=== PATIENT | female | born 1960 | race Caucasian/White ===

== ENCOUNTER 2017-03-05 08:08 | Emergency (ER) | payer OTHER ==
[~2017-03-05] VITALS: Ht 91.4 cm; Wt 50.8 kg
[~2017-03-05 08:08] MED LIST: BCP; CYCL10TA9 PO; HYDR-3720 PO; HYDR-707 PO; HYDR1TAB PO; LEVO1TAB50 PO; LEVO500T69 PO; METH4TAB PO; NAPR-243 PO; PRD20T PO; PROM25SU10 RC; SULF-222 PO; SULF1TAB7 PO
[2017-03-05] MEDS ORDERED: NS IV 1000 ML 1,000 ML IV ONE ×2 (08:28→09:34)
[2017-03-05] MEDS ORDERED: ACETAMINOPHEN 500 MG TAB (TYLENOL) PO STA (08:28)
--- NOTE | 2017-03-05 08:30 | ED General ---
General Chief Complaint: Fever-Adult/Adol Stated Complaint: FLU SYMPTOMS/FEVER Nursing Triage Note: PT CO OF FEVER AND DIARRHEA SINCE FRIDAY Nursing Sepsis Screen: Possible Sepsis Risk Source of Information: Patient Exam Limitations: No Limitations History of Present Illness Time Seen by Provider: 08:20 Initial Comments Here with complaint of fever and diarrhea for the last 2 days. Not better with [id number] treatment. Has had multiple episodes of diarrhea daily. She is taking culturell probiotics and ibuprofen and that is not really helping. Is able to drink fluids. Complains of allover body aches. Timing/Duration: 2-3 Days Severity: Moderate Associated Systoms: No Cough, Fever/Chills, No Headaches, No Shortness of Air, Weakness Allergies and Home Medications Allergies Coded Allergies: No Known Drug Allergies (Unverified , 05/28/12) Home Medications Levonorgestrel-Eth Estradiol 1 Each Tablet, 1 EACH PO, (Reported) Constitutional: see HPI, chills, fever, weakness EENTM: no symptoms reported Respiratory: no symptoms reported, No cough, No short of breath Cardiovascular: no symptoms reported Gastrointestinal: abdominal pain, diarrhea, nausea, No vomiting Genitourinary: no symptoms reported Musculoskeletal: muscle pain (body aches), No neck pain Skin: no symptoms reported Psychiatric/Neurological: No Symptoms Reported All Other Systems Reviewed Negative Unless Noted: Yes Past Xljhidq-Ogbufw-Fumsrz Hx Patient Social History Alcohol Use: Denies Use Recreational Drug Use: No Smoking Status: Never a Smoker Recent Foreign Travel: No Contact w/Someone Who Travel: No Recent Infectious Disease Expo: No Surgeries HX Surgeries: Yes (C5-C6 FUSION) Surgeries: Orthopedic Respiratory Hx Respiratory Disorders: No Cardiovascular Hx Cardiac Disorders: No Neurological Hx Neurological Disorders: Yes (MYELITIS) Reproductive System Hx Reproductive Disorders: No Genitourinary Hx Genitourinary Disorders: No Gastrointestinal Hx Gastrointestinal Disorders: No Musculoskeletal Hx Musculoskeletal Disorders: No Endocrine Hx Endocrine Disorders: No HEENT HX ENT Disorders: No Cancer Hx Cancer: No Psychosocial Hx Psychiatric Problems: No Integumentary HX Skin/Integumentary Disorder: No Blood Transfusions Hx Blood Disorders: No Reviewed Nursing Assessment Reviewed/Agree w Nursing PMH: Yes Family Medical History Significant Family History: No Pertinent Family Hx Physical Exam Vital Signs Vital Sign - Last 12Hours 03/05/17 03/05/17 08:15 09:34 Temp 101.4 Pulse 119 Resp 18 B/P (MAP) 121/85 Pulse Ox 96 O2 Delivery Room Air Capillary Refill : Less Than 3 Seconds General Appearance: WD/WN, Mild Distress (achy) HEENT: PERRL/EOMI, Pharynx Normal Neck: Full Range of Motion, Non Tender, Supple Respiratory: Lungs Clear, Normal Breath Sounds Cardiovascular: No Murmur, Tachycardia Gastrointestinal: Non Tender, Soft Back: Normal Inspection, No CVA Tenderness, No Vertebral Tenderness Extremity: Normal Range of Motion, Non Tender Neurologic/Psychiatric: Alert, Oriented x3 Skin: Normal Color, Warm/Dry Progress/Results/Core Measures Results/Orders Lab Results Laboratory Tests Test 03/05/17 08:20 03/05/17 11:00 Range/Units White Blood Count 11.6 H 4.3-11.0 10^3/uL Red Blood Count 4.75 4.35-5.85 10^6/uL Hemoglobin 14.3 11.5-16.0 G/DL Hematocrit 42 35-52 % Mean Corpuscular Volume 89 80-99 FL Mean Corpuscular Hemoglobin 30 25-34 PG Mean Corpuscular Hemoglobin Concent 34 32-36 G/DL Red Cell Distribution Width 12.6 10.0-14.5 % Platelet Count 195 130-400 10^3/uL Mean Platelet Volume 9.3 7.4-10.4 FL Neutrophils (%) (Auto) 90 H 42-75 % Lymphocytes (%) (Auto) 5 L 12-44 % Monocytes (%) (Auto) 5 0-12 % Eosinophils (%) (Auto) 0 0-10 % Basophils (%) (Auto) 0 0-10 % Neutrophils # (Auto) 10.4 H 1.8-7.8 X 10^3 Lymphocytes # (Auto) 0.6 L 1.0-4.0 X 10^3 Monocytes # (Auto) 0.6 0.0-1.0 X 10^3 Eosinophils # (Auto) 0.0 0.0-0.3 10^3/uL Basophils # (Auto) 0.0 0.0-0.1 10^3/uL Neutrophils % (Manual) 83 % Lymphocytes % (Manual) 2 % Monocytes % (Manual) 5 % Eosinophils % (Manual) 0 % Basophils % (Manual) 0 % Band Neutrophils 10 % Toxic Granulation 1+ Sodium Level 136 135-145 MMOL/L Potassium Level 3.8 3.6-5.0 MMOL/L Chloride Level 104 98-107 MMOL/L Carbon Dioxide Level 21 21-32 MMOL/L Anion Gap 11 5-14 MMOL/L Blood Urea Nitrogen 10 7-18 MG/DL Creatinine 0.89 0.60-1.30 MG/DL Estimat Glomerular Filtration Rate > 60 BUN/Creatinine Ratio 11 Glucose Level 125 H 70-105 MG/DL Calcium Level 9.1 8.5-10.1 MG/DL Total Bilirubin 0.6 0.1-1.0 MG/DL Aspartate Amino Transf (AST/SGOT) 18 5-34 U/L Alanine Aminotransferase (ALT/SGPT) 11 0-55 U/L Alkaline Phosphatase 59 40-136 U/L Total Protein 6.8 6.4-8.2 GM/DL Albumin 4.2 3.2-4.5 GM/DL Urine Color YELLOW Urine Clarity CLEAR Urine pH 5 5-9 Urine Specific [place] 1.010 L 1.016-1.022 Urine Protein NEGATIVE NEGATIVE Urine Glucose (UA) NEGATIVE NEGATIVE Urine Ketones 2+ H NEGATIVE Urine Nitrite NEGATIVE NEGATIVE Urine Bilirubin NEGATIVE NEGATIVE Urine Urobilinogen NORMAL NORMAL MG/DL Urine Leukocyte Esterase NEGATIVE NEGATIVE Urine RBC (Auto) 3+ H NEGATIVE Urine RBC 0-2 /HPF Urine WBC NONE /HPF Urine Squamous Epithelial Cells 2-5 /HPF Urine Crystals NONE /LPF Urine Bacteria TRACE /HPF Urine Casts NONE /LPF Urine Mucus NEGATIVE /LPF Urine Culture Indicated NO My Orders Orders - FOSTER QUINN MD Cbc With Automated Diff (03/05/17 08:28) Comprehensive Metabolic Panel (03/05/17 08:28) Ua Culture If Indicated (03/05/17 08:28) Saline Lock/Iv-Start (03/05/17 08:28) Ns Iv 1000 Ml (Sodium Chloride 0.9%) (03/05/17 08:28) Acetaminophen Tablet (Tylenol Tablet) (03/05/17 08:28) Manual Differential (03/05/17 08:20) Saline Lock/Iv-Start (03/05/17 09:34) Ns Iv 1000 Ml (Sodium Chloride 0.9%) (03/05/17 09:34) Ketorolac Injection (Toradol Injection) (03/05/17 09:34) Rx-Nitroglycerin Sl Tabs (Rx-Nitrostat S (03/05/17 10:00) Medications Given in ED Current Medications Medications Dose Ordered Sig/Deepak Route Start Time Stop Time Status Last Admin Dose Admin Sodium Chloride 1,000 ml @ 0 mls/hr Q0M ONCE IV 03/05/17 08:28 03/05/17 08:31 DC 03/05/17 08:54 1,000 MLS/HR Sodium Chloride 1,000 ml @ 0 mls/hr Q0M ONCE IV 03/05/17 09:34 03/05/17 09:35 DC 03/05/17 09:57 1,000 MLS/HR Vital Signs/I&O Vital Sign - Last 12Hours 03/05/17 03/05/17 08:15 09:34 Temp 101.4 Pulse 119 122 Resp 18 28 B/P (MAP) 121/85 Pulse Ox 96 O2 Delivery Room Air Blood Pressure Mean: 97 Progress Note : Progress Note Seen and evaluated. IV, labs, UA, normal saline 1 L bolus ordered. Tylenol 1 g by mouth ordered. Monitor patient. Not significantly improved after and has not had to urinate yet. Normal saline 1 L bolus repeated. Toradol 30 mg IV ordered. Monitor patient. 1135: Overall better with some residual. Discharged home with return precautions. Patient and family verbalize understanding instructions and agreement with plan. Departure Impression Impression: Primary Impression: Diarrhea Qualified Codes: R19.7 - Diarrhea, unspecified Additional Impression: Viral syndrome Disposition: 01 HOME, SELF-CARE Condition: Stable Departure-Patient Inst. Referrals: JOSELITO TERESA MD (PCP/Family) Primary Care Physician Patient Instructions: Dehydration, Adult (DC), Diarrhea and Traveler's Diarrhea , Adult (DC), Fever, Adult (DC) Add. Discharge Instructions: All discharge instructions reviewed with patient and/or family. Voiced understanding. Clear liquid diet for 24 hours and then advance as tolerated. Follow-up with your Dr. in a few days for recheck. Continue probiotics. Drink plenty of fluids. Return for worse pain, fever, vomiting, weakness, breathing problems or other concerns as needed. You may take ibuprofen 800 mg every 8 hours as needed for pain. You may take Tylenol 1000 mg every 8 hours as needed for pain. FOSTER QUINN MD Mar 05, 2017 08:30
[2017-03-05 08:40] LABS: BASOPHILS % (AUTO) 0 % (0-10); EOSINOPHILS % (AUTO) 0 % (0-10); LYMPHOCYTES # (AUTO) 0.6 X 10^3 (1.0-4.0); LYMPHOCYTES % (AUTO) 5 % (12-44); MEAN CORPUSCULAR HEMOGLOBIN 30 PG (25-34); MEAN CORPUSCULAR HGB CONC 34 G/DL (32-36); MEAN CORPUSCULAR VOLUME 89 FL (80-99); MEAN PLATELET VOLUME 9.3 FL (7.4-10.4); MONOCYTES # (AUTO) 0.6 X 10^3 (0.0-1.0); MONOCYTES % (AUTO) 5 % (0-12); NEUTROPHILS # (AUTO) 10.4 X 10^3 (1.8-7.8); NEUTROPHILS % (AUTO) 90 % (42-75); PLATELET COUNT 195 10^3/uL (130-400); RED BLOOD COUNT 4.75 10^6/uL (4.35-5.85); RED CELL DISTRIBUTION WIDTH 12.6 % (10.0-14.5); WHITE BLOOD COUNT 11.6 10^3/uL (4.3-11.0)
[2017-03-05 09:01] LABS: ALANINE AMINOTRANSFERASE 11 U/L (0-55); ALBUMIN 4.2 GM/DL (3.2-4.5); ANION GAP 11 MMOL/L (5-14); ASPARTATE AMINO TRANSFERASE 18 U/L (5-34); BILIRUBIN,TOTAL 0.6 MG/DL (0.1-1.0); BLOOD UREA NITROGEN 10 MG/DL (7-18); BUN/CREATININE RATIO 11; CALCIUM 9.1 MG/DL (8.5-10.1); CARBON DIOXIDE 21 MMOL/L (21-32); CHLORIDE 104 MMOL/L (98-107); CREATININE SERUM 0.89 MG/DL (0.60-1.30); GFR ESTIMATED > 60; GLUCOSE 125 MG/DL (70-105); POTASSIUM 3.8 MMOL/L (3.6-5.0); SODIUM 136 MMOL/L (135-145); TOTAL PROTEIN 6.8 GM/DL (6.4-8.2)
[2017-03-05 09:15] LABS: BAND NEUTROPHILS 10 %; BASOPHILS % (MANUAL) 0 %; EOSINOPHILS % (MANUAL) 0 %; LYMPHOCYTES % (MANUAL) 2 %; NEUTROPHILS % (MANUAL) 83 %
[2017-03-05] MEDS ORDERED: KETOROLAC 30 MG/ML VIAL IVP STA (09:34)
[2017-03-05] MEDS ORDERED: RX-NITROGLYCERIN 0.4 MG TAB BTL 25'S SL PRN (10:00)
[2017-03-05 11:16] LABS: BILIRUBIN,URINE NEGATIVE (NEGATIVE); KETONES,URINE 2+ (NEGATIVE); LEUKOCYTE ESTERASE ,URINE NEGATIVE (NEGATIVE); NITRITE,URINE NEGATIVE (NEGATIVE); PH,URINE 5 (5-9); PROTEIN,URINE NEGATIVE (NEGATIVE); UROBILINOGEN,URINE NORMAL (NORMAL)
[2017-03-05 11:45] VITALS: BP 121/85
[2017-03-06] MEDS ORDERED: ESTR0.5T PO (08:38)
[2017-03-06] MEDS ORDERED: NF-NORETH5 PO (08:38)
[2017-03-06] MEDS ORDERED: METO-272 PO (08:38)
[2017-03-06] MEDS ORDERED: CALC1TAB PO (10:50)
[2017-03-06] MEDS ORDERED: CYAN10007 PO (10:50)
[2017-03-06] MEDS ORDERED: L. R1CAP3 PO (10:50)
[2017-03-06] MEDS ORDERED: ASCO60LO PO (10:50)
[2017-03-06] MEDS ORDERED: PED18TAB2 PO (10:50)
== END 2017-03-05 11:45 | disposition home or self-care (01) ==
LOC: EDUNIT# 08:08 → ER 08:10
DX: R19.7 Diarrhea, unspecified (principal); B34.9 Viral infection, unspecified; Z98.1 Arthrodesis status
CPT/HCPCS: 36415; 80053; 81000; 85007; 85027; 96361; 96374

== ENCOUNTER 2017-03-06 07:54 | Observation (INO) | payer OTHER ==
[~2017-03-06] VITALS: Ht 170.2 cm; Wt 75.3 kg
[2017-03-06 08:15] LABS: KETONES,URINE 4+ (NEGATIVE); LEUKOCYTE ESTERASE ,URINE 1+ (NEGATIVE); NITRITE,URINE NEGATIVE (NEGATIVE); PH,URINE 5 (5-9); PROTEIN,URINE 3+ (NEGATIVE); UROBILINOGEN,URINE 1 MG/DL (NORMAL)
[2017-03-06] MEDS ORDERED: NS IV 1000 ML 1,000 ML IV SCH (08:15)
[2017-03-06] MEDS ORDERED: KETOROLAC 30 MG/ML VIAL IVP ONE (08:15)
[2017-03-06 08:19] LABS: BILIRUBIN,URINE 1+ (NEGATIVE)
[2017-03-06 08:21] LABS: SQUAMOUS EPITHELIAL CELL,UR >50 /HPF; WBC,URINE RARE /HPF
[2017-03-06 08:26] LABS: BASOPHILS % (AUTO) 0 % (0-10); EOSINOPHILS % (AUTO) 0 % (0-10); LYMPHOCYTES # (AUTO) 0.9 X 10^3 (1.0-4.0); LYMPHOCYTES % (AUTO) 12 % (12-44); MEAN CORPUSCULAR HEMOGLOBIN 30 PG (25-34); MEAN CORPUSCULAR HGB CONC 34 G/DL (32-36); MEAN CORPUSCULAR VOLUME 88 FL (80-99); MEAN PLATELET VOLUME 9.1 FL (7.4-10.4); MONOCYTES # (AUTO) 0.6 X 10^3 (0.0-1.0); MONOCYTES % (AUTO) 7 % (0-12); NEUTROPHILS # (AUTO) 6.2 X 10^3 (1.8-7.8); NEUTROPHILS % (AUTO) 81 % (42-75); PLATELET COUNT 190 10^3/uL (130-400); RED BLOOD COUNT 4.68 10^6/uL (4.35-5.85); RED CELL DISTRIBUTION WIDTH 12.7 % (10.0-14.5); WHITE BLOOD COUNT 7.7 10^3/uL (4.3-11.0)
[2017-03-06] MEDS ORDERED: NF-NORETH5 PO (08:38)
[2017-03-06] MEDS ORDERED: ESTR0.5T PO (08:38)
[2017-03-06] MEDS ORDERED: METO-370 PO (08:38)
[2017-03-06 08:46] LABS: ALANINE AMINOTRANSFERASE 10 U/L (0-55); ANION GAP 13 MMOL/L (5-14); ASPARTATE AMINO TRANSFERASE 20 U/L (5-34); BILIRUBIN,TOTAL 0.6 MG/DL (0.1-1.0); BLOOD UREA NITROGEN 8 MG/DL (7-18); BUN/CREATININE RATIO 9; CALCIUM 8.3 MG/DL (8.5-10.1); CARBON DIOXIDE 20 MMOL/L (21-32); CHLORIDE 105 MMOL/L (98-107); CREATININE SERUM 0.91 MG/DL (0.60-1.30); GFR ESTIMATED > 60; GLUCOSE 98 MG/DL (70-105); POTASSIUM 3.2 MMOL/L (3.6-5.0); SODIUM 138 MMOL/L (135-145); TOTAL PROTEIN 6.9 GM/DL (6.4-8.2)
[2017-03-06 08:49] LABS: BAND NEUTROPHILS 23 %; BASOPHILS % (MANUAL) 0 %; EOSINOPHILS % (MANUAL) 0 %; LYMPHOCYTES % (MANUAL) 16 %; NEUTROPHILS % (MANUAL) 58 %
--- NOTE | 2017-03-06 09:31 | ED General ---
General Chief Complaint: General Problems/Pain Stated Complaint: FLU SYMPTOMS Nursing Triage Note: ADMIT TO ED WAS SEEN IN ED YESTERDAY FOR SAMETHING CON'T TO HAVE BODAY ACHES WITH PAIN MORE IN R LOWER AND DIARRHEA. Nursing Sepsis Screen: No Definite Risk Source of Information: Patient Exam Limitations: No Limitations History of Present Illness Time Seen by Provider: 09:05 Initial Comments The patient is a 56-year-old white female known to me. She was here yesterday with fever, myalgia, diarrhea and dehydration. She states that she did a strictly clear liquid diet for continued to have copious numbers of stools and returns today with generalized malaise and aching. She has not taken any antibiotics recently and has not to her knowledge been exposed to others with a diarrheal illness. Timing/Duration: 3-4 Days Associated Systoms: Fever/Chills, Loss of Appetite, Malaise Allergies and Home Medications Allergies Coded Allergies: No Known Drug Allergies (Unverified , 05/28/12) Home Medications Estradiol 0.5 Mg Tablet, (Reported) Levonorgestrel-Eth Estradiol 1 Each Tablet, 1 EACH PO, (Reported) Metoprolol Succinate 50 Mg Tab.er.24h, (Reported) Norethindrone 5 Mg Tab, (Reported) Constitutional: see HPI EENTM: no symptoms reported Respiratory: no symptoms reported Cardiovascular: no symptoms reported Gastrointestinal: see HPI Genitourinary: other (decrease frequency) Musculoskeletal: muscle pain Skin: no symptoms reported Psychiatric/Neurological: No Symptoms Reported Hematologic/Lymphatic: No Symptoms Reported Immunological/Allergic: no symptoms reported Past Etivrxw-Oygkel-Xzpgfs Hx Patient Social History Alcohol Use: Denies Use Recreational Drug Use: No Smoking Status: Never a Smoker Recent Foreign Travel: No Contact w/Someone Who Travel: No Recent Infectious Disease Expo: No Recent Hopitalizations: Yes Surgeries HX Surgeries: Yes (C5-C6 FUSION) Surgeries: Orthopedic Respiratory Hx Respiratory Disorders: No Cardiovascular Hx Cardiac Disorders: No Neurological Hx Neurological Disorders: Yes (MYELITIS) Reproductive System Hx Reproductive Disorders: No Genitourinary Hx Genitourinary Disorders: No Gastrointestinal Hx Gastrointestinal Disorders: No Musculoskeletal Hx Musculoskeletal Disorders: No Endocrine Hx Endocrine Disorders: No HEENT HX ENT Disorders: No Cancer Hx Cancer: No Psychosocial Hx Psychiatric Problems: No Integumentary HX Skin/Integumentary Disorder: No Blood Transfusions Hx Blood Disorders: No Family Medical History Significant Family History: No Pertinent Family Hx Physical Exam Vital Signs Vital Sign - Last 12Hours 03/06/17 07:57 Temp 100.6 Pulse 100 Resp 18 Pulse Ox 98 O2 Delivery Room Air Capillary Refill : Less Than 3 Seconds General Appearance: Mild Distress, Moderate Distress Eyes: Bilateral Eye Normal Inspection HEENT: Normal ENT Inspection Neck: Normal Inspection Respiratory: Chest Non Tender, Lungs Clear, Normal Breath Sounds, No Accessory Muscle Use, No Respiratory Distress Cardiovascular: Regular Rate, Rhythm, No Edema, No Gallop, No JVD, No Murmur, Normal Peripheral Pulses Gastrointestinal: Abnormal Bowel Sounds (decreased), Tenderness (generalized) Extremity: Normal Capillary Refill Skin: Normal Color, Warm/Dry Lymphatic: No Adenopathy Progress/Results/Core Measures Results/Orders Lab Results Laboratory Tests Test 03/06/17 07:57 03/06/17 08:18 Range/Units Urine Color YELLOW Urine Clarity SLIGHTLY CLOUDY Urine pH 5 5-9 Urine Specific [place] 1.025 H 1.016-1.022 Urine Protein 3+ H NEGATIVE Urine Glucose (UA) NEGATIVE NEGATIVE Urine Ketones 4+ H NEGATIVE Urine Nitrite NEGATIVE NEGATIVE Urine Bilirubin 1+ H NEGATIVE Urine Urobilinogen 1 NORMAL MG/DL Urine Leukocyte Esterase 1+ H NEGATIVE Urine RBC (Auto) 5+ H NEGATIVE Urine RBC 5-10 H /HPF Urine WBC RARE /HPF Urine Squamous Epithelial Cells >50 H /HPF Urine Crystals NONE /LPF Urine Bacteria FEW H /HPF Urine Casts NONE /LPF Urine Mucus SMALL H /LPF Urine Culture Indicated NO White Blood Count 7.7 4.3-11.0 10^3/uL Red Blood Count 4.68 4.35-5.85 10^6/uL Hemoglobin 14.1 11.5-16.0 G/DL Hematocrit 41 35-52 % Mean Corpuscular Volume 88 80-99 FL Mean Corpuscular Hemoglobin 30 25-34 PG Mean Corpuscular Hemoglobin Concent 34 32-36 G/DL Red Cell Distribution Width 12.7 10.0-14.5 % Platelet Count 190 130-400 10^3/uL Mean Platelet Volume 9.1 7.4-10.4 FL Neutrophils (%) (Auto) 81 H 42-75 % Lymphocytes (%) (Auto) 12 12-44 % Monocytes (%) (Auto) 7 0-12 % Eosinophils (%) (Auto) 0 0-10 % Basophils (%) (Auto) 0 0-10 % Neutrophils # (Auto) 6.2 1.8-7.8 X 10^3 Lymphocytes # (Auto) 0.9 L 1.0-4.0 X 10^3 Monocytes # (Auto) 0.6 0.0-1.0 X 10^3 Eosinophils # (Auto) 0.0 0.0-0.3 10^3/uL Basophils # (Auto) 0.0 0.0-0.1 10^3/uL Neutrophils % (Manual) 58 % Lymphocytes % (Manual) 16 % Monocytes % (Manual) 3 % Eosinophils % (Manual) 0 % Basophils % (Manual) 0 % Band Neutrophils 23 % Blood Morphology Comment NORMAL Sodium Level 138 135-145 MMOL/L Potassium Level 3.2 L 3.6-5.0 MMOL/L Chloride Level 105 98-107 MMOL/L Carbon Dioxide Level 20 L 21-32 MMOL/L Anion Gap 13 5-14 MMOL/L Blood Urea Nitrogen 8 7-18 MG/DL Creatinine 0.91 0.60-1.30 MG/DL Estimat Glomerular Filtration Rate > 60 BUN/Creatinine Ratio 9 Glucose Level 98 70-105 MG/DL Calcium Level 8.3 L 8.5-10.1 MG/DL Total Bilirubin 0.6 0.1-1.0 MG/DL Aspartate Amino Transf (AST/SGOT) 20 5-34 U/L Alanine Aminotransferase (ALT/SGPT) 10 0-55 U/L Alkaline Phosphatase 55 40-136 U/L Total Protein 6.9 6.4-8.2 GM/DL Albumin 4.0 3.2-4.5 GM/DL My Orders Orders - COLLEEN GEURRERO MD Cbc With Automated Diff (03/06/17 08:03) Comprehensive Metabolic Panel (03/06/17 08:03) Ua Culture If Indicated (03/06/17 08:03) Ns Iv 1000 Ml (Sodium Chloride 0.9%) (03/06/17 08:15) Ketorolac Injection (Toradol Injection) (03/06/17 08:15) Saline Lock/Iv-Start (03/06/17 08:38) Manual Differential (03/06/17 08:18) Medications Given in ED Current Medications Medications Dose Ordered Sig/Deepak Route Start Time Stop Time Status Last Admin Dose Admin Ketorolac Tromethamine 30 mg ONCE ONCE IVP 03/06/17 08:15 03/06/17 08:16 DC 03/06/17 08:27 30 MG Vital Signs/I&O Vital Sign - Last 12Hours 03/06/17 07:57 Temp 100.6 Pulse 100 Resp 18 B/P (MAP) Pulse Ox 98 O2 Delivery Room Air Departure Communication Progress Notes Discussed with Dr. Lewis who is covering for Dr. Ramirez. Patient will be admitted to observation for IV therapy 30 Impression Impression: Primary Impression: diarrhea/dehydration Disposition: ADMITTED INPATIENT Condition: Stable/Unchanged Admissions Decision to Admit Reason: Admit from ER (General) Decision to Admit/Date: Mar 06, 2017 Time/Decision to Admit Time: 09:37 Departure-Patient Inst. Referrals: JOSELITO RAMIREZ MD (PCP/Family) Primary Care Physician COLLEEN GUERRERO MD Mar 06, 2017 09:31
[2017-03-06] MEDS ORDERED: CATHETER FLUSH 10 ML SYR IV PRN (10:45)
[2017-03-06] MEDS ORDERED: PED18TAB2 PO (10:50)
[2017-03-06] MEDS ORDERED: L. R1CAP3 PO (10:50)
[2017-03-06] MEDS ORDERED: CALC1TAB PO (10:50)
[2017-03-06] MEDS ORDERED: CYAN10007 PO (10:50)
[2017-03-06] MEDS ORDERED: ASCO60LO PO (10:50)
[2017-03-06] MEDS: LACTATED RINGERS 1,000 ML IV SCH ×3 (11:17→21:30)
[2017-03-06 16:00] VITALS: BP 116/71
[2017-03-06] MEDS: ACETAMINOPHEN 500 MG TAB (TYLENOL) PO PRN (16:38)
[2017-03-06 19:32] LABS: ANION GAP 9 MMOL/L (5-14); BLOOD UREA NITROGEN 7 MG/DL (7-18); BUN/CREATININE RATIO 10; CALCIUM 8.6 MG/DL (8.5-10.1); CARBON DIOXIDE 22 MMOL/L (21-32); CHLORIDE 108 MMOL/L (98-107); CREATININE SERUM 0.71 MG/DL (0.60-1.30); GFR ESTIMATED > 60; GLUCOSE 77 MG/DL (70-105); POTASSIUM 3.3 MMOL/L (3.6-5.0); SODIUM 139 MMOL/L (135-145)
--- NOTE | 2017-03-06 19:43 | History & Physical ---
History of Present Illness History of Present Illness Reason for visit/HPI 56 yo F admitted for observation for continued diarrhea of 4 days duration- she was seen yesterday in the emergency department- received 2 bags of IVF and went home- she kept a clear diet and continued with diarrhea- multiple every hour- she feels dehydrated. Denies any vomiting- does have some nausea. No one else in the family has diarrhea but [facility] ER has seen a lot recently as well as hospital employees note a 2-3 day bout of diarrhea. Suspect the diarrhea is viral in nature. She also has noted a fever as did the ER on admission- Pt is admitted as outpatient therapy did not prevail even with IVF hydration- Will admit her as observation for rehydration and further evaluation into etiology. Pt is otherwise healthy 56 yo female with a little hypertension well controlled on blood pressure medication. Date of Admission Mar 06, 2017 at 09:38 Date Seen by Provider: Mar 06, 2017 Time Seen by Provider: 18:05 I consulted on this patient on 03/06/17 19:36 Attending Physician Chanda Ramirez MD Admitting Physician Elkin Lewis MD Consult Allergies and Home Medications Allergies Coded Allergies: Penicillins (Verified Allergy, Intermediate, RASH, 03/06/17) sulfamethoxazole (Verified Adverse Reaction, Severe, NAUSEA, 03/06/17) SEVERE NAUSEA AND BODY ACHES trimethoprim (Verified Adverse Reaction, Severe, NAUSEA, 03/06/17) SEVERE NAUSEA AND BODY ACHES Uncoded Allergies: TAPE (Adverse Reaction, Mild, RASH, 03/06/17) CAUSES SKIN TO BECOME RED AND IRRITATED Home Medications Ascorbic Acid 60 Mg Lozenge, 240 MG PO DAILY, (Reported) TAKES 4 (60 MG) TABLETS Calcium Carbonate/Vitamin D3 1 Each Tablet, 1 TAB PO DAILY, (Reported) Cholestyramine/Aspartame 4 Gm Powd.pack, 4 GM PO DAILY@1000 PRN for DIARRHEA, # 10 Prescribed by: ELKIN LEWIS on 03/08/17 0937 Cyanocobalamin (Vitamin B-12) 1,000 Mcg Tablet.er, 1,000 MCG PO DAILY, (Reported ) Estradiol 0.5 Mg Tablet, 0.5 MG PO DAILY, (Reported) L. Rhamnosus/C/Zinc Cit/Yeast 1 Each Capsule, 1 CAP PO DAILY, (Reported) Metoprolol Succinate 50 Mg Tab.er.24h, 50 MG PO DAILY, (Reported) Norethindrone 5 Mg Tab, 2.5 MG PO DAILY, (Reported) TAKES 1/2 OF A (5 MG) TABLET Ped Multivit #43/Iron Fumarate 18 Mg Tab.chew, 36 MG PO DAILY, (Reported) Past Qwpmkpy-Zpzrbs-Fffcgg Hx Patient Social History Alcohol Use: Denies Use Recreational Drug Use: No Smoking Status: Never a Smoker Physical Abuse Screen: No Sexual Abuse: No Recent Foreign Travel: No Contact w/other who traveled: No Recent Hopitalizations: Yes Recent Infectious Disease Expo: No Surgeries HX Surgeries: Yes (C5-C6 FUSION) Surgeries: Orthopedic Respiratory Hx Respiratory Disorders: No Cardiovascular Hx Cardiovascular Disorders: No Neurological Hx Neurological Disorders: Yes (MYELITIS) Reproductive System Hx Reproductive Disorders: No Genitourinary Hx Genitourinary Disorders: No Gastrointestinal Hx Gastrointestinal Disorders: No Musculoskeletal Hx Musculoskeletal Disorders: No Endocrine Hx Endocrine Disorders: No HEENT HX ENT Disorders: No Cancer Hx Cancer: No Psychosocial Hx Psychiatric Problems: No Integumentary HX Skin/Integumentary Disorder: No Blood Transfusions Hx Blood Disorders: No Family Medical History Significant Family History: No Pertinent Family Hx Review of Systems Review of Systems General: Chills, No Night Sweats HEENT: No Head Aches, No Visual Changes Pulmonary: No Dyspnea, No Cough Cardiovascular: No: Chest Pain, Palpitations, Orthopnea Gastrointestinal: Nausea, Abdominal Pain, Diarrhea, No: Vomiting Genitourinary: No Dysuria, No Frequency Musculoskeletal: No: neck pain, shoulder pain Neurological: Weakness, No: Numbness, Change in speech, Confusion Physical Exam Vital Signs Vital Sign - Last 12Hours 03/06/17 03/06/17 07:57 16:00 Temp 100.6 Pulse 100 Resp 18 B/P (MAP) 116/71 Pulse Ox 98 O2 Delivery Room Air Capillary Refill : Less Than 3 Seconds General Appearance: Mild Distress HEENT: PERRL/EOMI Neck: Full Range of Motion, Non Tender, Supple Respiratory: Chest Non Tender, Lungs Clear, Normal Breath Sounds Cardiovascular: Regular Rate, Rhythm, No Edema Gastrointestinal: Soft, Tenderness (minimal), Other (hyperactive bowel sounds) Rectal: Deferred Back: Normal Inspection, No CVA Tenderness, No Vertebral Tenderness Extremity: Non Tender Neurologic/Psychiatric: Alert, Oriented x3, No Motor/Sensory Deficits, Normal Mood/Affect, field services director II-XII Norm as Tested Skin: Warm/Dry Lymphatic: No Adenopathy Assessment/Plan Assessment/Plan Assessment/Plan 56 yo F *enteritis- suspect viral- IVF, will try loperamide- may also add questran- if bowel movements have not slowed down by tomorrow. *hypokalemia due to GI losses *weight loss- attributed to stress. *hypertension- normtensive- monitor Dispo: plan to monitor overnight- if diarrhea has improved possible d/c to home in AM. Problems: Clinical Quality Measures DVT/VTE Risk/Contraindication: Risk Factor Score Per Nursin RFS Level Per Nursing on Admit: 2=Moderate ELKIN LEWIS MD Mar 06, 2017 19:43
[2017-03-06 20:00] VITALS: BP 106/76
[2017-03-06] MEDS ORDERED: LOPERAMIDE 2 MG (IMODIUM) CAP PO NR (20:04)
[2017-03-07] VITALS: BP_SYST 129; BP_SYST 29; BP_DIAS 67
[2017-03-07] MEDS: LOPERAMIDE 2 MG (IMODIUM) CAP PO PRN ×3 (02:09→17:35)
[2017-03-07] MEDS: LACTATED RINGERS 1,000 ML IV SCH ×5 (02:43→22:34)
[2017-03-07 04:00] VITALS: BP 110/66
[2017-03-07 06:10] LABS: BASOPHILS % (AUTO) 0 % (0-10); EOSINOPHILS % (AUTO) 1 % (0-10); LYMPHOCYTES # (AUTO) 1.1 X 10^3 (1.0-4.0); LYMPHOCYTES % (AUTO) 18 % (12-44); MEAN CORPUSCULAR HEMOGLOBIN 30 PG (25-34); MEAN CORPUSCULAR HGB CONC 34 G/DL (32-36); MEAN CORPUSCULAR VOLUME 88 FL (80-99); MEAN PLATELET VOLUME 9.8 FL (7.4-10.4); MONOCYTES # (AUTO) 0.7 X 10^3 (0.0-1.0); MONOCYTES % (AUTO) 12 % (0-12); NEUTROPHILS # (AUTO) 4.1 X 10^3 (1.8-7.8); NEUTROPHILS % (AUTO) 69 % (42-75); PLATELET COUNT 186 10^3/uL (130-400); RED BLOOD COUNT 4.12 10^6/uL (4.35-5.85); RED CELL DISTRIBUTION WIDTH 12.5 % (10.0-14.5)
[2017-03-07 06:38] LABS: ALANINE AMINOTRANSFERASE 11 U/L (0-55); ALBUMIN 3.5 GM/DL (3.2-4.5); ANION GAP 12 MMOL/L (5-14); ASPARTATE AMINO TRANSFERASE 17 U/L (5-34); BILIRUBIN,TOTAL 0.4 MG/DL (0.1-1.0); BLOOD UREA NITROGEN 5 MG/DL (7-18); BUN/CREATININE RATIO 7; CALCIUM 8.7 MG/DL (8.5-10.1); CARBON DIOXIDE 20 MMOL/L (21-32); CHLORIDE 108 MMOL/L (98-107); GFR ESTIMATED > 60; GLUCOSE 75 MG/DL (70-105); POTASSIUM 3.1 MMOL/L (3.6-5.0); SODIUM 140 MMOL/L (135-145); TOTAL PROTEIN 6.1 GM/DL (6.4-8.2)
[2017-03-07 08:00] VITALS: BP 127/72
[2017-03-07] MEDS: ACETAMINOPHEN 500 MG TAB (TYLENOL) PO PRN (08:06)
[2017-03-07] MEDS ORDERED: YEAST PO SCH (09:00)
[2017-03-07] MEDS ORDERED: [UNRECOGNIZED DRUG - OTHER] PO SCH (09:00)
[2017-03-07] MEDS ORDERED: MAGNESIUM 1 GM/100 ML IVPB 100 ML IV NR (09:04)
[2017-03-07] MEDS ORDERED: KCL 20 MEQ TAB (K-DUR) PO NR (10:00)
[2017-03-07] MEDS: meTOproloL SUCCINATE 50 MG (TOPROL XL) TAB PO SCH (10:11)
--- NOTE | 2017-03-07 10:12 | Progress Note (SOAP) ---
Subjective Subjective Date Seen by Provider: Mar 07, 2017 Time Seen by Provider: 09:00 56 yo F continued diarrhea- Pt did not sleep much overnight due to diarrhea- CLD went right through her- would like to eat some food- crackers sound great. Loperamide not much help. Review of Systems General: No Chills, No Night Sweats HEENT: No Head Aches Pulmonary: No Dyspnea, No Cough Cardiovascular: No: Chest Pain Gastrointestinal: Diarrhea, No: Nausea, Vomiting Genitourinary: No Dysuria, No Frequency Neurological: No: Weakness, Change in speech Objective Exam Vital Signs Vital Signs Date Time Temp Pulse Resp B/P (MAP) Pulse Ox O2 Delivery O2 Flow Rate FiO2 03/08/17 07:52 98.2 69 18 138/63 97 Room Air 03/08/17 04:17 99.7 76 18 96/55 97 Room Air 03/08/17 00:00 97.7 84 20 100/59 97 Room Air 03/07/17 21:00 Room Air 03/07/17 20:00 99.6 76 21 112/72 98 Room Air 03/07/17 16:00 99.2 78 22 101/65 99 Room Air 03/07/17 12:00 97.0 84 18 124/80 99 Room Air I & O 03/09/17 07:00 Intake Total 1000 ml Balance 1000 ml General Appearance: Mild Distress Eyes: Bilateral Eye Normal Inspection HEENT: Normal ENT Inspection Neck: Normal Inspection Respiratory: Chest Non Tender, Lungs Clear, Normal Breath Sounds, No Accessory Muscle Use, No Respiratory Distress Cardiovascular: Regular Rate, Rhythm, No Edema, No Gallop, No JVD, No Murmur, Normal Peripheral Pulses Gastrointestinal: Abnormal Bowel Sounds (decreased), Tenderness (generalized) Extremity: Normal Capillary Refill Skin: Normal Color, Warm/Dry Lymphatic: No Adenopathy Results Lab Laboratory Tests 03/06/17 18:39: Sodium Level 139, Potassium Level 3.3L, Chloride Level 108H, Carbon Dioxide Level 22, Anion Gap 9, Blood Urea Nitrogen 7, Creatinine 0.71, Estimat Glomerular Filtration Rate > 60, BUN/Creatinine Ratio 10, Glucose Level 77, Calcium Level 8.6, Magnesium Level 1.6L 03/07/17 05:14: Sodium Level 140, Potassium Level 3.1L, Chloride Level 108H, Carbon Dioxide Level 20L, Anion Gap 12, Blood Urea Nitrogen 5L, Creatinine 0.70, Estimat Glomerular Filtration Rate > 60, BUN/Creatinine Ratio 7, Glucose Level 75, Calcium Level 8.7, White Blood Count 6.0, Red Blood Count 4.12L, Hemoglobin 12.4 , Hematocrit 36, Mean Corpuscular Volume 88, Mean Corpuscular Hemoglobin 30, Mean Corpuscular Hemoglobin Concent 34, Red Cell Distribution Width 12.5, Platelet Count 186, Mean Platelet Volume 9.8, Neutrophils (%) (Auto) 69, Lymphocytes (%) (Auto) 18, Monocytes (%) (Auto) 12, Eosinophils (%) (Auto) 1, Basophils (%) (Auto) 0, Neutrophils # (Auto) 4.1, Lymphocytes # (Auto) 1.1, Monocytes # (Auto) 0.7, Eosinophils # (Auto) 0.0, Basophils # (Auto) 0.0, Total Bilirubin 0.4, Aspartate Amino Transf (AST/SGOT) 17, Alanine Aminotransferase ( ALT/SGPT) 11, Alkaline Phosphatase 50, Total Protein 6.1L, Albumin 3.5 Assessment/Plan Assessment/Plan Assessment/Plan 56 yo F *enteritis-suspect viral ; IVF, loperamide- add questran- *hypokalemia due to GI losses - replacing *hypomagnesemia- replacing *weight loss- attributed to stress. *hypertension- controlled. Dispo: starting questran to see if it will slow her bowel movements down- pt remains afebrile, WBC normal- just appears to be a serious case of viral diarrhea -it has been going around the hospital lately which usually resolved in 2-3days. Problems: Clinical Quality Measures DVT/VTE Risk/Contraindication: Risk Factor Score Per Nursin RFS Level Per Nursing on Admit: 2=Moderate MORENO CRUZ MD Mar 07, 2017 10:12
[2017-03-07] MEDS ORDERED: CHOLESTYRAMINE 4 GM (QUESTRAN LITE, PREVALITE) PKT PO NR (10:38)
[2017-03-07 12:00] VITALS: BP 124/80
[2017-03-07 16:00] VITALS: BP 101/65
[2017-03-07 20:00] VITALS: BP 112/72
[2017-03-07] MEDS ORDERED: CHOLESTYRAMINE 4 GM (QUESTRAN LITE, PREVALITE) PKT PO ONE (21:15)
[2017-03-08] VITALS: BP 100/59
[2017-03-08] MEDS: LACTATED RINGERS 1,000 ML IV SCH ×2 (02:14→07:47)
[2017-03-08 04:17] VITALS: BP 96/55
[2017-03-08] MEDS: ACETAMINOPHEN 500 MG TAB (TYLENOL) PO PRN (06:13)
[2017-03-08] MEDS: meTOproloL SUCCINATE 50 MG (TOPROL XL) TAB PO SCH (07:47)
[2017-03-08 07:52] VITALS: BP 138/63
[2017-03-08 07:55] LABS: BASOPHILS % (AUTO) 1 % (0-10); EOSINOPHILS # (AUTO) 0.1 10^3/uL (0.0-0.3); EOSINOPHILS % (AUTO) 2 % (0-10); LYMPHOCYTES # (AUTO) 1.4 X 10^3 (1.0-4.0); LYMPHOCYTES % (AUTO) 29 % (12-44); MEAN CORPUSCULAR HEMOGLOBIN 30 PG (25-34); MEAN CORPUSCULAR HGB CONC 34 G/DL (32-36); MEAN CORPUSCULAR VOLUME 88 FL (80-99); MEAN PLATELET VOLUME 9.1 FL (7.4-10.4); MONOCYTES # (AUTO) 0.7 X 10^3 (0.0-1.0); MONOCYTES % (AUTO) 14 % (0-12); NEUTROPHILS # (AUTO) 2.5 X 10^3 (1.8-7.8); NEUTROPHILS % (AUTO) 54 % (42-75); PLATELET COUNT 193 10^3/uL (130-400); RED BLOOD COUNT 3.75 10^6/uL (4.35-5.85); RED CELL DISTRIBUTION WIDTH 12.6 % (10.0-14.5); WHITE BLOOD COUNT 4.7 10^3/uL (4.3-11.0)
[2017-03-08 08:15] LABS: ALANINE AMINOTRANSFERASE 8 U/L (0-55); ALBUMIN 3.1 GM/DL (3.2-4.5); ANION GAP 8 MMOL/L (5-14); ASPARTATE AMINO TRANSFERASE 15 U/L (5-34); BILIRUBIN,TOTAL 0.4 MG/DL (0.1-1.0); BLOOD UREA NITROGEN 2 MG/DL (7-18); BUN/CREATININE RATIO 3; CALCIUM 8.2 MG/DL (8.5-10.1); CARBON DIOXIDE 26 MMOL/L (21-32); CHLORIDE 107 MMOL/L (98-107); CREATININE SERUM 0.64 MG/DL (0.60-1.30); GFR ESTIMATED > 60; GLUCOSE 94 MG/DL (70-105); MAGNESIUM 1.5 MG/DL (1.8-2.4); POTASSIUM 3.3 MMOL/L (3.6-5.0); SODIUM 141 MMOL/L (135-145); TOTAL PROTEIN 5.1 GM/DL (6.4-8.2)
[2017-03-08] MEDS ORDERED: KCL 20 MEQ TAB (K-DUR) PO SCH (09:15)
[2017-03-08] MEDS ORDERED: CHOL4PAC3 PO (09:37)
[2017-03-08] MEDS: MAGNESIUM 1 GM/100 ML IVPB 100 ML IV SCH ×2 (09:43→10:45)
--- NOTE | 2017-03-08 09:44 | Discharge Inst-Simple/Standard ---
Discharge Inst-Standard Discharge Medications New, Converted or Re-Newed RX: Transmitted to Pharmacy Patient Instructions/Follow Up Plan of Care/Instructions/FU: Advance diet as tolerated- starting with saltine crackers- we discussed BRATS diet. may use questran (cholestyramine) as needed for diarrhea- prescription send to [facility]. -Follow up with Dr. Ramirez's office as needed- if diarrhea completely resolves follow up visit is not required. - In interval if questions arise may contact Elkin Lewis MD throught the hospital electron beam operator. Activity as Tolerated: Yes Discharge Diet: Regular Diet (advance as tolerated) Return to The Hospital For: worsening abdominal pain or diarrhea fever Planned Outpatient Orders/Ref. Pneu Vac Indicated: Yes ELKIN LEWIS MD Mar 08, 2017 09:44
--- NOTE | 2017-03-08 09:55 | Discharge Summary ---
Diagnosis/Chief Complaint Date of Admission Mar 06, 2017 at 09:38 Date of Discharge March 08, 2017 Admission Diagnosis Admission Diagnosis *enteritis- suspect viral- *hypokalemia due to GI losses *weight loss- *hypertension- Discharge Diagnosis *enteritis- suspect viral- *hypokalemia due to GI losses *weight loss- *hypertension- *hypomagnesemia Reason Hospital Visit 56 yo F admitted for observation for continued diarrhea of 4 days duration- she was seen yesterday in the emergency department- received 2 bags of IVF and went home- she kept a clear diet and continued with diarrhea- multiple every hour- she feels dehydrated. Denies any vomiting- does have some nausea. No one else in the family has diarrhea but [facility] has seen a lot recently as well as hospital employees note a 2-3 day bout of diarrhea. Suspect the diarrhea is viral in nature. She also has noted a fever as did the ER on admission- Pt is admitted as outpatient therapy did not prevail even with IVF hydration- Will admit her as observation for rehydration and further evaluation into etiology. Pt is otherwise healthy 56 yo female with a little hypertension well controlled on blood pressure medication. No recent antibiotics. Discharge Summary Hospital Course Hospital Course 56 yo female admitted under observation for intractable diarrhea even with iv hydration the day prior to admission. During this hospitalization patient's diarrhea was profuse. Patient was given loperamide without any assistance. She was placed on clear liquid diet initially and all attempts went right through her. She was given a regular diet as she was hungry and had not eaten in 4 days. This too worsened her diarrhea. She was then reduced to saltine crackers and water which seemed to help. With the excessive diarrhea patient developed hypokalemia and hypomagnesemia which were replaced. Pt continued to have diarrhea with minimal sleep the first night. A trial of cholestyramine was given and it helped with giving some bulk to her stools. The night prior to discharge pt did not have any diarrhea. On 03/08/17 patient was stable for discharge with significant improvement- she will continue questran if diarrhea starts to reoccur- she is to slowly advance her diet. Labs Laboratory Tests 03/06/17 07:57: Urine Specific Butler 1.025H, Urine Protein 3+H, Urine Ketones 4+H, Urine Bilirubin 1+H, Urine Leukocyte Esterase 1+H, Urine RBC (Auto) 5+H, Urine RBC 5- 10H, Urine Squamous Epithelial Cells >50H, Urine Bacteria FEWH, Urine Mucus SMALLH 03/06/17 08:18: Neutrophils (%) (Auto) 81H, Lymphocytes # (Auto) 0.9L, Potassium Level 3.2L, Carbon Dioxide Level 20L, Calcium Level 8.3L 03/06/17 18:39: Potassium Level 3.3L, Chloride Level 108H, Magnesium Level 1.6L 03/07/17 05:14: Potassium Level 3.1L, Carbon Dioxide Level 20L, Chloride Level 108H, Red Blood Count 4.12L, Blood Urea Nitrogen 5L, Total Protein 6.1L 03/08/17 07:35: Red Blood Count 3.75L, Hemoglobin 11.2L, Hematocrit 33L, Monocytes (%) (Auto) 14H, Potassium Level 3.3L, Blood Urea Nitrogen 2L, Calcium Level 8.2L, Magnesium Level 1.5L, Alkaline Phosphatase 37L, Total Protein 5.1L, Albumin 3.1L Procedures None. Discharge Physical Examination Allergies: Coded Allergies: Penicillins (Verified Allergy, Intermediate, RASH, 03/06/17) sulfamethoxazole (Verified Adverse Reaction, Severe, NAUSEA, 03/06/17) SEVERE NAUSEA AND BODY ACHES trimethoprim (Verified Adverse Reaction, Severe, NAUSEA, 03/06/17) SEVERE NAUSEA AND BODY ACHES Uncoded Allergies: TAPE (Adverse Reaction, Mild, RASH, 03/06/17) CAUSES SKIN TO BECOME RED AND IRRITATED Vitals & I&Os Vital Signs Date Time Temp Pulse Resp B/P (MAP) Pulse Ox O2 Delivery O2 Flow Rate FiO2 03/08/17 09:00 Room Air 03/08/17 07:52 98.2 69 18 138/63 97 General Appearance: Alert, Oriented X3, Cooperative HEENT: Atraumatic Respiratory: Clear to Auscultation, Normal Air Movement Cardiovascular: Regular Rate Abdominal: Normal Bowel Sounds, Soft Extremities: No Clubbing Skin: No Rashes, No Breakdown Neuro: Normal Gait, Normal Speech, Strength at 5/5 X4 Ext Psych/Mental Status: Mental Status NL, Mood NL Discharge Home Medications Reviewed and agree with Discharge Medication list on patient's Discharge Instruction sheet Condition at Discharge improved Instructions to Patient/Family Please see electronic discharge instructions given to patient. Clinical Quality Measures DVT/VTE Risk/Contraindication: Risk Factor Score Per Nursin RFS Level Per Nursing on Admit: 2=Moderate MORENO CRUZ MD Mar 08, 2017 09:55
[2017-03-08] MEDS ORDERED: CHOLESTYRAMINE 4 GM (QUESTRAN LITE, PREVALITE) PKT PO SCH (10:00)
== END 2017-03-08 09:35 | disposition home or self-care (01) ==
LOC: EDUNIT# 07:54 → ER 07:56 → UNDOADMOB 09:38 → 4TH 09:38 → UNDODISOB 03-08 12:00
PROVIDERS: ADMIT Family Medicine; ATTEND Family Medicine
DX: K52.9 Noninfective gastroenteritis and colitis, unspecified (principal); E87.6 Hypokalemia; R63.4 Abnormal weight loss; I10 Essential (primary) hypertension; E83.42 Hypomagnesemia; Z79.899 Other long term (current) drug therapy
CPT/HCPCS: 36415; 80048; 80053; 81000; 83735; 85007; 85025; 85027; 96361; 96374; G0378

== ENCOUNTER 2018-10-22 09:23 | Inpatient (IN) | payer BC, OTHER ==
[~2018-10-22] VITALS: Ht 170.2 cm; Wt 77.1 kg
[~2018-10-22 09:23] MED LIST changes: +ASCO60LO PO; +CALC1TAB PO; +CHOL4PAC3 PO; +CYAN10007 PO; +ESTR0.5T PO; +L. R1CAP3 PO; +METO-370 PO; +NF-NORETH5 PO; +PED18TAB2 PO
--- OUTSIDE RECORDS SUMMARY | 2018-10-22 09:35 | XMS REPORT | CCD ---
Author Author [facility] Organization [facility] Address [address] [place] [address] Phone Care Team Providers Care Teacher Resource Name Role Phone PP Unavailable CCM Unavailable Summary Purpose Interface Exchange Insurance Providers Payer name Policy type / Coverage type Covered green party ID Effective Begin Date Effective End Date Blue Cross Blue [facility] Blue Cross/Blue Shield [id number] Unknown Family history Father Diagnosis Age At Onset Hypertension Unknown Heart Attack Unknown Social History Social History Element Codes Description Effective Dates Marital status Unknown [place] 07/28/2018 Employment Unknown Currently employed 12/14/[address]: 104643331 Never smoker 12/14/2014 Alcohol history Unknown occasionally drinks alcohol 12/14/2014 Allergies, Adverse Reactions, Alerts Substance Reaction Codes Entered Date Inactivated Date Status * NO KNOWN FOOD ALLERGIES Unknown 12/14/2014 No Inactive Date Active AUGMENTIN RxNorm: 102104 12/14/2014 No Inactive Date Active SULFA(SULFONAMIDE ANTIBIOTICS) Unknown 12/14/2014 No Inactive Date Active Past Medical History Illness Codes Condition Status Onset Date Resolved Date Otalgia, left ear ICD- 9: 388.70 ICD-10: H92.02 Active 07/20/2018 Unknown Other allergic rhinitis ICD-9: 477.8 ICD-10: J30.89 Active 06/11/2017 Unknown Other specified disorders of Eustachian tube, left ear ICD-9: 381.81 ICD-10: H69.82 Active 07/28/2018 Unknown Acute upper respiratory infection, unspecified ICD-9: 465.9 ICD-10: J06.9 Active 07/17/2018 Unknown Acute laryngopharyngitis ICD-9: 465.0 ICD-10: J06.0 Active 06/11/2017 Unknown Other acute sinusitis ICD-9: 461.8 ICD-10: J01.80 Active 06/11/2017 Unknown Hypertension Unknown Active 03/13/2017 Unknown Encounter for follow-up examination after completed treatment for conditions other than malignant neoplasm ICD-9: V67.59 ICD-10: Z09 Active 03/13/2017 Unknown Essential (primary) hypertension ICD-9: 401.9 ICD-10: I10 Active 03/13/2017 Unknown Viral intestinal infection, unspecified ICD-9: 008.8 ICD-10: A08.4 Active 03/13/2017 Unknown Encounter for general adult medical examination without abnormal findings ICD-9: V70.0 ICD-10: Z00.00 Active 10/16/2015 Unknown Acute recurrent maxillary sinusitis ICD-9: 461.0 ICD-10: J01.01 Active 03/07/2016 Unknown Cough ICD-9: 786.2 ICD-10: R05 Active 03/07/2016 Unknown Dizziness and giddiness ICD-9: 780.4 ICD-10: R42 Active 03/04/2016 Unknown Elevated blood-pressure reading, without diagnosis of hypertension ICD-9: 796.2 ICD-10: R03.0 Active 03/04/2016 Unknown Tachycardia, unspecified ICD-9: 785.0 ICD-10: R00.0 Active 03/04/2016 Unknown Overweight ICD-9: 278.02 ICD-10: E66.3 Active 01/25/2016 Unknown Body mass index (BMI) 28.0-28.9, adult ICD-9: V85.24 ICD-10: Z68.28 Active 10/16/2015 Unknown Acute bronchitis, unspecified ICD-9: 466.0 ICD-10: J20.9 Active 10/04/2015 Unknown PREVENTIVE PHYSICAL EXAM ICD-9: V70.0 Active 12/13/2014 Unknown Problems Condition Codes Effective Dates Condition Status Otalgia, left ear ICD- 9: 388.70 ICD-10: H92.02 07/20/2018 Active Other allergic rhinitis ICD-9: 477.8 ICD-10: J30.89 06/11/2017 Active Other specified disorders of Eustachian tube, left ear ICD-9: 381.81 ICD-10: H69.82 07/28/2018 Active Acute upper respiratory infection, unspecified ICD-9: 465.9 ICD-10: J06.9 07/17/2018 Active Acute laryngopharyngitis ICD-9: 465.0 ICD-10: J06.0 06/11/2017 Active Other acute sinusitis ICD-9: 461.8 ICD-10: J01.80 06/11/2017 Active Hypertension Unknown 03/13/2017 Active Encounter for follow-up examination after completed treatment for conditions other than malignant neoplasm ICD-9: V67.59 ICD-10: Z09 03/13/2017 Active Essential (primary) hypertension ICD-9: 401.9 ICD-10: I10 03/13/2017 Active Viral intestinal infection, unspecified ICD-9: 008.8 ICD-10: A08.4 03/13/2017 Active Encounter for general adult medical examination without abnormal findings ICD-9: V70.0 ICD-10: Z00.00 10/16/2015 Active Acute recurrent maxillary sinusitis ICD-9: 461.0 ICD-10: J01.01 03/07/2016 Active Cough ICD-9: 786.2 ICD-10: R05 03/07/2016 Active Dizziness and giddiness ICD-9: 780.4 ICD-10: R42 03/04/2016 Active Elevated blood-pressure reading, without diagnosis of hypertension ICD-9: 796.2 ICD-10: R03.0 03/04/2016 Active Tachycardia, unspecified ICD-9: 785.0 ICD-10: R00.0 03/04/2016 Active Overweight ICD-9: 278.02 ICD-10: E66.3 01/25/2016 Active Body mass index (BMI) 28.0-28.9, adult ICD-9: V85.24 ICD-10: Z68.28 10/16/2015 Active Acute bronchitis, unspecified ICD-9: 466.0 ICD-10: J20.9 10/04/2015 Active PREVENTIVE PHYSICAL EXAM ICD-9: V70.0 12/13/2014 Active Medications Medication Codes Instructions Start Date Stop Date Status Fill Instructions Flonase Allergy Relief 50 mcg/actuation nasal spray, suspension RxNorm: 0352594 USE 1 SPRAY(S) IN EACH NOSTRIL TWICE DAILY 09/08/2018 No Stop Date Active Vilma Allergy 180 mg tablet RxNorm: 302395 1 Tablet(s) PO daily 07/28/2018 08/26/2018 Inactive Kenalog 40 mg/mL suspension for injection RxNorm: 1093814 1.5 Milliliter(s) Inj 07/20/2018 07/20/2018 Inactive prednisone 20 mg tablet RxNorm: 804416 1 Tablet(s) PO BID 07/2007/24/2018 Inactive morning and noon cefdinir 300 mg capsule RxNorm: 894816 1 Capsule(s) PO BID 07/26/2018 Inactive Zithromax Z-Davis 250 mg tablet RxNorm: 637194 1 Tablet(s) PO UD 07/17/2018 07/21/2018 Inactive Kenalog 40 mg/mL suspension for injection RxNorm: 5052587 Milliliter(s) Inj 07/17/2018 07/17/2018 Inactive Flonase Allergy Relief 50 mcg/actuation nasal spray, suspension RxNorm: 6500473 USE 1 SPRAY(S) IN EACH NOSTRIL TWICE DAILY 04/29/2018 09/07/2018 Inactive Flonase Allergy Relief 50 mcg/actuation nasal spray, suspension RxNorm: 3295334 USE ONE SPRAY(S) IN EACH NOSTRIL TWICE DAILY 11/19/2017 04/28/2018 Inactive Zithromax Z-Davis 250 mg tablet RxNorm: 420884 1 Tablet(s) PO UD 09/15/2017 09/19/2017 Inactive Flonase Allergy Relief 50 mcg/actuation nasal spray, suspension RxNorm: 4540828 1 Marathon NASAL BID 06/11/20172016 Inactive Zithromax Z-Davis 250 mg tablet RxNorm: 760475 1 Tablet(s) PO UD 06/11/2017 06/15/2017 Inactive Zithromax Z-Davis 250 mg tablet RxNorm: 571810 1 Tablet(s) PO UD 03/08/2016 03/12/2016 Inactive Cardizem CD 120 mg capsule,extended release RxNorm: 983129 1 Capsule(s) PO daily 03/05/2016 03/07/2016 Inactive phentermine 37.5 mg capsule RxNorm: 104825 1 Capsule(s) PO daily 12/22/2015 01/20/2016 Inactive norethindrone acetate 5 mg tablet RxNorm: 1337556 1/2 Tablet(s) PO daily 11/14/2015 12/13/2015 Inactive phentermine 37.5 mg capsule RxNorm: 558173 1 Capsule(s) PO daily 11/14/2015 12/13/2015 Inactive phentermine 37.5 mg capsule RxNorm: 221134 Capsule(s) PO 201511/13/2015 Inactive cefdinir 300 mg capsule RxNorm: 784677 1 Capsule(s) PO BID 10/11/2015 Inactive Zithromax Z-Davis 250 mg tablet RxNorm: 735816 1 Tablet(s) PO UD 09/05/2015 03/04/2016 Inactive 1 zpack estradiol 0.5 mg tablet RxNorm: 962924 1 Tablet(s) PO daily No Start Date Active metoprolol succinate ER 50 mg tablet,extended release 24 hr RxNorm: 036998 1 Tablet(s) PO daily Dr Milly lombardi No Start Date Active Mobic 15 mg tablet RxNorm: 191218 1 Tablet(s) PO daily No Start Date Active Zithromax Z-Davis 250 mg tablet RxNorm: 377273 1 Tablet(s) PO UD No Start Date 09/04/2015 Inactive 1 zpack Medication Administered Medication Codes Instructions Start Date Status Kenalog 40 mg/mL suspension for injection RxNorm: 6974416 1.5Milliliter 07/20/2018 No longer Active Kenalog 40 mg/mL suspension for injection RxNorm: 2117366 Milliliter 07/17/2018 No longer Active Immunizations Vaccine Codes Date Status PPD Unknown 11/14/2015 completed Assessments Condition Codes Effective Dates Other specified disorders of Eustachian tube, left ear ICD- 10: H69.82 ICD-9: 381.81 07/28/2018 Other allergic rhinitis ICD-10: J30.89 ICD-9: 477.8 07/28/2018 Otalgia, left ear ICD-10: H92.02 ICD-9: 388.70 07/28/2018 Acute upper respiratory infection, unspecified ICD-10: J06.9 ICD-9: 465.9 07/20/2018 Other acute sinusitis ICD-10: J01.80 ICD-9: 461.8 06/11/2017 Acute laryngopharyngitis ICD-10: J06.0 ICD-9: 465.0 06/11/2017 Viral intestinal infection, unspecified ICD-10: A08.4 ICD-9: 008.8 03/13/2017 Encounter for follow-up examination after completed treatment for conditions other than malignant neoplasm ICD-10: Z09 ICD-9: V67.59 03/13/2017 Essential (primary) hypertension ICD-10: I10 ICD-9: 401.9 03/13/2017 Encounter for general adult medical examination without abnormal findings ICD-10: Z00.00 ICD-9: V70.0 01/30/2017 Acute recurrent maxillary sinusitis ICD-10: J01.01 ICD-9: 461.0 03/08/2016 Cough ICD-10: R05 ICD-9: 786.2 03/08/2016 Tachycardia, unspecified ICD-10: R00.0 ICD-9: 785.0 03/05/2016 Dizziness and giddiness ICD-10: R42 ICD-9: 780.4 03/05/2016 Elevated blood-pressure reading, without diagnosis of hypertension ICD-10: R03.0 ICD-9: 796.2 03/05/2016 Overweight ICD-10: E66.3 ICD-9: 278.02 01/26/2016 Body mass index (BMI) 28.0-28.9, adult ICD-10: Z68.28 ICD-9: V85.24 10/17/2015 Acute bronchitis, unspecified ICD-10: J20.9 ICD-9: 466.0 10/05/2015 PREVENTIVE PHYSICAL EXAM ICD-9: V70.0 Reason For Visit Reason For Visit Effective Dates Notes earache 07/28/2018 earache 07/20/2018 cough 07/17/2018 sinus congestion 06/11/2017 Hospital Follow Up 03/13/2017 hypertension 01/30/2017 cough 03/08/2016 palpitations 03/05/2016 Weight follow up 01/26/2016 Weight follow up 12/22/2015 Weight follow up 11/14/2015 Hospital Follow Up 10/17/2015 Hospital Follow Up 10/05/2015 ~generic 12/14/2014 Results Observation Observation Code Item Item Code Result Date Tsh Ord6 hTSH II 1.25 uIU/mL 01/27/2017 Cbc With Differential Ord2 WBC 4.45 K/ul 01/27/2017 Cbc With Differential Ord2 RBC 4.67 M/ul 01/27/2017 Cbc With Differential Ord2 HGB 14.3 g/dl 01/27/2017 Cbc With Differential Ord2 HCT 42.5 % 01/27/2017 Cbc With Differential Ord2 Neut% 53.3 % 01/27/2017 Cbc With Differential Ord2 MCV 91.0 fl 01/27/2017 Cbc With Differential Ord2 Lymph% 37.5 % 01/27/2017 Cbc With Differential Ord2 MCH 30.6 pg 01/27/2017 Cbc With Differential Ord2 [place]% 7.0 % 01/27/2017 Cbc With Differential Ord2 MCHC 33.6 pg 01/27/2017 Cbc With Differential Ord2 Eos% 1.8 % 01/27/2017 Cbc With Differential Ord2 PLT 229 K/ul 01/27/2017 Cbc With Differential Ord2 Baso% 0.4 % 01/27/2017 Cbc With Differential Ord2 RDW 12.9 % 01/27/2017 Cbc With Differential Ord2 Neut ABS# 2.37 K/ul 01/27/2017 Cbc With Differential Ord2 Lymph ABS# 1.67 K/ul 01/27/2017 Cbc With Differential Ord2 [place] ABS# 0.3 K/ul 01/27/2017 Cbc With Differential Ord2 Eos ABS# 0.1 K/ul 01/27/2017 Cbc With Differential Ord2 Baso ABS# 0.0 K/ul 01/27/2017 Lipid Ord30 CHOL 168 mg/dL 01/27/2017 Lipid Ord30 HDL 50.0 mg/dl 01/27/2017 Lipid Ord30 TRIG 69 mg/dL 01/27/2017 Lipid Ord30 LDL 104 mg/dL 01/27/2017 Lipid Ord30 C/HDL 3.4 Ratio 01/27/2017 Comp Metabolic Aix050 NA 141 mEq/L 01/27/2017 Comp Metabolic Hvy734 K 3.9 mEq/L 01/27/2017 Comp Metabolic Qjm254 CL 105 mEq/L 01/27/2017 Comp Metabolic Tcc941 CO2 26.0 mEq/L 01/27/2017 Comp Metabolic Qrf621 ANION GAP 14 01/27/2017 Comp Metabolic Jfp385 GLUCOSE 83 mg/dL 01/27/2017 Comp Metabolic Enk147 Creat 1.0 mg/dL 01/27/2017 Comp Metabolic Zmy376 eGFR 65 ml/min/1.73m2 01/27/2017 Comp Metabolic Rqx969 BUN 21 mg/dL 01/27/2017 Comp Metabolic Zsi601 B/C Ratio 22.1 Ratio 01/27/2017 Comp Metabolic Nfm706 CALCIUM 9.4 mg/dL 01/27/2017 Comp Metabolic Vso587 ALK PHOS 47 U/L 01/27/2017 Comp Metabolic Uyq155 AST(SGOT) 15 U/L 01/27/2017 Comp Metabolic Elh399 ALT(SGPT) 10 U/L 01/27/2017 Comp Metabolic Llp433 BILI T 0.8 mg/dL 01/27/2017 Comp Metabolic Dku125 ALBUMIN 4.5 g/dL 01/27/2017 Comp Metabolic Wjf594 TPRO 6.7 g/dL 01/27/2017 Comp Metabolic Ujo633 GLOB 2.2 g/dL 01/27/2017 Comp Metabolic Qsb190 A/G Ratio 2.0 Ratio 01/27/2017 Comp Metabolic Cln313 Osmo 283 mOsmo 01/27/2017 Review of Systems System Result Effective Dates Constitutional recent illness 07/28/2018 Constitutional No anorexia 07/28/2018 Constitutional No night sweats 2018 Constitutional No chills 07/28/2018 Constitutional No diaphoresis 07/28/2018 Constitutional fatigue 07/28/2018 Constitutional No fever 07/28/2018 Constitutional No insomnia 07/28/2018 Constitutional No malaise 07/28/2018 Constitutional No weight loss 07/28/2018 Constitutional No weight gain 07/28/2018 Eyes No eye discharge 07/28/2018 Eyes No eye erythema 07/28/2018 Ears/Nose/Throat/Neck No dizziness 2018 Ears/Nose/Throat/Neck nasal allergies 02/2019 Ears/Nose/Throat/Neck No nasal discharge 07/28/2018 Ears/Nose/Throat/Neck No sinus congestion 07/28/2018 Ears/Nose/Throat/Neck sore throat 2018 Cardiovascular No chest pain/pressure 02/2019 Cardiovascular No dyspnea 07/28/2018 Cardiovascular No edema 07/28/2018 Respiratory No cough 07/28/2018 Gastrointestinal No abdominal pain 2018 Gastrointestinal No constipation 2018 Gastrointestinal No diarrhea 07/28/2018 Genitourinary/Nephrology No dysuria 07/28 Musculoskeletal No joint complaint 2018 Dermatologic No rash 07/28/2018 Neurologic No alteration of consciousness 07/28/2018 Ears/Nose/Throat/Neck otalgia 07/28/2018 Constitutional recent illness 07/17/2018 Constitutional No anorexia 07/17/2018 Constitutional No night sweats 2017 Constitutional No chills 07/17/2018 Constitutional No diaphoresis 07/17/2018 Constitutional No fatigue 07/17/2018 Constitutional No fever 07/17/2018 Constitutional No insomnia 07/17/2018 Constitutional No malaise 07/17/2018 Constitutional No weight loss 07/17/2018 Constitutional No weight gain 07/17/2018 Eyes No eye discharge 07/17/2018 Eyes No eye erythema 07/17/2018 Ears/Nose/Throat/Neck No dizziness 2017 Ears/Nose/Throat/Neck nasal discharge Ears/Nose/Throat/Neck nasal allergies Ears/Nose/Throat/Neck otalgia 07/17/2018 Ears/Nose/Throat/Neck sinus congestion Ears/Nose/Throat/Neck sore throat 2017 Cardiovascular No chest pain/pressure Cardiovascular No dyspnea 07/17/2018 Cardiovascular No edema 07/17/2018 Respiratory cough 07/17/2018 Gastrointestinal No abdominal pain 2017 Gastrointestinal No constipation 2017 Gastrointestinal No diarrhea 07/17/2018 Genitourinary/Nephrology No dysuria 07/17 Musculoskeletal No joint complaint 2017 Dermatologic No rash 07/17/2018 Neurologic No alteration of consciousness 07/17/2018 Constitutional recent illness 06/11/2017 Constitutional No chills 06/11/2017 Constitutional No diaphoresis 06/11/2017 Constitutional No fever 06/11/2017 Eyes No eye erythema 06/11/2017 Ears/Nose/Throat/Neck nasal allergies Ears/Nose/Throat/Neck nasal discharge Ears/Nose/Throat/Neck postnasal drip Ears/Nose/Throat/Neck sinus congestion Ears/Nose/Throat/Neck sore throat 2016 Cardiovascular No chest pain/pressure Cardiovascular No dyspnea 06/11/2017 Respiratory No chest congestion 2016 Respiratory cough 06/11/2017 Respiratory No dyspnea 06/11/2017 Gastrointestinal No constipation 2016 Gastrointestinal No diarrhea 06/11/2017 Gastrointestinal No nausea 06/11/2017 Gastrointestinal No vomiting 06/11/2017 Dermatologic No rash 06/11/2017 Neurologic No alteration of consciousness 06/11/2017 Neurologic No mental status change 2016 Ears/Nose/Throat/Neck otalgia 06/11/2017 Constitutional recent illness 03/13/2017 Constitutional No anorexia 03/13/2017 Constitutional No night sweats 2016 Constitutional No chills 03/13/2017 Constitutional No diaphoresis 03/13/2017 Constitutional No fatigue 03/13/2017 Constitutional No fever 03/13/2017 Constitutional No insomnia 03/13/2017 Constitutional No malaise 03/13/2017 Constitutional weight loss 03/13/2017 Constitutional No weight gain 03/13/2017 Eyes No eye discharge 03/13/2017 Eyes No eye erythema 03/13/2017 Ears/Nose/Throat/Neck No dizziness 2016 Ears/Nose/Throat/Neck No headache 2016 Cardiovascular No chest pain/pressure Cardiovascular No dyspnea 03/13/2017 Respiratory No cough 03/13/2017 Gastrointestinal No abdominal pain 2016 Gastrointestinal No constipation 2016 Gastrointestinal No diarrhea 03/13/2017 Genitourinary/Nephrology No dysuria 03/13 Musculoskeletal No joint complaint 2016 Dermatologic No rash 03/13/2017 Neurologic No alteration of consciousness 03/13/2017 Psychiatric No depression 03/13/2017 Endocrine No dry or coarse skin 2016 Hematologic/Lymphatic No abnormal ecchymoses 03/13/2017 Constitutional No recent illness 2016 Constitutional No anorexia 01/30/2017 Constitutional No night sweats 2016 Constitutional No chills 01/30/2017 Constitutional No diaphoresis 01/30/2017 Constitutional No fatigue 01/30/2017 Constitutional No fever 01/30/2017 Constitutional No insomnia 01/30/2017 Constitutional No malaise 01/30/2017 Constitutional No weight loss 01/30/2017 Constitutional No weight gain 01/30/2017 Eyes No eye discharge 01/30/2017 Eyes No eye erythema 01/30/2017 Ears/Nose/Throat/Neck No dizziness 2016 Ears/Nose/Throat/Neck No headache 2016 Cardiovascular No chest pain/pressure Cardiovascular No dyspnea 01/30/2017 Cardiovascular No edema 01/30/2017 Respiratory No cough 01/30/2017 Gastrointestinal No abdominal pain 2016 Gastrointestinal No constipation 2016 Gastrointestinal No diarrhea 01/30/2017 Genitourinary/Nephrology No dysuria 01/30 Musculoskeletal No joint complaint 2016 Dermatologic No rash 01/30/2017 Neurologic No alteration of consciousness 01/30/2017 Psychiatric No anxiety 01/30/2017 Endocrine No dry or coarse skin 2016 Hematologic/Lymphatic No abnormal bleeding and bruising 01/30/2017 Constitutional recent illness 03/08/2016 Constitutional No anorexia 03/08/2016 Constitutional No night sweats 2015 Constitutional No chills 03/08/2016 Constitutional No diaphoresis 03/08/2016 Constitutional No fatigue 03/08/2016 Constitutional No fever 03/08/2016 Constitutional No insomnia 03/08/2016 Constitutional No malaise 03/08/2016 Constitutional No weight loss 03/08/2016 Constitutional No weight gain 03/08/2016 Eyes No eye discharge 03/08/2016 Eyes No eye erythema 03/08/2016 Ears/Nose/Throat/Neck No dizziness 2015 Ears/Nose/Throat/Neck No headache 2015 Ears/Nose/Throat/Neck nasal allergies Ears/Nose/Throat/Neck nasal discharge Ears/Nose/Throat/Neck sinus congestion Ears/Nose/Throat/Neck No sore throat Ears/Nose/Throat/Neck otalgia 03/08/2016 Cardiovascular No chest pain/pressure Cardiovascular No dyspnea 03/08/2016 Respiratory productive sputum 03/08/2016 Respiratory cough 03/08/2016 Gastrointestinal No abdominal pain 2015 Dermatologic No rash 03/08/2016 Neurologic No alteration of consciousness 03/08/2016 Musculoskeletal No stiffness 03/08/2016 Constitutional recent illness 03/05/2016 Ears/Nose/Throat/Neck dizziness 2015 Ears/Nose/Throat/Neck No headache 2015 Eyes No eye discharge 03/05/2016 Eyes No eye erythema 03/05/2016 Cardiovascular dyspnea 03/05/2016 Cardiovascular near-syncope/dizziness Cardiovascular palpitations 03/05/2016 Respiratory No productive sputum 2015 Respiratory No cough 03/05/2016 Gastrointestinal No abdominal pain 2015 Gastrointestinal nausea 03/05/2016 Genitourinary/Nephrology No dysuria 03/05 Musculoskeletal No joint complaint 2015 Dermatologic No rash 03/05/2016 Neurologic No alteration of consciousness 03/05/2016 Psychiatric anxiety 03/05/2016 Ears/Nose/Throat/Neck nasal discharge Constitutional No recent illness 2015 Constitutional No night sweats 2015 Constitutional No anorexia 01/26/2016 Constitutional No chills 01/26/2016 Constitutional No diaphoresis 01/26/2016 Constitutional No fatigue 01/26/2016 Constitutional No fever 01/26/2016 Constitutional No insomnia 01/26/2016 Constitutional No malaise 01/26/2016 Constitutional No weight loss 01/26/2016 Constitutional No weight gain 01/26/2016 Constitutional No recent illness 2015 Constitutional No anorexia 12/22/2015 Constitutional No night sweats 2015 Constitutional No chills 12/22/2015 Constitutional No diaphoresis 12/22/2015 Constitutional No fatigue 12/22/2015 Constitutional No fever 12/22/2015 Constitutional No insomnia 12/22/2015 Constitutional No malaise 12/22/2015 Constitutional weight loss 12/22/2015 Constitutional No weight gain 12/22/2015 Constitutional No recent illness 2015 Constitutional No anorexia 11/14/2015 Constitutional No night sweats 2015 Constitutional No chills 11/14/2015 Constitutional No diaphoresis 11/14/2015 Constitutional No fatigue 11/14/2015 Constitutional No fever 11/14/2015 Constitutional No insomnia 11/14/2015 Constitutional No malaise 11/14/2015 Constitutional weight loss 11/14/2015 Constitutional No weight gain 11/14/2015 Constitutional No recent illness 2015 Constitutional No anorexia 10/17/2015 Constitutional No night sweats 2015 Constitutional No chills 10/17/2015 Constitutional No diaphoresis 10/17/2015 Constitutional No fatigue 10/17/2015 Constitutional No fever 10/17/2015 Constitutional No malaise 10/17/2015 Constitutional No weight loss 10/17/2015 Constitutional No weight gain 10/17/2015 Constitutional No insomnia 10/17/2015 Eyes No eye discharge 10/17/2015 Eyes No eye erythema 10/17/2015 Ears/Nose/Throat/Neck No dizziness 2015 Ears/Nose/Throat/Neck No headache 2015 Cardiovascular No chest pain/pressure Cardiovascular No dyspnea 10/17/2015 Cardiovascular No edema 10/17/2015 Respiratory No cough 10/17/2015 Gastrointestinal No abdominal pain 2015 Gastrointestinal No constipation 2015 Gastrointestinal No diarrhea 10/17/2015 Genitourinary/Nephrology No dysuria 10/16 Musculoskeletal No joint complaint 2015 Dermatologic No rash 10/17/2015 Neurologic No alteration of consciousness 10/17/2015 Psychiatric No anxiety 10/17/2015 Endocrine No dry or coarse skin 2015 Hematologic/Lymphatic No abnormal bleeding and bruising 10/17/2015 Constitutional recent illness 10/05/2015 Constitutional No anorexia 10/05/2015 Constitutional No night sweats 2015 Constitutional chills 10/05/2015 Constitutional No diaphoresis 10/05/2015 Constitutional No fatigue 10/05/2015 Constitutional No fever 10/05/2015 Constitutional No insomnia 10/05/2015 Constitutional No malaise 10/05/2015 Constitutional No weight loss 10/05/2015 Constitutional No weight gain 10/05/2015 Eyes No eye discharge 10/05/2015 Eyes No eye erythema 10/05/2015 Ears/Nose/Throat/Neck No dizziness 2015 Ears/Nose/Throat/Neck nasal allergies Cardiovascular No chest pain/pressure Respiratory productive sputum 10/05/2015 Respiratory chest congestion 10/05/2015 Respiratory cough 10/05/2015 Gastrointestinal No abdominal pain 2015 Gastrointestinal No constipation 2015 Gastrointestinal No diarrhea 10/05/2015 Genitourinary/Nephrology No dysuria 10/04 Musculoskeletal No joint complaint 2015 Dermatologic No rash 10/05/2015 Constitutional No fatigue 12/14/2014 Constitutional No fever 12/14/2014 Constitutional No insomnia 12/14/2014 Eyes No eye discharge 12/14/2014 Eyes No eye erythema 12/14/2014 Ears/Nose/Throat/Neck No headache 2014 Cardiovascular No chest pain/pressure Cardiovascular No edema 12/14/2014 Cardiovascular No near-syncope/dizziness 12/14/2014 Cardiovascular No syncope 12/14/2014 Respiratory No productive sputum 2014 Respiratory No chest congestion 2014 Respiratory No chest tightness 2014 Respiratory No cough 12/14/2014 Respiratory No dyspnea 12/14/2014 Gastrointestinal No abdominal pain 2014 Gastrointestinal No constipation 2014 Gastrointestinal No diarrhea 12/14/2014 Genitourinary/Nephrology No breast complaint 12/14/2014 Genitourinary/Nephrology No dysuria 12/14 Genitourinary/Nephrology No hematuria Genitourinary/Nephrology No urinary urgency 12/14/2014 Genitourinary/Nephrology No vaginal discharge 12/14/2014 Musculoskeletal No joint complaint 2014 Neurologic No alteration of consciousness 12/14/2014 Psychiatric No anxiety 12/14/2014 Psychiatric No depression 12/14/2014 Dermatologic No rash 12/14/2014 Dermatologic No scar 12/14/2014 Physical Exam Exam Name System Name Item Name Status Result Effective Dates Notes Full Exam - Cardiology Integument inspection/palpation Overall: no rash, lesions 07/28/2018 None Full Exam - Cardiology Psychiatric orientation/consciousness Overall: oriented to person, place and time 07/28/2018 None Full Exam - ENT Constitutional general appearance Overall: well nourished 07/28/2018 None Full Exam - ENT Constitutional general appearance Overall: well developed 07/28/2018 None Full Exam - ENT Constitutional general appearance Overall: in no acute distress 07/28/2018 None Full Exam - ENT Ears/Nose/Throat otoscopic exam Overall: external auditory canals normal 07/28/2018 None Full Exam - ENT Ears/Nose/Throat otoscopic exam Overall: tympanic membranes normal 07/28/2018 None Full Exam - ENT Ears/Nose/Throat oropharynx Overall: oral mucosa clear 07/28/2018 None Full Exam - ENT Face and Head palpation Left maxillary sinus: tender 07/28/2018 None Full Exam - ENT Face and Head palpation Right maxillary sinus: nontender 07/28/2018 None Full Exam - ENT Respiratory inspection Overall: no retractions 07/28/2018 None Full Exam - ENT Respiratory inspection Overall: normal rate 02/2019 None Full Exam - ENT Respiratory auscultation Overall: breath sounds clear bilaterally 07/28/2018 None Full Exam - ENT Cardiovascular auscultation of heart Overall: regular rate 07/28/2018 None Full Exam - ENT Cardiovascular auscultation of heart Overall: normal heart sounds 07/28/2018 None Full Exam - ENT Lymphatic palpation of lymph nodes Overall: anterior cervical chain benign 07/28/2018 None Full Exam - ENT Lymphatic palpation of lymph nodes Overall: posterior cervical chain benign 07/28/2018 None Full Exam - ENT Neurologic orientation Overall: oriented to person, place and time 07/28/2018 None Full Exam - ENT Constitutional general appearance Overall: well nourished 07/17/2018 None Full Exam - ENT Constitutional general appearance Overall: well developed 07/17/2018 None Full Exam - ENT Constitutional general appearance Overall: in no acute distress 07/17/2018 None Full Exam - ENT Ears/Nose/Throat otoscopic exam Overall: external auditory canals normal 07/17/2018 None Full Exam - ENT Ears/Nose/Throat otoscopic exam Overall: tympanic membranes normal 07/17/2018 None Full Exam - ENT Ears/Nose/Throat oropharynx Overall: oral mucosa clear 07/17/2018 None Full Exam - ENT Face and Head palpation Left maxillary sinus: tender 07/17/2018 None Full Exam - ENT Face and Head palpation Right maxillary sinus: tender 07/17/2018 None Full Exam - ENT Respiratory inspection Overall: no retractions 07/17/2018 None Full Exam - ENT Respiratory inspection Overall: normal rate None Full Exam - ENT Respiratory auscultation Overall: breath sounds clear bilaterally 07/17/2018 None Full Exam - ENT Cardiovascular auscultation of heart Overall: regular rate 07/17/2018 None Full Exam - ENT Cardiovascular auscultation of heart Overall: normal heart sounds 07/17/2018 None Full Exam - ENT Lymphatic palpation of lymph nodes Overall: anterior cervical chain benign 07/17/2018 None Full Exam - ENT Lymphatic palpation of lymph nodes Overall: posterior cervical chain benign 07/17/2018 None Full Exam - ENT Neurologic orientation Overall: oriented to person, place and time 07/17/2018 None Full Exam - Cardiology Psychiatric orientation/consciousness Overall: oriented to person, place and time 07/17/2018 None Full Exam - Cardiology Integument inspection/palpation Overall: no rash, lesions 07/17/2018 None Full Exam - ENT Constitutional general appearance Overall: well nourished 06/11/2017 None Full Exam - ENT Constitutional general appearance Overall: well developed 06/11/2017 None Full Exam - ENT Constitutional general appearance Overall: in no acute distress 06/11/2017 None Full Exam - ENT Ears/Nose/Throat otoscopic exam Overall: external auditory canals normal 06/11/2017 None Full Exam - ENT Ears/Nose/Throat otoscopic exam Left tympanic membrane: air -fluid level 06/11/2017 None Full Exam - ENT Ears/Nose/Throat otoscopic exam Right tympanic membrane: air-fluid level 06/11/2017 None Full Exam - ENT Ears/Nose/Throat lips/ teeth/gingiva Overall: benign lips 06/11/2017 None Full Exam - ENT Ears/Nose/Throat oropharynx Overall: oral mucosa clear 06/11/2017 None Full Exam - ENT Ears/Nose/Throat oropharynx Posterior Pharynx: clear post nasal drainage 06/11/2017 None Full Exam - ENT Ears/Nose/Throat oropharynx Posterior Pharynx: erythema 06/11/2017 None Full Exam - ENT Respiratory inspection Overall: no retractions 06/11/2017 None Full Exam - ENT Respiratory inspection Overall: normal rate None Full Exam - ENT Respiratory auscultation Overall: breath sounds clear bilaterally 06/11/2017 None Full Exam - ENT Cardiovascular auscultation of heart Rate: normal rate 06/11/2017 None Full Exam - ENT Cardiovascular auscultation of heart Rhythm: regular rhythm 06/11/2017 None Full Exam - ENT Lymphatic palpation of lymph nodes Overall: anterior cervical chain benign 06/11/2017 None Full Exam - ENT Lymphatic palpation of lymph nodes Overall: posterior cervical chain benign 06/11/2017 None Full Exam - ENT Neurologic mood and affect Overall: normal mood 06/11/2017 None Full Exam - ENT Neurologic mood and affect Overall: normal affect 06/11/2017 None Full Exam - ENT Neurologic orientation Overall: oriented to person, place and time 06/11/2017 None Full Exam - General 1994 Constitutional general appearance Overall: well developed 03/13/2017 None Full Exam - General 1994 Constitutional general appearance Overall: in no acute distress 03/13/2017 None Full Exam - General 1994 Constitutional general appearance Overall: well nourished 03/13/2017 None Full Exam - General 1994 Eyes conjunctiva /eyelids Overall: conjunctiva clear 03/13/2017 None Full Exam - General 1994 Respiratory auscultation Overall: breath sounds clear bilaterally 03/13/2017 None Full Exam - General 1994 Respiratory respiratory effort/rhythm Overall: no retractions 03/13/2017 None Full Exam - General 1994 Respiratory respiratory effort/rhythm Overall: normal rate 03/13/2017 None Full Exam - General 1994 Cardiovascular auscultation of heart Overall: regular rate 03/13/2017 None Full Exam - General 1994 Cardiovascular auscultation of heart Overall: normal heart sounds 03/13/2017 None Full Exam - General 1994 Cardiovascular auscultation of heart Overall: no murmurs 03/13/2017 None Full Exam - General 1994 Psychiatric orientation/consciousness Overall: oriented to person, place and time 03/13/2017 None Full Exam - General 1994 Ears/Nose/Throat otoscopic exam Overall: tympanic membranes clear 03/13/2017 None Full Exam - General 1994 Ears/Nose/Throat otoscopic exam Overall: external auditory canals clear 03/13/2017 None Full Exam - General 1994 Ears/Nose/Throat oral cavity/pharynx/larynx Overall: oral mucosa clear 03/13/2017 None Full Exam - General 1994 Abdomen abdominal exam Overall: normal bowel sounds 03/13/2017 None Full Exam - General 1994 Abdomen abdominal exam Overall: no tenderness 03/13/2017 None Full Exam - General 1994 Integument inspection of skin Overall: few scattered moles, no gross abnormalities 03/13/2017 None Full Exam - General 1994 Musculoskeletal gait and station Overall: normal gait 03/13/2017 None Full Exam - General 1994 Musculoskeletal gait and station Overall: normal station 03/13/2017 None Full Exam - General 1994 Lymphatic neck nodes Overall: anterior cervical chain benign 03/13/2017 None Full Exam - General 1994 Lymphatic neck nodes Overall: posterior cervical chain benign 03/13/2017 None Full Exam - Genitourinary/Female Constitutional general appearance Overall: well nourished 01/30/2017 None Full Exam - Genitourinary/Female Constitutional general appearance Overall: well developed 01/30/2017 None Full Exam - Genitourinary/Female Constitutional general appearance Overall: in no acute distress 01/30/2017 None Full Exam - Genitourinary/Female Eyes conjunctiva/eyelids Overall: conjunctiva clear 01/30/2017 None Full Exam - Genitourinary/Female Eyes pupils and irises Overall: pupils equal, round, reactive to light and accomodation 01/30/2017 None Full Exam - Genitourinary/Female Ears/Nose/Throat otoscopic exam Overall: external auditory canals clear 01/30/2017 None Full Exam - Genitourinary/Female Ears/Nose/Throat otoscopic exam Overall: tympanic membranes clear 01/30/2017 None Full Exam - Genitourinary/Female Ears/Nose/Throat oral cavity/pharynx/larynx Overall: oral mucosa clear 01/30/2017 None Full Exam - Genitourinary/Female Respiratory auscultation Overall: breath sounds clear bilaterally 01/30/2017 None Full Exam - Genitourinary/Female Respiratory respiratory effort/rhythm Overall: no retractions 01/30/2017 None Full Exam - Genitourinary/Female Respiratory respiratory effort/rhythm Overall: normal rate 01/30/2017 None Full Exam - Genitourinary/Female Cardiovascular auscultation of heart Overall: regular rate 01/30/2017 None Full Exam - Genitourinary/Female Cardiovascular auscultation of heart Overall: normal heart sounds 01/30/2017 None Full Exam - Genitourinary/Female Cardiovascular examination of vasculature Overall: no clubbing, cyanosis, edema 01/30/2017 None Full Exam - Genitourinary/Female Abdomen abdominal exam Overall: non tender, non distended 01/30/2017 None Full Exam - Genitourinary/Female Abdomen abdominal exam Overall: normal bowel sounds 01/30/2017 None Full Exam - Genitourinary/Female Abdomen abdominal exam Overall: no mass lesions 01/30/2017 None Full Exam - Genitourinary/Female Lymphatic inspection and palpation of nodes Overall: anterior cervical chain benign 01/30/2017 None Full Exam - Genitourinary/Female Lymphatic inspection and palpation of nodes Overall: posterior cervical chain benign 01/30/2017 None Full Exam - Genitourinary/Female Musculoskeletal head and neck Overall: head atraumatic 01/30/2017 None Full Exam - Genitourinary/Female Musculoskeletal gait and station Overall: normal gait 01/30/2017 None Full Exam - Genitourinary/Female Musculoskeletal gait and station Overall: normal station 01/30/2017 None Full Exam - Genitourinary/Female Integument inspection and palpation of skin Overall: no rash, lesions 01/30/2017 None Full Exam - Genitourinary/Female Neurologic mood and affect Overall: normal mood 01/30/2017 None Full Exam - Genitourinary/Female Neurologic mood and affect Overall: normal affect 01/30/2017 None Full Exam - Genitourinary/Female Psychiatric orientation/consciousness Overall: oriented to person, place and time 01/30/2017 None Full Exam - ENT Constitutional general appearance Overall: well nourished 03/08/2016 None Full Exam - ENT Constitutional general appearance Overall: well developed 03/08/2016 None Full Exam - ENT Constitutional general appearance Overall: in no acute distress 03/08/2016 None Full Exam - ENT Neurologic orientation Overall: oriented to person, place and time 03/08/2016 None Full Exam - ENT Lymphatic palpation of lymph nodes Overall: anterior cervical chain benign 03/08/2016 None Full Exam - ENT Lymphatic palpation of lymph nodes Overall: posterior cervical chain benign 03/08/2016 None Full Exam - ENT Cardiovascular auscultation of heart Overall: regular rate 03/08/2016 None Full Exam - ENT Cardiovascular auscultation of heart Overall: normal heart sounds 03/08/2016 None Full Exam - ENT Respiratory auscultation Overall: breath sounds clear bilaterally 03/08/2016 None Full Exam - ENT Respiratory inspection Overall: normal rate None Full Exam - ENT Respiratory inspection Overall: no retractions 03/08/2016 None Full Exam - ENT Face and Head palpation Left maxillary sinus: tender 03/08/2016 None Full Exam - ENT Face and Head palpation Right maxillary sinus: tender 03/08/2016 None Full Exam - ENT Ears/Nose/Throat otoscopic exam Overall: external auditory canals normal 03/08/2016 None Full Exam - ENT Ears/Nose/Throat otoscopic exam Overall: tympanic membranes normal 03/08/2016 None Full Exam - ENT Ears/Nose/Throat oropharynx Overall: oral mucosa clear 03/08/2016 None Full Exam - Genitourinary/Female Constitutional general appearance Overall: well nourished 03/05/2016 None Full Exam - Genitourinary/Female Constitutional general appearance Overall: well developed 03/05/2016 None Full Exam - Genitourinary/Female Constitutional general appearance Overall: in no acute distress 03/05/2016 None Full Exam - Genitourinary/Female Eyes conjunctiva/eyelids Overall: conjunctiva clear 03/05/2016 None Full Exam - Genitourinary/Female Eyes pupils and irises Overall: pupils equal, round, reactive to light and accomodation 03/05/2016 None Full Exam - Genitourinary/Female Ears/Nose/Throat otoscopic exam Overall: external auditory canals clear 03/05/2016 None Full Exam - Genitourinary/Female Ears/Nose/Throat otoscopic exam Overall: tympanic membranes clear 03/05/2016 None Full Exam - Genitourinary/Female Ears/Nose/Throat oral cavity/pharynx/larynx Overall: oral mucosa clear 03/05/2016 None Full Exam - Genitourinary/Female Respiratory auscultation Overall: breath sounds clear bilaterally 03/05/2016 None Full Exam - Genitourinary/Female Respiratory respiratory effort/rhythm Overall: no retractions 03/05/2016 None Full Exam - Genitourinary/Female Respiratory respiratory effort/rhythm Overall: normal rate 03/05/2016 None Full Exam - Genitourinary/Female Cardiovascular auscultation of heart Overall: normal heart sounds 03/05/2016 None Full Exam - Genitourinary/Female Cardiovascular examination of vasculature Overall: no clubbing, cyanosis, edema 03/05/2016 None Full Exam - Genitourinary/Female Abdomen abdominal exam Overall: non tender, non distended 03/05/2016 None Full Exam - Genitourinary/Female Abdomen abdominal exam Overall: normal bowel sounds 03/05/2016 None Full Exam - Genitourinary/Female Abdomen abdominal exam Overall: no mass lesions 03/05/2016 None Full Exam - Genitourinary/Female Lymphatic inspection and palpation of nodes Overall: anterior cervical chain benign 03/05/2016 None Full Exam - Genitourinary/Female Lymphatic inspection and palpation of nodes Overall: posterior cervical chain benign 03/05/2016 None Full Exam - Genitourinary/Female Musculoskeletal head and neck Overall: head atraumatic 03/05/2016 None Full Exam - Genitourinary/Female Musculoskeletal gait and station Overall: normal gait 03/05/2016 None Full Exam - Genitourinary/Female Musculoskeletal gait and station Overall: normal station 03/05/2016 None Full Exam - Genitourinary/Female Integument inspection and palpation of skin Overall: no rash, lesions 03/05/2016 None Full Exam - Genitourinary/Female Neurologic mood and affect Overall: normal mood 03/05/2016 None Full Exam - Genitourinary/Female Neurologic mood and affect Overall: normal affect 03/05/2016 None Full Exam - Genitourinary/Female Psychiatric orientation/consciousness Overall: oriented to person, place and time 03/05/2016 None Full Exam - Genitourinary/Female Cardiovascular auscultation of heart Rate: tachycardia 03/05/2016 None Full Exam - General 1994 Constitutional general appearance Overall: well developed 01/26/2016 None Full Exam - General 1994 Constitutional general appearance Overall: in no acute distress 01/26/2016 None Full Exam - General 1994 Constitutional general appearance Overall: well nourished 01/26/2016 None Full Exam - General 1994 Psychiatric orientation/consciousness Overall: oriented to person, place and time 01/26/2016 None Full Exam - General 1994 Respiratory auscultation Overall: breath sounds clear bilaterally 01/26/2016 None Full Exam - General 1994 Respiratory respiratory effort/rhythm Overall: normal rate 01/26/2016 None Full Exam - General 1994 Respiratory respiratory effort/rhythm Overall: no retractions 01/26/2016 None Full Exam - General 1994 Cardiovascular auscultation of heart Overall: regular rate 01/26/2016 None Full Exam - General 1994 Cardiovascular auscultation of heart Overall: normal heart sounds 01/26/2016 None Full Exam - General 1994 Cardiovascular auscultation of heart Overall: no murmurs 01/26/2016 None Full Exam - General 1994 Constitutional general appearance Overall: well developed 12/22/2015 None Full Exam - General 1994 Constitutional general appearance Overall: in no acute distress 12/22/2015 None Full Exam - General 1994 Constitutional general appearance Overall: well nourished 12/22/2015 None Full Exam - General 1994 Eyes conjunctiva /eyelids Overall: conjunctiva clear 12/22/2015 None Full Exam - General 1994 Respiratory auscultation Overall: breath sounds clear bilaterally 12/22/2015 None Full Exam - General 1994 Respiratory respiratory effort/rhythm Overall: no retractions 12/22/2015 None Full Exam - General 1994 Respiratory respiratory effort/rhythm Overall: normal rate 12/22/2015 None Full Exam - General 1994 Cardiovascular auscultation of heart Overall: regular rate 12/22/2015 None Full Exam - General 1994 Cardiovascular auscultation of heart Overall: normal heart sounds 12/22/2015 None Full Exam - General 1994 Cardiovascular auscultation of heart Overall: no murmurs 12/22/2015 None Full Exam - General 1994 Psychiatric orientation/consciousness Overall: oriented to person, place and time 12/22/2015 None Full Exam - General 1994 Constitutional general appearance Overall: well developed 11/14/2015 None Full Exam - General 1994 Constitutional general appearance Overall: in no acute distress 11/14/2015 None Full Exam - General 1994 Constitutional general appearance Overall: well nourished 11/14/2015 None Full Exam - General 1994 Psychiatric orientation/consciousness Overall: oriented to person, place and time 11/14/2015 None Full Exam - General 1994 Respiratory auscultation Overall: breath sounds clear bilaterally 11/14/2015 None Full Exam - General 1994 Respiratory respiratory effort/rhythm Overall: no retractions 11/14/2015 None Full Exam - General 1994 Respiratory respiratory effort/rhythm Overall: normal rate 11/14/2015 None Full Exam - General 1994 Cardiovascular auscultation of heart Overall: regular rate 11/14/2015 None Full Exam - General 1994 Cardiovascular auscultation of heart Overall: normal heart sounds 11/14/2015 None Full Exam - General 1994 Cardiovascular auscultation of heart Overall: no murmurs 11/14/2015 None Full Exam - General 1994 Eyes conjunctiva /eyelids Overall: conjunctiva clear 11/14/2015 None Full Exam - Genitourinary/Female Constitutional general appearance Overall: well nourished 10/17/2015 None Full Exam - Genitourinary/Female Constitutional general appearance Overall: well developed 10/17/2015 None Full Exam - Genitourinary/Female Constitutional general appearance Overall: in no acute distress 10/17/2015 None Full Exam - Genitourinary/Female Eyes conjunctiva/eyelids Overall: conjunctiva clear 10/17/2015 None Full Exam - Genitourinary/Female Eyes pupils and irises Overall: pupils equal, round, reactive to light and accomodation 10/17/2015 None Full Exam - Genitourinary/Female Ears/Nose/Throat otoscopic exam Overall: external auditory canals clear 10/17/2015 None Full Exam - Genitourinary/Female Ears/Nose/Throat otoscopic exam Overall: tympanic membranes clear 10/17/2015 None Full Exam - Genitourinary/Female Ears/Nose/Throat oral cavity/pharynx/larynx Overall: oral mucosa clear 10/17/2015 None Full Exam - Genitourinary/Female Respiratory auscultation Overall: breath sounds clear bilaterally 10/17/2015 None Full Exam - Genitourinary/Female Respiratory respiratory effort/rhythm Overall: no retractions 10/17/2015 None Full Exam - Genitourinary/Female Respiratory respiratory effort/rhythm Overall: normal rate 10/17/2015 None Full Exam - Genitourinary/Female Cardiovascular auscultation of heart Overall: regular rate 10/17/2015 None Full Exam - Genitourinary/Female Cardiovascular auscultation of heart Overall: normal heart sounds 10/17/2015 None Full Exam - Genitourinary/Female Cardiovascular examination of vasculature Overall: no clubbing, cyanosis, edema 10/17/2015 None Full Exam - Genitourinary/Female Abdomen abdominal exam Overall: non tender, non distended 10/17/2015 None Full Exam - Genitourinary/Female Abdomen abdominal exam Overall: normal bowel sounds 10/17/2015 None Full Exam - Genitourinary/Female Abdomen abdominal exam Overall: no mass lesions 10/17/2015 None Full Exam - Genitourinary/Female Lymphatic inspection and palpation of nodes Overall: anterior cervical chain benign 10/17/2015 None Full Exam - Genitourinary/Female Lymphatic inspection and palpation of nodes Overall: posterior cervical chain benign 10/17/2015 None Full Exam - Genitourinary/Female Musculoskeletal head and neck Overall: head atraumatic 10/17/2015 None Full Exam - Genitourinary/Female Musculoskeletal gait and station Overall: normal gait 10/17/2015 None Full Exam - Genitourinary/Female Musculoskeletal gait and station Overall: normal station 10/17/2015 None Full Exam - Genitourinary/Female Integument inspection and palpation of skin Overall: no rash, lesions 10/17/2015 None Full Exam - Genitourinary/Female Neurologic mood and affect Overall: normal mood 10/17/2015 None Full Exam - Genitourinary/Female Neurologic mood and affect Overall: normal affect 10/17/2015 None Full Exam - Genitourinary/Female Psychiatric orientation/consciousness Overall: oriented to person, place and time 10/17/2015 None Full Exam - ENT Constitutional general appearance Overall: well nourished 10/05/2015 None Full Exam - ENT Constitutional general appearance Overall: well developed 10/05/2015 None Full Exam - ENT Constitutional general appearance Overall: in no acute distress 10/05/2015 None Full Exam - ENT Neurologic orientation Overall: oriented to person, place and time 10/05/2015 None Full Exam - ENT Lymphatic palpation of lymph nodes Overall: anterior cervical chain benign 10/05/2015 None Full Exam - ENT Lymphatic palpation of lymph nodes Overall: posterior cervical chain benign 10/05/2015 None Full Exam - ENT Ears/Nose/Throat otoscopic exam Overall: external auditory canals normal 10/05/2015 None Full Exam - ENT Ears/Nose/Throat otoscopic exam Overall: tympanic membranes normal 10/05/2015 None Full Exam - ENT Ears/Nose/Throat oropharynx Overall: oral mucosa clear 10/05/2015 None Full Exam - ENT Cardiovascular auscultation of heart Overall: regular rate 10/05/2015 None Full Exam - ENT Cardiovascular auscultation of heart Overall: normal heart sounds 10/05/2015 None Full Exam - ENT Cardiovascular auscultation of heart Overall: no murmurs 10/05/2015 None Full Exam - ENT Respiratory auscultation Diffuse: expiratory wheezes 10/05/2015 None Full Exam - ENT Respiratory auscultation Diffuse: rhonchi 10/04 None Full Exam - Genitourinary/Female Constitutional general appearance Overall: well nourished 12/14/2014 None Full Exam - Genitourinary/Female Constitutional general appearance Overall: well developed 12/14/2014 None Full Exam - Genitourinary/Female Constitutional general appearance Overall: in no acute distress 12/14/2014 None Full Exam - Genitourinary/Female Eyes conjunctiva/eyelids Overall: conjunctiva clear 12/14/2014 None Full Exam - Genitourinary/Female Eyes pupils and irises Overall: pupils equal, round, reactive to light and accomodation 12/14/2014 None Full Exam - Genitourinary/Female Ears/Nose/Throat otoscopic exam Overall: external auditory canals clear 12/14/2014 None Full Exam - Genitourinary/Female Ears/Nose/Throat otoscopic exam Overall: tympanic membranes clear 12/14/2014 None Full Exam - Genitourinary/Female Ears/Nose/Throat oral cavity/pharynx/larynx Overall: oral mucosa clear 12/14/2014 None Full Exam - Genitourinary/Female Respiratory auscultation Overall: breath sounds clear bilaterally 12/14/2014 None Full Exam - Genitourinary/Female Respiratory respiratory effort/rhythm Overall: no retractions 12/14/2014 None Full Exam - Genitourinary/Female Respiratory respiratory effort/rhythm Overall: normal rate 12/14/2014 None Full Exam - Genitourinary/Female Cardiovascular auscultation of heart Overall: regular rate 12/14/2014 None Full Exam - Genitourinary/Female Cardiovascular auscultation of heart Overall: normal heart sounds 12/14/2014 None Full Exam - Genitourinary/Female Cardiovascular examination of vasculature Overall: no clubbing, cyanosis, edema 12/14/2014 None Full Exam - Genitourinary/Female Abdomen abdominal exam Overall: non tender, non distended 12/14/2014 None Full Exam - Genitourinary/Female Abdomen abdominal exam Overall: normal bowel sounds 12/14/2014 None Full Exam - Genitourinary/Female Abdomen abdominal exam Overall: no mass lesions 12/14/2014 None Full Exam - Genitourinary/Female Lymphatic inspection and palpation of nodes Overall: anterior cervical chain benign 12/14/2014 None Full Exam - Genitourinary/Female Lymphatic inspection and palpation of nodes Overall: posterior cervical chain benign 12/14/2014 None Full Exam - Genitourinary/Female Musculoskeletal head and neck Overall: head atraumatic 12/14/2014 None Full Exam - Genitourinary/Female Musculoskeletal gait and station Overall: normal gait 12/14/2014 None Full Exam - Genitourinary/Female Musculoskeletal gait and station Overall: normal station 12/14/2014 None Full Exam - Genitourinary/Female Integument inspection and palpation of skin Overall: no rash, lesions 12/14/2014 None Full Exam - Genitourinary/Female Neurologic mood and affect Overall: normal mood 12/14/2014 None Full Exam - Genitourinary/Female Neurologic mood and affect Overall: normal affect 12/14/2014 None Full Exam - Genitourinary/Female Psychiatric orientation/consciousness Overall: oriented to person, place and time 12/14/2014 None Procedures Procedure Codes Date TRIAMCINOLONE ACET INJ NOS CPT-4: J3301 07/20/2018 THER/PROPH/DIAG INJ SC/IM CPT-4: 36721 07/20/2018 TRIAMCINOLONE ACET INJ NOS CPT-4: J3301 07/17/2018 Vital Signs Date Vital 07/28/2018 Blood Pressure 1: 120/80 Code : 8480-6 BMI: 27.7 Code : 33410-9 Heart Rate 1 : 73 bpm Height: 5'7" SpO2: 99% Weight: 177 lbs 07/20/2018 Blood Pressure 1: 120/84 Code : 8480-6 Heart Rate 1: 91 bpm Height: 5'7" SpO2: 98% Temperature: 36.7 (C) / 98.1 (F) Weight: 07/17/2018 Blood Pressure 1: 112/78 Code : 8480-6 BMI: 27.9 Code : 82486-8 Heart Rate 1 : 60 bpm Height: 5'7" SpO2: 97% Temperature: 36.1 (C) / 97.0 (F) Weight: 178 lbs 06/11/2017 Blood Pressure 1: 126/74 Code : 8480-6 BMI: 27.1 Code : 44750-2 Heart Rate 1 : 77 bpm Height: 5'7" SpO2: 96% Weight: 173 lbs 03/13/2017 Blood Pressure 1: 118/64 Code : 8480-6 BMI: 24.4 Code : 50628-8 Heart Rate 1 : 88 bpm Height: 5'7" SpO2: 97% Weight: 156 lbs 01/30/2017 Blood Pressure 1: 112/72 Code : 8480-6 BMI: 25.5 Code : 88904-0 Heart Rate 1 : 71 bpm Height: 5'7" SpO2: 98% Weight: 163 lbs 03/08/2016 Blood Pressure 1: 104/62 Code : 8480-6 BMI: 25.8 Code : 22013-3 Heart Rate 1 : 95 bpm Height: 5'7" SpO2: 98% Weight: 165 lbs 03/05/2016 Blood Pressure 1: 144/98 Code : 8480-6 Heart Rate 1: 111 bpm Height: SpO2: 99% Temperature: 36.6 (C) / 97.8 (F) Weight: 01/26/2016 Blood Pressure 1: 128/82 Code : 8480-6 BMI: 26.5 Code : 11041-8 Heart Rate 1 : 89 bpm Height: 5'7" SpO2: 99% Weight: 169 lbs 12/22/2015 Blood Pressure 1: 118/78 Code : 8480-6 BMI: 26.5 Code : 26591-8 Heart Rate 1 : 87 bpm Height: 5'7" SpO2: 97% Weight: 169 lbs 11/14/2015 Blood Pressure 1: 112/70 Code : 8480-6 BMI: 26.9 Code : 18852-9 Heart Rate 1 : 91 bpm Height: 5'7" SpO2: 98% Weight: 172 lbs 10/17/2015 Blood Pressure 1: 110/70 Code : 8480-6 BMI: 28.2 Code : 11910-1 Heart Rate 1 : 77 bpm Height: 5'7" SpO2: 97% Weight: 180 lbs 10/05/2015 Blood Pressure 1: 128/80 Code : 8480-6 BMI: 28.0 Code : 65747-0 Heart Rate 1 : 88 bpm Height: 5'7" SpO2: 94% Weight: 179 lbs 12/14/2014 Blood Pressure 1: 130/92 Code : 8480-6 BMI: 28.3 Code : 98990-9 Heart Rate 1 : 90 bpm Height: 5'7" SpO2: 96% Weight: 181 lbs Functional Status No Functional Status data History of Present Illness Symptom Name Status Result Effective Date Notes Location left ear 02/2019 None Quality acute 2018 None Onset and Resolution ongoing 07/28/2018 None Triggers no known triggers 07/28/2018 None Onset of Symptom 1.5+ weeks ago 07/28/2018 None Onset and Resolution sudden in onset 07/28/2018 None Frequency of Episodes daily 07/28/2018 None Quality acute 2018 None Onset and Resolution sudden in onset 07/28/2018 None Onset and Resolution ongoing 07/28/2018 None Onset of Symptom 1.5+ weeks ago 07/28/2018 None Triggers no known associated factors 07/28/2018 None Pertinent Findings cough 07/28/2018 None Pertinent Findings Denies fever 07/28/2018 None Frequency of Episodes daily 07/28/2018 None Location left ear None Quality acute 2017 None Quality worsening None Onset and Resolution ongoing 07/20/2018 None Location in the throat 07/17/2018 None Quality dry 2017 None Onset of Symptom 1 days ago 07/17/2018 None Pertinent Findings Denies chest discomfort 07/17/2018 None Pertinent Findings Denies dyspnea 07/17/2018 None Pertinent Findings Denies fever 07/17/2018 None Pertinent Findings facial pain 07/17/2018 None Onset and Resolution sudden in onset 07/17/2018 None Onset of Symptom 1 days ago 07/17/2018 None Pertinent Findings cough 07/17/2018 None Pertinent Findings decreased energy level 07/17/2018 None Pertinent Findings facial pain 07/17/2018 None Pertinent Findings Denies fever 07/17/2018 None sinus congestion Location frontal sinuses 06/11/2017 None sinus congestion Quality constant 06/11/2017 None sinus congestion Quality fullness 06/11/2017 None sinus congestion Quality pressure 06/11/2017 None sinus congestion Onset and Resolution sudden in onset 06/11/2017 None sinus congestion Onset of Symptom 1 days ago 06/11/2017 None sinus congestion Frequency of Episodes daily 06/11/2017 None sore throat Location diffusely 06/11/2017 None sore throat Quality constant 06/11/2017 None sore throat Quality aching 06/11/2017 None sore throat Quality scratchy 06/11/2017 None sore throat Onset and Resolution sudden in onset 06/11/2017 None sore throat Onset of Symptom 1 days ago 06/11/2017 None Hospital Follow Up _ gastrointestinal complaints 03/13/2017 None Hospital Follow Up Quality acute illness 03/13/2017 None Hospital Follow Up Onset of Symptom 10 days ago 03/13/2017 None Hospital Follow Up Onset and Resolution resolved 03/13/2017 None Hospital Follow Up Severity moderate 03/13/2017 None Hospital Follow Up Significant Medical Conditions acute illness 03/13/2017 None Hospital Follow Up Alleviating Factors medication 03/13/2017 None Hospital Follow Up Alleviating Factors rest 03/13/2017 None Hospital Follow Up Pertinent Findings Denies pain 03/13/2017 None Hospital Follow Up Pertinent Findings fever 03/13/2017 None hypertension Onset and Resolution ongoing 01/30/2017 None hypertension Onset of Symptom during adulthood 01/30/2017 None hypertension Pertinent Findings Denies dizziness 01/30/2017 None hypertension Pertinent Findings Denies dyspnea 01/30/2017 None hypertension Pertinent Findings Denies edema 01/30/2017 None hypertension Blood Pressure Values not checking blood pressure at home 01/30/2017 None hypertension Severity not consistently severe symptoms, the symptoms fluctuate from no symptoms to anxiety and headaches 01/30/2017 None hypertension Frequency of Episodes unchanged 01/30/2017 None hypertension Triggers no known associated factors 01/30/2017 None cough Location in the lung 03/08/2016 None cough Quality constant 03/08/2016 None cough Quality hacking 03/08/2016 None cough Quality productive 03/08/2016 None cough Onset and Resolution sudden in onset 03/08/2016 None cough Onset of Symptom 5 days ago 03/08/2016 None cough Frequency of Episodes daily 03/08/2016 None cough Pertinent Findings chest discomfort 03/08/2016 None cough Pertinent Findings nasal congestion 03/08/2016 None sinus congestion Onset and Resolution sudden in onset 03/08/2016 None sinus congestion Onset of Symptom 5 days ago 03/08/2016 None sinus congestion Pertinent Findings cough 03/08/2016 None sinus congestion Pertinent Findings hoarseness 03/08/2016 None sinus congestion Location on both sides 03/08/2016 None sinus congestion Quality constant 03/08/2016 None sinus congestion Quality fullness 03/08/2016 None sinus congestion Quality pressure 03/08/2016 None palpitations Quality rapid and regular beats 03/05/2016 None palpitations Limitation on Activities moderately limits activities 03/05/2016 None palpitations Frequency of Episodes hourly 03/05/2016 None palpitations Onset of Symptom .5 hours ago 03/05/2016 None palpitations Onset and Resolution sudden in onset 03/05/2016 None palpitations Pertinent Findings dyspnea 03/05/2016 None palpitations Pertinent Findings nausea 03/05/2016 None palpitations Pertinent Findings tachycardia 03/05/2016 None palpitations Length of Episodes _ minutes 03/05/2016 None palpitations Triggers no known associated factors 03/05/2016 None Weight follow up Location diffusely 01/26/2016 None Weight follow up Pertinent Findings Denies fever 01/26/2016 None Weight follow up Onset and Resolution ongoing 01/26/2016 None Weight follow up Severity mild 01/26/2016 None Weight follow up Mechanism of injury unknown 01/26/2016 None Weight follow up Alleviating Factors medication 01/26/2016 None Weight follow up Location diffusely 12/22/2015 None Weight follow up Quality improving 12/22/2015 None Weight follow up Onset of Symptom 30 days ago 12/22/2015 None Weight follow up Exacerbating Factors medication 12/22/2015 None Weight follow up Pertinent Findings Denies fever 12/22/2015 None Weight follow up Onset and Resolution ongoing 12/22/2015 None Weight follow up Severity mild 12/22/2015 None Weight follow up Alleviating Factors medication 12/22/2015 None Weight follow up Quality intermittent 11/14/2015 None Weight follow up Pertinent Findings Denies fever 11/14/2015 None Weight follow up Onset and Resolution ongoing 11/14/2015 None Weight follow up Severity mild 11/14/2015 None Weight follow up Alleviating Factors medication 11/14/2015 None Hospital Follow Up _ Other: cold 10/17/2015 None Hospital Follow Up Quality constant 10/17/2015 None Hospital Follow Up Onset of Symptom 5 days ago 10/17/2015 None cough Location in the lung 10/17/2015 None cough Quality blood-tinged 10/17/2015 None cough Limitation on Activities does not limit activities 10/17/2015 None cough Frequency of Episodes increasing 10/17/2015 None cough Triggers no known associated factors 10/17/2015 None cough Pertinent Findings chest discomfort 10/17/2015 None cough Pertinent Findings dyspnea 10/17/2015 None Hospital Follow Up Onset and Resolution resolved 10/17/2015 None cough Onset and Resolution resolved 10/17/2015 None Hospital Follow Up _ Other: cold 10/05/2015 None Hospital Follow Up Quality constant 10/05/2015 None Hospital Follow Up Onset of Symptom 5 days ago 10/05/2015 None cough Location in the lung 10/05/2015 None cough Quality blood-tinged 10/05/2015 None cough Onset and Resolution ongoing 10/05/2015 None cough Limitation on Activities does not limit activities 10/05/2015 None cough Frequency of Episodes increasing 10/05/2015 None cough Triggers no known associated factors 10/05/2015 None cough Pertinent Findings chest discomfort 10/05/2015 None cough Pertinent Findings dyspnea 10/05/2015 None Advance Directives No Advance Directive data Encounters Encounter Performer Location Codes Date ([id number]) 22110 EST. PATIENT, LEVEL III Diagnosis: Otalgia, left ear[ICD10: H92.02] Diagnosis: Other allergic rhinitis[ICD10: J30.89] Diagnosis: Other specified disorders of Eustachian tube, left ear[ICD10: H69.82 ] [facility] CPT-4: 18437 2018 [id number]) 46443 EST. PATIENT, LEVEL III Diagnosis: Acute upper respiratory infection, unspecified[ICD10: J06.9] [facility] CPT-4: 19432 07/17/2018 19218 EST. PATIENT, LEVEL III Diagnosis: Acute laryngopharyngitis[ICD10: J06.0] Diagnosis: Other acute sinusitis[ICD10: J01.80] Diagnosis: Other allergic rhinitis[ICD10: J30.89] Nia Ramirez MD, [facility] CPT-4: 40653 06/11/2017 ([id number]) 46008 EST. PATIENT, LEVEL III Diagnosis: Viral intestinal infection, unspecified[ICD10: A08.4] Diagnosis: Essential (primary) hypertension[ICD10: I10] Diagnosis: Encounter for follow-up examination after completed treatment for conditions other than malignant neoplasm[ICD10: Z09] Francoise Ramirez MD, [facility] CPT-4: 15091 03/13/2017 ([id number]) PREV VISIT EST AGE 40-64 Diagnosis: Encounter for general adult medical examination without abnormal findings[ICD10: Z00.00] Francoise Ramirez MD, [facility] CPT-4: 65070 01/30/2017 ([id number]) 49533 EST. PATIENT, LEVEL III Diagnosis: Cough[ICD10: R05] Diagnosis: Acute recurrent maxillary sinusitis[ICD10: J01.01] Francoise Ramirez MD, [facility] CPT-4: 21466 03/08/2016 ([id number]) 32839 EST. PATIENT, LEVEL IV Diagnosis: Tachycardia, unspecified[ICD10: R00.0] Diagnosis: Dizziness and giddiness[ICD10: R42] Diagnosis: Elevated blood-pressure reading, without diagnosis of hypertension[ ICD10: R03.0] Francoise Ramirez MD, [facility] CPT-4: 59395 03/05/2016 ([id number]) Miscellaneous no charge Diagnosis: Overweight[ICD10: E66.3] Francoise Ramirez MD, [facility] CPT-4: 19278 01/26/2016 ([id number]) Miscellaneous no charge Diagnosis: Overweight[ICD10: E66.3] Francoise Ramirez MD [facility] CPT-4: 32859 12/22/2015 ([id number]) Miscellaneous no charge Diagnosis: Overweight[ICD10: E66.3] Francoise Ramirez MD, [facility] CPT-4: 06344 11/14/2015 ([id number]) PREV VISIT EST AGE 40-64 Diagnosis: Encounter for general adult medical examination without abnormal findings[ICD10: Z00.00] Diagnosis: Body mass index (BMI) 28.0-28.9, adult[ICD10: Z68.28] Francoise Ramirez MD, [facility] CPT-4: 78769 10/17/2015 ([id number]) 52521 EST. PATIENT, LEVEL III Diagnosis: Cough[ICD10: R05] Diagnosis: Acute bronchitis, unspecified[ICD10: J20.9] Francoise Ramirez MD, [facility] CPT-4: 40322 10/05/2015 ([id number]) OFFICE VISIT, NEW - LEVEL 4 Diagnosis: PREVENTIVE PHYSICAL EXAM[ICD9: V70.0] Chanda Ramirez MD, [facility] CPT-4: 24590 12/14/2014 Plan of Care Planned Activity Notes Codes Status Date Referral: [id number] Patient informed. Referral info faxed. Completed 08/05/2018 Visit Plan: Allergies - left earache - recommended pt to use allergy medication as prescribed. Pt has been counseled as to the appropriate use of the medication. Pt to call if allergy symptoms are not controlled with the medication. If using nasal spray, instructions as follows: Nasal spray- use twice daily, one spray per nostril twice daily, after 30 minutes, rinse out nose with saline spray.. Use opposite hand per nostril to spray in the nasal steroid allergy spray. 07/28/2018 Appointment: Francoise Perry WPtel: [address] [place] [address] (15 min) Moderate 07/28/2018 Patient Education: Patient Medication Summary Completed 07/28/2018 Care Plan: Referral Order SNOMED-CT : [id number] Pending 07/28/2018 Visit Plan: EQM-dzegwau-jrltwhc injection today in the office 07/20/2018 Appointment: Francoise Perry WPtel: [address] [place] [address] (15 min) Moderate 07/20/2018 Patient Education: Patient Medication Summary Completed 07/20/2018 Visit Plan: URI - Pt advised to increase fluids, vitamin C. Discussed natural and expected course of this diagnosis and need to alert me if symptoms do not follow expected course, or if any worse. RX sent to patient' s pharmacy. 07/17/2018 Appointment: Francoise Perry WPtel: [phone] [phone] [place] (15 min) Moderate 07/17/2018 Patient Education: Patient Medication Summary Completed 07/17/2018 Appointment[facility]el[facility] (30 min) Complex 07/09/2017 Visit Plan: URI - Pt advised to increase fluids, vitamin C. Discussed natural and expected course of this diagnosis and need to alert me if symptoms do not follow expected course, or if any worse. RX sent to patient' s pharmacy. Sinusitis - Pt has acute infection - pain in face, maxillary region , Pt informed to use decongestant, RX given to patient, sinus rinses also recommended. Call if symptoms do not show improvement. Allergies - chronic - recommended pt to use allergy medication as prescribed. Pt has been counseled as to the appropriate use of the medication. Pt to call if allergy symptoms are not controlled with the medication. If using nasal spray, instructions as follows: Nasal spray- use twice daily, one spray per nostril twice daily, after 30 minutes, rinse out nose with saline spray.. Use opposite hand per nostril to spray in the nasal steroid allergy spray. 06/11/2017 Appointment: N[facility] Shanks [facility]el[facility] (15 min) Moderate 06/11/2017 Patient Education: Patient Medication Summary Completed 06/11/2017 Visit Plan: Viral enteritis-hospital follow up-symptoms resolved-no further treatment indicated HTN-blood pressure normal after illness resolved-continue to monitor. 03/13/2017 Appointment: Francoise Perry WPtel: [phone] [place] (15 min) Moderate 03/13/2017 Patient Education: Patient Medication Summary Completed 03/13/2017 Patient Education: Hypertension Completed 03/13/2017 Appointment: Francoise Perry WPtel: [phone] [place] (30 min) Complex 03/07/2017 Visit Plan: Well Adult - pt was counseled about diet, exercise, and encouraged to follow a heart healthy diet and increase activity level. The patient was instructed to RTC yearly for well adult exams and PRN for acute illnesses. The pt was also instructed to have yearly labs for check of cholesterol, thyroid, chem panel, CBC, and renal functioning. 01/30/2017 Appointment: Francoise Perry WPtel: [phone] (15 min) Moderate 01/30/2017 Patient Education: Patient Medication Summary Completed 01/30/2017 Patient Education: Obesity Completed 01/30/2017 Patient Education: Patient Medication Summary Completed 01/23/2017 Visit Plan: Sinusitis-cough- Pt has acute infection - pain in face, maxillary region, Pt informed to use decongestant, RX given to patient , sinus rinses also recommended. Call if symptoms do not show improvement. 03/08/2016 Appointment: Francoise Perry WPtel: [phone] (15 min) Moderate 03/08/2016 Patient Education: Patient Medication Summary Completed 03/08/2016 Patient Education: Obesity Completed 03/08/2016 Visit Plan: Elevated Blood Pressure - without diagnosis of hypertension - pt has been instructed to check blood pressure as an outpatient, record blood pressure and heart rate and report to the clinic in two weeks on the findings. Pt advised to cut back on added salt in the diet. Tachycardia- dizziness-patient sent to the hospital for labs and EKG-will start on cardizem- plan to refer to Dr Sanchez if indicated-consider echo as well 03/05/2016 Appointment: Francoise Perry WPtel: [phone] [phone] (15 min) Moderate 03/05/2016 Patient Education: Patient Medication Summary Completed 03/05/2016 Care Plan: COMPLETE CBC AUTOMATED LOINC : 05553-9 Pending 03/05/2016 Visit Plan: Overweight-off phentermine x 1 month-may restart in 1 month-will need weight check in 2 months 01/26/2016 Patient Education: Patient Medication Summary Completed 01/26/2016 Patient Education: Obesity Completed 01/26/2016 Care Plan: BMI Above normal followup SELF-MGMT EDUC & TRAIN 1 PT Pending 2015 Visit Plan: Overweight/obesity- chronic issue with this patient. The pt has been counseled about diet changes, calorie restriction, and need to exercise. Pt will RTC in one month for weight check. 12/22/2015 Patient Education: Patient Medication Summary Completed 12/22/2015 Patient Education: Obesity Completed 12/22/2015 Care Plan: BMI Above normal followup SELF-MGMT EDUC & TRAIN 1 PT Pending 2015 Visit Plan: Overweight/obesity- chronic issue with this patient. The pt has been counseled about diet changes, calorie restriction, and need to exercise. Pt will RTC in one month for weight check. 11/14/2015 Appointment: (15 min) Moderate 11/14/2015 Patient Education: Patient Medication Summary Completed 11/14/2015 Patient Education: Obesity Completed 11/14/2015 Care Plan: BMI Above normal followup SELF-MGMT EDUC & TRAIN 1 PT Pending 2015 Visit Plan: Well Adult - pt was counseled about diet, exercise, and encouraged to follow a heart healthy diet and increase activity level. The patient was instructed to RTC yearly for well adult exams and PRN for acute illnesses. The pt was also instructed to have yearly labs for check of cholesterol, thyroid, chem panel, CBC, and renal functioning. Overweight - chronic issue with this patient. The pt has been counseled about diet changes, calorie restriction, and need to exercise. Pt will RTC in one month for weight check. 10/17/2015 Patient Education: Patient Medication Summary Completed 10/17/2015 Patient Education: Obesity Completed 10/17/2015 Appointment: (30 min) Complex 10/16/2015 Visit Plan: Bronchitis - acute case of bronchitis identified. Pt has been given antibiotics, breathing treatments as appropriate, and pt has been instructed to call if symptoms are not improved, or if symptoms acutely worsen. 10/05/2015 Appointment: (15 min) Moderate 10/05/2015 Patient Education: Patient Medication Summary Completed 10/05/2015 Patient Education: Obesity Completed 10/05/2015 Care Plan: CHEST X-RAY 2VW FRONTAL&LATL LOINC : 34531-0 Ordered 10/05/2015 App[facility]ment: [facility]el[facility] [phone] [facility] (15 min) Moderate 06/12/2015 Visit Plan: Well Adult - pt was counseled about diet, exercise, and encouraged to follow a heart healthy diet and increase activity level. The patient was instructed to RTC yearly for well adult exams and PRN for acute illnesses. The pt was also instructed to have yearly labs for check of cholesterol, thyroid, chem panel, CBC, and renal functioning. 12/14/2014 Patient Education: Patient Medication Summary Completed 12/14/2014 [facility] [facility] App[facility]ment Requested Instructions Comment . Well Adult - pt was counseled about diet, exercise, and encouraged to follow a heart healthy diet and increase activity level. The patient was instructed to RTC yearly for well adult exams and PRN for acute illnesses. The pt was also instructed to have yearly labs for check of cholesterol, thyroid, chem panel, CBC, and renal functioning. Overweight - chronic issue with this patient. The pt has been counseled about diet changes, calorie restriction, and need to exercise. Pt will RTC in one month for weight check. . Overweight-off phentermine x 1 month-may restart in 1 month-will need weight check in 2 months FLONASE VILMA BENADRYL AT BEDTIME . Allergies - left earache - recommended pt to use allergy medication as prescribed. Pt has been counseled as to the appropriate use of the medication. Pt to call if allergy symptoms are not controlled with the medication. If using nasal spray, instructions as follows: Nasal spray- use twice daily, one spray per nostril twice daily, after 30 minutes, rinse out nose with saline spray.. Use opposite hand per nostril to spray in the nasal steroid allergy spray. . Well Adult - pt was counseled about diet, exercise, and encouraged to follow a heart healthy diet and increase activity level. The patient was instructed to RTC yearly for well adult exams and PRN for acute illnesses. The pt was also instructed to have yearly labs for check of cholesterol, thyroid, chem panel, CBC, and renal functioning. . Viral enteritis-hospital follow up-symptoms resolved-no further treatment indicated HTN-blood pressure normal after illness resolved-continue to monitor. . Sinusitis-cough- Pt has acute infection - pain in face, maxillary region, Pt informed to use decongestant, RX given to patient, sinus rinses also recommended. Call if symptoms do not show improvement. . Overweight/obesity- chronic issue with this patient. The pt has been counseled about diet changes, calorie restriction, and need to exercise. Pt will RTC in one month for weight check. . Elevated Blood Pressure - without diagnosis of hypertension - pt has been instructed to check blood pressure as an outpatient, record blood pressure and heart rate and report to the clinic in two weeks on the findings. Pt advised to cut back on added salt in the diet. Jfnlgqncvly-vonkqbuze-vjbrikz sent to the hospital for labs and EKG-will start on cardizem-plan to refer to Dr Sanchez if indicated-consider echo as well . Overweight/obesity- chronic issue with this patient. The pt has been counseled about diet changes, calorie restriction, and need to exercise. Pt will RTC in one month for weight check. CONTINUE FLONASE TWICE DAILY KENALOG INJECTION TODAY START CEFDINIR TODAY START PREDNISONE PILLS TOMORROW . SFQ-cqxlcbh-vvffdnr injection today in the office . URI - Pt advised to increase fluids, vitamin C. Discussed natural and expected course of this diagnosis and need to alert me if symptoms do not follow expected course, or if any worse. RX sent to patient's pharmacy. MUCINEX 1200MG TWICE DAILY CHEST XRAY SYMBICORT 1 TWICE DAILY-SAMPLE PROVIDED CEFDINIR 300MG TWICE DAILY-SENT E[facility]RONIC[facility] TO [facility] . Bronchitis - acute case of bronchitis identified. Pt has been given antibiotics, breathing treatments as appropriate, and pt has been instructed to call if symptoms are not improved, or if symptoms acutely worsen. . Well Adult - pt was counseled about diet, exercise, and encouraged to follow a heart healthy diet and increase activity level. The patient was instructed to RTC yearly for well adult exams and PRN for acute illnesses. The pt was also instructed to have yearly labs for check of cholesterol, thyroid, chem panel, CBC, and renal functioning. Consider Belviq for weight loss . URI - Pt advised to increase fluids, vitamin C. Discussed natural and expected course of this diagnosis and need to alert me if symptoms do not follow expected course, or if any worse. RX sent to patient's pharmacy. Sinusitis - Pt has acute infection - pain in face, maxillary region, Pt informed to use decongestant, RX given to patient, sinus rinses also recommended. Call if symptoms do not show improvement. Allergies - chronic - recommended pt to use allergy medication as prescribed. Pt has been counseled as to the appropriate use of the medication. Pt to call if allergy symptoms are not controlled with the medication. If using nasal spray, instructions as follows: Nasal spray- use twice daily, one spray per nostril twice daily, after 30 minutes, rinse out nose with saline spray.. Use opposite hand per nostril to spray in the nasal steroid allergy spray.
--- OUTSIDE RECORDS SUMMARY | 2018-10-22 09:37 | XMS REPORT | CCD ---
Author Author [facility] Organization [facility] Address [address] [place] [address] Phone Care Team Providers Care Field Service Tech Name Role Phone PP Unavailable CCM Unavailable Summary Purpose Interface Exchange Insurance Providers Payer name Policy type / Coverage type Covered republican ID Effective Begin Date Effective End Date Blue Cross Blue [facility] Blue Cross/Blue Shield [id number] Unknown Family history Father Diagnosis Age At Onset Hypertension Unknown Heart Attack Unknown Social History Social History Element Codes Description Effective Dates Marital status Unknown [place] 07/28/2018 Employment Unknown Currently employed 12/14/[address]: 474398952 Never smoker 12/14/2014 Alcohol history Unknown occasionally drinks alcohol 12/14/2014 Allergies, Adverse Reactions, Alerts Substance Reaction Codes Entered Date Inactivated Date Status * NO KNOWN FOOD ALLERGIES Unknown 12/14/2014 No Inactive Date Active AUGMENTIN RxNorm: 351784 12/14/2014 No Inactive Date Active SULFA(SULFONAMIDE ANTIBIOTICS) [...] Start Date Stop Date Status Fill Instructions Vilma Allergy 180 mg tablet RxNorm: 316642 1 Tablet(s) PO daily 07/28/2018 08/26/2018 Active Kenalog 40 mg/mL suspension for injection RxNorm: 0282640 1.5 Milliliter(s) Inj 07/20/2018 07/20/2018 Inactive prednisone 20 mg tablet RxNorm: 136776 1 Tablet(s) PO BID 07/2007/24/2018 Inactive morning and noon cefdinir 300 mg capsule RxNorm: 823648 1 Capsule(s) PO BID 07/26/2018 Inactive Zithromax Z-Davis 250 mg tablet RxNorm: 898986 1 Tablet(s) PO UD 07/17/2018 07/21/2018 Inactive Kenalog 40 mg/mL suspension for injection RxNorm: 2821406 Milliliter(s) Inj 07/17/2018 07/17/2018 Inactive Flonase Allergy Relief 50 mcg/actuation nasal spray, suspension RxNorm: 7110542 USE 1 SPRAY(S) IN EACH NOSTRIL TWICE DAILY 04/29/2018 No Stop Date Active Flonase Allergy Relief 50 mcg/actuation nasal spray, suspension RxNorm: 8984043 USE ONE SPRAY(S) IN EACH NOSTRIL TWICE DAILY 11/19/2017 04/28/2018 Inactive Zithromax Z-Davis 250 mg tablet RxNorm: 258531 1 Tablet(s) PO UD 09/15/2017 09/19/2017 Inactive Flonase Allergy Relief 50 mcg/actuation nasal spray, suspension RxNorm: 5699016 1 [place] NASAL BID 06/11/20172016 Inactive Zithromax Z-Davis 250 mg tablet RxNorm: 493647 1 Tablet(s) PO UD 06/11/2017 06/15/2017 Inactive Zithromax Z-Davis 250 mg tablet RxNorm: 490210 1 Tablet(s) PO UD 03/08/2016 03/12/2016 Inactive Cardizem CD 120 mg capsule,extended release RxNorm: 858791 1 Capsule(s) PO daily 03/05/2016 03/07/2016 Inactive phentermine 37.5 mg capsule RxNorm: 299563 1 Capsule(s) PO daily 12/22/2015 01/20/2016 Inactive norethindrone acetate 5 mg tablet RxNorm: 6890616 1/2 Tablet(s) PO daily 11/14/2015 12/13/2015 Inactive phentermine 37.5 mg capsule RxNorm: 292945 1 Capsule(s) PO daily 11/14/2015 12/13/2015 Inactive phentermine 37.5 mg capsule RxNorm: 913438 Capsule(s) PO 201511/13/2015 Inactive cefdinir 300 mg capsule RxNorm: 108987 1 Capsule(s) PO BID 10/11/2015 Inactive Zithromax Z-Davis 250 mg tablet RxNorm: 236919 1 Tablet(s) PO UD 09/05/2015 03/04/2016 Inactive 1 zpack estradiol 0.5 mg tablet RxNorm: 092014 1 Tablet(s) PO daily No Start Date Active metoprolol succinate ER 50 mg tablet,extended release 24 hr RxNorm: 075500 1 Tablet(s) PO daily Dr Milly lombardi No Start Date Active Mobic 15 mg tablet RxNorm: 742423 1 Tablet(s) PO daily No Start Date Active Zithromax Z-Davis 250 mg tablet RxNorm: 504494 1 Tablet(s) PO UD No Start Date 09/04/2015 Inactive 1 zpack Medication Administered Medication Codes Instructions Start Date Status Kenalog 40 mg/mL suspension for injection RxNorm: 9623537 1.5Milliliter 07/20/2018 No longer Active Kenalog 40 mg/mL suspension for injection RxNorm: 8190278 Milliliter 07/17/2018 No longer Active Immunizations Vaccine [...] 30.6 pg 01/27/2017 Cbc With Differential Ord2 [place]% 7.0 % 01/27/2017 Cbc With Differential Ord2 [...] 1.67 K/ul 01/27/2017 Cbc With Differential Ord2 [place] ABS# 0.3 K/ul 01/27/2017 Cbc With Differential Ord2 Eos ABS# 0.1 K/ul 01/27/2017 Cbc With Differential Ord2 Baso ABS# 0.0 K/ul 01/27/2017 Lipid Ord30 CHOL 168 mg/dL 01/27/2017 Lipid Ord30 HDL 50.0 mg/dl 01/27/2017 Lipid Ord30 TRIG 69 mg/dL 01/27/2017 Lipid Ord30 LDL 104 mg/dL 01/27/2017 Lipid Ord30 C/HDL 3.4 Ratio 01/27/2017 Comp Metabolic Zan810 NA 141 mEq/L 01/27/2017 Comp Metabolic Wrd219 K 3.9 mEq/L 01/27/2017 Comp Metabolic Gvb938 CL 105 mEq/L 01/27/2017 Comp Metabolic Apy840 CO2 26.0 mEq/L 01/27/2017 Comp Metabolic Twj445 ANION GAP 14 01/27/2017 Comp Metabolic Lwp304 GLUCOSE 83 mg/dL 01/27/2017 Comp Metabolic Hic339 Creat 1.0 mg/dL 01/27/2017 Comp Metabolic Zwj849 eGFR 65 ml/min/1.73m2 01/27/2017 Comp Metabolic Dvv710 BUN 21 mg/dL 01/27/2017 Comp Metabolic Wzn904 B/C Ratio 22.1 Ratio 01/27/2017 Comp Metabolic Wyh763 CALCIUM 9.4 mg/dL 01/27/2017 Comp Metabolic Arw966 ALK PHOS 47 U/L 01/27/2017 Comp Metabolic Mzs474 AST(SGOT) 15 U/L 01/27/2017 Comp Metabolic Mtg244 ALT(SGPT) 10 U/L 01/27/2017 Comp Metabolic Bbq508 BILI T 0.8 mg/dL 01/27/2017 Comp Metabolic Xxw858 ALBUMIN 4.5 g/dL 01/27/2017 Comp Metabolic Nuw671 TPRO 6.7 g/dL 01/27/2017 Comp Metabolic Dwc149 GLOB 2.2 g/dL 01/27/2017 Comp Metabolic Wox560 A/G Ratio 2.0 Ratio 01/27/2017 Comp Metabolic Vdz216 Osmo 283 mOsmo 01/27/2017 Review of Systems [...] CPT-4: J3301 07/20/2018 THER/PROPH/DIAG INJ SC/IM CPT-4: 02307 07/20/2018 TRIAMCINOLONE ACET INJ NOS CPT-4: J3301 07/17/2018 Vital Signs Date Vital 07/28/2018 Blood Pressure 1: 120/80 Code : 8480-6 BMI: 27.7 Code : 19349-2 Heart Rate 1 : 73 bpm Height: 5'7" SpO2: 99% Weight: 177 lbs 07/20/2018 Blood Pressure 1: 120/84 Code : 8480-6 Heart Rate 1: 91 bpm Height: 5'7" SpO2: 98% Temperature: 36.7 (C) / 98.1 (F) Weight: 07/17/2018 Blood Pressure 1: 112/78 Code : 8480-6 BMI: 27.9 Code : 86173-3 Heart Rate 1 : 60 bpm Height: 5'7" SpO2: 97% Temperature: 36.1 (C) / 97.0 (F) Weight: 178 lbs 06/11/2017 Blood Pressure 1: 126/74 Code : 8480-6 BMI: 27.1 Code : 91327-5 Heart Rate 1 : 77 bpm Height: 5'7" SpO2: 96% Weight: 173 lbs 03/13/2017 Blood Pressure 1: 118/64 Code : 8480-6 BMI: 24.4 Code : 03350-5 Heart Rate 1 : 88 bpm Height: 5'7" SpO2: 97% Weight: 156 lbs 01/30/2017 Blood Pressure 1: 112/72 Code : 8480-6 BMI: 25.5 Code : 22638-3 Heart Rate 1 : 71 bpm Height: 5'7" SpO2: 98% Weight: 163 lbs 03/08/2016 Blood Pressure 1: 104/62 Code : 8480-6 BMI: 25.8 Code : 02329-5 Heart Rate 1 : 95 bpm Height: 5'7" SpO2: 98% Weight: 165 lbs 03/05/2016 Blood Pressure 1: 144/98 Code : 8480-6 Heart Rate 1: 111 bpm Height: SpO2: 99% Temperature: 36.6 (C) / 97.8 (F) Weight: 01/26/2016 Blood Pressure 1: 128/82 Code : 8480-6 BMI: 26.5 Code : 14889-0 Heart Rate 1 : 89 bpm Height: 5'7" SpO2: 99% Weight: 169 lbs 12/22/2015 Blood Pressure 1: 118/78 Code : 8480-6 BMI: 26.5 Code : 40351-9 Heart Rate 1 : 87 bpm Height: 5'7" SpO2: 97% Weight: 169 lbs 11/14/2015 Blood Pressure 1: 112/70 Code : 8480-6 BMI: 26.9 Code : 34198-2 Heart Rate 1 : 91 bpm Height: 5'7" SpO2: 98% Weight: 172 lbs 10/17/2015 Blood Pressure 1: 110/70 Code : 8480-6 BMI: 28.2 Code : 40216-3 Heart Rate 1 : 77 bpm Height: 5'7" SpO2: 97% Weight: 180 lbs 10/05/2015 Blood Pressure 1: 128/80 Code : 8480-6 BMI: 28.0 Code : 49009-3 Heart Rate 1 : 88 bpm Height: 5'7" SpO2: 94% Weight: 179 lbs 12/14/2014 Blood Pressure 1: 130/92 Code : 8480-6 BMI: 28.3 Code : 99031-7 Heart Rate 1 : 90 bpm Height: [...] data Encounters Encounter Performer Location Codes Date ([id number]) [id number] EST. PATIENT, LEVEL III Diagnosis: Otalgia, left ear[ICD10: H92.02] Diagnosis: Other allergic rhinitis[ICD10: J30.89] Diagnosis: Other specified disorders of Eustachian tube, left ear[ICD10: H69.82 ] Francoise Ramirez MD, [facility] CPT-4: 57940 2018 [id number]) [id number] EST. PATIENT, LEVEL III Diagnosis: Acute upper respiratory infection, unspecified[ICD10: J06.9] Francoise Ramirez MD, [facility] CPT-4: 03541 07/17/2018 [id number] EST. PATIENT, LEVEL III Diagnosis: Acute laryngopharyngitis[ICD10: J06.0] Diagnosis: Other acute sinusitis[ICD10: J01.80] Diagnosis: Other allergic rhinitis[ICD10: J30.89] Nia Ramirez MD, [facility] CPT-4: 26369 06/11/2017 [id number]) 38657 EST. PATIENT, LEVEL III Diagnosis: Viral intestinal infection, unspecified[ICD10: A08.4] Diagnosis: Essential (primary) hypertension[ICD10: I10] Diagnosis: Encounter for follow-up examination after completed treatment for conditions other than malignant neoplasm[ICD10: Z09] Francoise Ramirez MD, [facility] CPT-4: 24423 03/13/2017 ([id number]) PREV VISIT EST AGE 40-64 Diagnosis: Encounter for general adult medical examination without abnormal findings[ICD10: Z00.00] Francoise Ramirez MD, [facility] CPT-4: 35257 01/30/2017 ([id number]) 49943 EST. PATIENT, LEVEL III Diagnosis: Cough[ICD10: R05] Diagnosis: Acute recurrent maxillary sinusitis[ICD10: J01.01] Francoise Ramirez MD, [facility] CPT-4: 50068 03/08/2016 ([id number]) 73961 EST. PATIENT, LEVEL IV Diagnosis: Tachycardia, unspecified[ICD10: R00.0] Diagnosis: Dizziness and giddiness[ICD10: R42] Diagnosis: Elevated blood-pressure reading, without diagnosis of hypertension[ ICD10: R03.0] Francoise Ramirez MD, [facility] CPT-4: 56322 03/05/2016 ([id number]) Miscellaneous no charge Diagnosis: Overweight[ICD10: E66.3] Francoise Ramirez MD, [facility] CPT-4: 48279 01/26/2016 ([id number]) Miscellaneous no charge Diagnosis: Overweight[ICD10: E66.3] Francoise Ramirez MD, [facility] CPT-4: 44389 12/22/2015 ([id number]) Miscellaneous no charge Diagnosis: Overweight[ICD10: E66.3] [facility] CPT-4: 84976 11/14/2015 ([id number]) PREV VISIT EST AGE 40-64 Diagnosis: Encounter for general adult medical examination without abnormal findings[ICD10: Z00.00] Diagnosis: Body mass index (BMI) 28.0-28.9, adult[ICD10: Z68.28] Francoise Ramirez MD, [facility] CPT-4: 42297 10/17/2015 ([id number]) 06183 EST. PATIENT, LEVEL III Diagnosis: Cough[ICD10: R05] Diagnosis: Acute bronchitis, unspecified[ICD10: J20.9] Francoise Ramirez MD, [facility] CPT-4: 38428 10/05/2015 ([id number]) OFFICE VISIT, NEW - LEVEL 4 Diagnosis: PREVENTIVE PHYSICAL EXAM[ICD9: V70.0] Chanda Ramirez MD, [facility] CPT-4: 72455 12/14/2014 Plan of Care Planned Activity Notes Codes Status Date Referral: KwesiMicheal [address] Patient informed. Referral info faxed. Completed 08/05/2018 [...] in the nasal steroid allergy spray. 07/28/2018 Patient Education: Patient Medication Summary Completed 07/28/2018 Care Plan: Referral Order SNOMED-CT : [id number] Pending 07/28/2018 Visit Plan: RLW-klpnajk-cilaroy injection today in the office 07/20/2018 Appointment: Francoise Perry WPtel: [address] [place] [address] (15 min) Moderate 07/20/2018 Patient Education: Patient Medication Summary Completed 07/20/2018 Visit Plan: URI - Pt advised to increase fluids, vitamin C. Discussed natural and expected course of this diagnosis and need to alert me if symptoms do not follow expected course, or if any worse. RX sent to patient' s pharmacy. 07/17/2018 Appointment: Francoise Perry WPtel: [address] [place] [address] (15 min) Moderate 07/17/2018 Patient Education: Patient Medication Summary Completed 07/17/2018 Appointment: Nia Shanks WPtel: [address] [place], [place] [phone] (30 min) Complex 07/09/2017 Visit Plan: URI [...] allergy spray. 06/11/2017 Appointment: Nia Shanks WPtel: [address] [place], [place] [phone] (15 min) Moderate 06/11/2017 Patient Education: Patient Medication Summary Completed 06/11/2017 Visit Plan: Viral enteritis-hospital follow up-symptoms resolved-no further treatment indicated HTN-blood pressure normal after illness resolved-continue to monitor. 03/13/2017 Appointment: Francoise Perry WPtel: [address] [place], [place] [phone] (15 min) Moderate 03/13/2017 Patient Education: Patient Medication Summary Completed 03/13/2017 Patient Education: Hypertension Completed 03/13/2017 Appointment: Francoise Perry [facility]el[phone] [place] (30 min) Complex 03/07/2017 Visit Plan: [...] renal functioning. 01/30/2017 Appointment: Francoise Perry WPtel: [phone] (15 min) Moderate 01/30/2017 Patient Education: Patient Medication Summary Completed 01/30/2017 Patient Education: Obesity Completed 01/30/2017 Patient Education: Patient Medication Summary Completed 01/23/2017 Visit Plan: Sinusitis-cough- Pt has acute infection - pain in face, maxillary region, Pt informed to use decongestant, RX given to patient , sinus rinses also recommended. Call if symptoms do not show improvement. 03/08/2016 Appointment: Francoise Perry WPtel: [phone] (15 min) Moderate 03/08/2016 Patient Education: Patient [...] as well 03/05/2016 Appointment: Francoise Perry WPtel: [phone] (15 min) Moderate 03/05/2016 Patient Education: Patient Medication Summary Completed 03/05/2016 Care Plan: COMPLETE CBC AUTOMATED LOINC : 04471-5 Pending 03/05/2016 Visit Plan: Overweight-off phentermine x [...] Plan: CHEST X-RAY 2VW FRONTAL&LATL LOINC : 86756-6 Ordered 10/05/2015 Appointment: Chanda Ramirez WPtel: [address] [place], [place] [phone] (15 min) Moderate 06/12/2015 Visit Plan: Well [...] Education: Patient Medication Summary Completed 12/14/2014 [facility] [place] [facility] Requested Instructions Comment . Well [...] need weight check in 2 months FLONASE VLIMA BENADRYL AT BEDTIME . Allergies - left [...] back on added salt in the diet. Ykfpenrxzuq-igmswoorq-utyckeh sent to the hospital for labs and [...] CEFDINIR TODAY START PREDNISONE PILLS TOMORROW . UBP-cjdukyf-tfkgszl injection today in the office . URI - Pt advised to increase fluids, vitamin C. Discussed natural and expected course of this diagnosis and need to alert me if symptoms do not follow expected course, or if any worse. RX sent to patient's pharmacy. MUCINEX 1200MG TWICE DAILY CHEST XRAY SYMBICORT 1 TWICE DAILY-SAMPLE PROVIDED CEFDINIR 300MG TWICE DAILY-SENT ELECTRONICALLY TO [facility] . Bronchitis - acute case of bronchitis [...]
--- OUTSIDE RECORDS SUMMARY | 2018-10-22 09:38 | XMS REPORT | CCD ---
Author Author [facility]anda Ramirez Organization [facility] Address [address] [place] [address] Phone Care Team Providers Care Case Hardener Name Role Phone PP Unavailable CCM Unavailable Summary Purpose Interface Exchange Insurance Providers Payer name Policy type / Coverage type Covered green party ID Effective Begin Date Effective End Date Blue Cross Blue [facility] Blue Cross/Blue Shield [id number] Unknown Family history Father Diagnosis Age At Onset Hypertension Unknown Heart Attack Unknown Social History Social History Element Codes Description Effective Dates Marital status Unknown [place] 07/28/2018 Employment Unknown Currently employed 12/14/[address]: 352027307 Never smoker 12/14/2014 Alcohol history Unknown occasionally drinks alcohol 12/14/2014 Allergies, Adverse Reactions, Alerts Substance Reaction Codes Entered Date Inactivated Date Status * NO KNOWN FOOD ALLERGIES Unknown 12/14/2014 No Inactive Date Active AUGMENTIN RxNorm: 677864 12/14/2014 No Inactive Date Active SULFA(SULFONAMIDE ANTIBIOTICS) [...] Instructions Vilma Allergy 180 mg tablet RxNorm: 872675 1 Tablet(s) PO daily 07/28/2018 08/26/2018 Active Kenalog 40 mg/mL suspension for injection RxNorm: 0582677 1.5 Milliliter(s) Inj 07/20/2018 07/20/2018 Inactive prednisone 20 mg tablet RxNorm: 374272 1 Tablet(s) PO BID 07/2007/24/2018 Inactive morning and noon cefdinir 300 mg capsule RxNorm: 419339 1 Capsule(s) PO BID 07/26/2018 Inactive Zithromax Z-Davis 250 mg tablet RxNorm: 259641 1 Tablet(s) PO UD 07/17/2018 07/21/2018 Inactive Kenalog 40 mg/mL suspension for injection RxNorm: 0364081 Milliliter(s) Inj 07/17/2018 07/17/2018 Inactive Flonase Allergy Relief 50 mcg/actuation nasal spray, suspension RxNorm: 0995428 USE 1 SPRAY(S) IN EACH NOSTRIL TWICE DAILY 04/29/2018 No Stop Date Active Flonase Allergy Relief 50 mcg/actuation nasal spray, suspension RxNorm: 1869921 USE ONE SPRAY(S) IN EACH NOSTRIL TWICE DAILY 11/19/2017 04/28/2018 Inactive Zithromax Z-Davis 250 mg tablet RxNorm: 940598 1 Tablet(s) PO UD 09/15/2017 09/19/2017 Inactive Flonase Allergy Relief 50 mcg/actuation nasal spray, suspension RxNorm: 8709186 1 [place] NASAL BID 06/11/20172016 Inactive Zithromax Z-Davis 250 mg tablet RxNorm: 225140 1 Tablet(s) PO UD 06/11/2017 06/15/2017 Inactive Zithromax Z-Davis 250 mg tablet RxNorm: 595791 1 Tablet(s) PO UD 03/08/2016 03/12/2016 Inactive Cardizem CD 120 mg capsule,extended release RxNorm: 212056 1 Capsule(s) PO daily 03/05/2016 03/07/2016 Inactive phentermine 37.5 mg capsule RxNorm: 910089 1 Capsule(s) PO daily 12/22/2015 01/20/2016 Inactive norethindrone acetate 5 mg tablet RxNorm: 8904810 1/2 Tablet(s) PO daily 11/14/2015 12/13/2015 Inactive phentermine 37.5 mg capsule RxNorm: 300075 1 Capsule(s) PO daily 11/14/2015 12/13/2015 Inactive phentermine 37.5 mg capsule RxNorm: 927901 Capsule(s) PO 201511/13/2015 Inactive cefdinir 300 mg capsule RxNorm: 787616 1 Capsule(s) PO BID 10/11/2015 Inactive Zithromax Z-Davis 250 mg tablet RxNorm: 976481 1 Tablet(s) PO UD 09/05/2015 03/04/2016 Inactive 1 zpack estradiol 0.5 mg tablet RxNorm: 289024 1 Tablet(s) PO daily No Start Date Active metoprolol succinate ER 50 mg tablet,extended release 24 hr RxNorm: 742877 1 Tablet(s) PO daily Dr Milly lombardi No Start Date Active Mobic 15 mg tablet RxNorm: 010777 1 Tablet(s) PO daily No Start Date Active Zithromax Z-Davis 250 mg tablet RxNorm: 594416 1 Tablet(s) PO UD No Start Date 09/04/2015 Inactive 1 zpack Medication Administered Medication Codes Instructions Start Date Status Kenalog 40 mg/mL suspension for injection RxNorm: 3069475 1.5Milliliter 07/20/2018 No longer Active Kenalog 40 mg/mL suspension for injection RxNorm: 4907102 Milliliter 07/17/2018 No longer Active Immunizations Vaccine [...] 30.6 pg 01/27/2017 Cbc With Differential Ord2 Ocean% 7.0 % 01/27/2017 Cbc With Differential Ord2 [...] 1.67 K/ul 01/27/2017 Cbc With Differential Ord2 Ocean ABS# 0.3 K/ul 01/27/2017 Cbc With Differential Ord2 Eos ABS# 0.1 K/ul 01/27/2017 Cbc With Differential Ord2 Baso ABS# 0.0 K/ul 01/27/2017 Lipid Ord30 CHOL 168 mg/dL 01/27/2017 Lipid Ord30 HDL 50.0 mg/dl 01/27/2017 Lipid Ord30 TRIG 69 mg/dL 01/27/2017 Lipid Ord30 LDL 104 mg/dL 01/27/2017 Lipid Ord30 C/HDL 3.4 Ratio 01/27/2017 Comp Metabolic Cpo928 NA 141 mEq/L 01/27/2017 Comp Metabolic Bqr124 K 3.9 mEq/L 01/27/2017 Comp Metabolic Udh032 CL 105 mEq/L 01/27/2017 Comp Metabolic Wvu569 CO2 26.0 mEq/L 01/27/2017 Comp Metabolic Cya930 ANION GAP 14 01/27/2017 Comp Metabolic Nse756 GLUCOSE 83 mg/dL 01/27/2017 Comp Metabolic Jru035 Creat 1.0 mg/dL 01/27/2017 Comp Metabolic Pjv482 eGFR 65 ml/min/1.73m2 01/27/2017 Comp Metabolic Lao201 BUN 21 mg/dL 01/27/2017 Comp Metabolic Wvb527 B/C Ratio 22.1 Ratio 01/27/2017 Comp Metabolic Jvf336 CALCIUM 9.4 mg/dL 01/27/2017 Comp Metabolic Sin330 ALK PHOS 47 U/L 01/27/2017 Comp Metabolic Uwm296 AST(SGOT) 15 U/L 01/27/2017 Comp Metabolic Dbr860 ALT(SGPT) 10 U/L 01/27/2017 Comp Metabolic Gab912 BILI T 0.8 mg/dL 01/27/2017 Comp Metabolic Aef520 ALBUMIN 4.5 g/dL 01/27/2017 Comp Metabolic Mhl224 TPRO 6.7 g/dL 01/27/2017 Comp Metabolic Lhi898 GLOB 2.2 g/dL 01/27/2017 Comp Metabolic Kqh146 A/G Ratio 2.0 Ratio 01/27/2017 Comp Metabolic Yim993 Osmo 283 mOsmo 01/27/2017 Review of Systems [...] CPT-4: J3301 07/20/2018 THER/PROPH/DIAG INJ SC/IM CPT-4: 87242 07/20/2018 TRIAMCINOLONE ACET INJ NOS CPT-4: J3301 07/17/2018 Vital Signs Date Vital 07/28/2018 Blood Pressure 1: 120/80 Code : 8480-6 BMI: 27.7 Code : 49493-5 Heart Rate 1 : 73 bpm Height: 5'7" SpO2: 99% Weight: 177 lbs 07/20/2018 Blood Pressure 1: 120/84 Code : 8480-6 Heart Rate 1: 91 bpm Height: 5'7" SpO2: 98% Temperature: 36.7 (C) / 98.1 (F) Weight: 07/17/2018 Blood Pressure 1: 112/78 Code : 8480-6 BMI: 27.9 Code : 84714-1 Heart Rate 1 : 60 bpm Height: 5'7" SpO2: 97% Temperature: 36.1 (C) / 97.0 (F) Weight: 178 lbs 06/11/2017 Blood Pressure 1: 126/74 Code : 8480-6 BMI: 27.1 Code : 27176-9 Heart Rate 1 : 77 bpm Height: 5'7" SpO2: 96% Weight: 173 lbs 03/13/2017 Blood Pressure 1: 118/64 Code : 8480-6 BMI: 24.4 Code : 35415-4 Heart Rate 1 : 88 bpm Height: 5'7" SpO2: 97% Weight: 156 lbs 01/30/2017 Blood Pressure 1: 112/72 Code : 8480-6 BMI: 25.5 Code : 45846-6 Heart Rate 1 : 71 bpm Height: 5'7" SpO2: 98% Weight: 163 lbs 03/08/2016 Blood Pressure 1: 104/62 Code : 8480-6 BMI: 25.8 Code : 84078-5 Heart Rate 1 : 95 bpm Height: 5'7" SpO2: 98% Weight: 165 lbs 03/05/2016 Blood Pressure 1: 144/98 Code : 8480-6 Heart Rate 1: 111 bpm Height: SpO2: 99% Temperature: 36.6 (C) / 97.8 (F) Weight: 01/26/2016 Blood Pressure 1: 128/82 Code : 8480-6 BMI: 26.5 Code : 14634-0 Heart Rate 1 : 89 bpm Height: 5'7" SpO2: 99% Weight: 169 lbs 12/22/2015 Blood Pressure 1: 118/78 Code : 8480-6 BMI: 26.5 Code : 49033-3 Heart Rate 1 : 87 bpm Height: 5'7" SpO2: 97% Weight: 169 lbs 11/14/2015 Blood Pressure 1: 112/70 Code : 8480-6 BMI: 26.9 Code : 48305-9 Heart Rate 1 : 91 bpm Height: 5'7" SpO2: 98% Weight: 172 lbs 10/17/2015 Blood Pressure 1: 110/70 Code : 8480-6 BMI: 28.2 Code : 13812-4 Heart Rate 1 : 77 bpm Height: 5'7" SpO2: 97% Weight: 180 lbs 10/05/2015 Blood Pressure 1: 128/80 Code : 8480-6 BMI: 28.0 Code : 69702-9 Heart Rate 1 : 88 bpm Height: 5'7" SpO2: 94% Weight: 179 lbs 12/14/2014 Blood Pressure 1: 130/92 Code : 8480-6 BMI: 28.3 Code : 93827-9 Heart Rate 1 : 90 bpm Height: [...] data Encounters Encounter Performer Location Codes Date ([id number]) [id number] EST. PATIENT, LEVEL III Diagnosis: Otalgia, left ear[ICD10: H92.02] Diagnosis: Other allergic rhinitis[ICD10: J30.89] Diagnosis: Other specified disorders of Eustachian tube, left ear[ICD10: H69.82 ] Francoise Ramirez MD, [facility] CPT-4: 12947 2018 [id number]) 98066 EST. PATIENT, LEVEL III Diagnosis: Acute upper respiratory infection, unspecified[ICD10: J06.9] Francoise Ramirez MD, [facility] CPT-4: 27328 07/17/2018 02967 EST. PATIENT, LEVEL III Diagnosis: Acute laryngopharyngitis[ICD10: J06.0] Diagnosis: Other acute sinusitis[ICD10: J01.80] Diagnosis: Other allergic rhinitis[ICD10: J30.89] Nia Ramirez MD, [facility] CPT-4: 88161 06/11/2017 [id number]) [id number] EST. PATIENT, LEVEL III Diagnosis: Viral intestinal infection, unspecified[ICD10: A08.4] Diagnosis: Essential (primary) hypertension[ICD10: I10] Diagnosis: Encounter for follow-up examination after completed treatment for conditions other than malignant neoplasm[ICD10: Z09] Francoise Ramirez MD, [facility] CPT-4: 75159 03/13/2017 ([id number]) PREV VISIT EST AGE 40-64 Diagnosis: Encounter for general adult medical examination without abnormal findings[ICD10: Z00.00] Francoise Ramirez MD, [facility] CPT-4: 04231 01/30/2017 ([id number]) 33763 EST. PATIENT, LEVEL III Diagnosis: Cough[ICD10: R05] Diagnosis: Acute recurrent maxillary sinusitis[ICD10: J01.01] Francoise Ramirez MD, [facility] CPT-4: 53114 03/08/2016 ([id number]) 95223 EST. PATIENT, LEVEL IV Diagnosis: Tachycardia, unspecified[ICD10: R00.0] Diagnosis: Dizziness and giddiness[ICD10: R42] Diagnosis: Elevated blood-pressure reading, without diagnosis of hypertension[ ICD10: R03.0] Francoise Ramirez MD, [facility] CPT-4: 40058 03/05/2016 ([id number]) Miscellaneous no charge Diagnosis: Overweight[ICD10: E66.3] Francoise Ramirez MD, [facility] CPT-4: 49869 01/26/2016 ([id number]) Miscellaneous no charge Diagnosis: Overweight[ICD10: E66.3] Francoise Ramirez MD, [facility] CPT-4: 46423 12/22/2015 ([id number]) Miscellaneous no charge Diagnosis: Overweight[ICD10: E66.3] [facility] CPT-4: 48282 11/14/2015 ([id number]) PREV VISIT EST AGE 40-64 Diagnosis: Encounter for general adult medical examination without abnormal findings[ICD10: Z00.00] Diagnosis: Body mass index (BMI) 28.0-28.9, adult[ICD10: Z68.28] Francoise Ramirez MD, [facility] CPT-4: 60551 10/17/2015 ([id number]) 82732 EST. PATIENT, LEVEL III Diagnosis: Cough[ICD10: R05] Diagnosis: Acute bronchitis, unspecified[ICD10: J20.9] Francoise Ramirez MD, [facility] CPT-4: 61649 10/05/2015 ([id number]) OFFICE VISIT, NEW - LEVEL 4 Diagnosis: PREVENTIVE PHYSICAL EXAM[ICD9: V70.0] Chanda Ramirez MD, [facility] CPT-4: 09116 12/14/2014 Plan of Care Planned Activity Notes Codes Status Date Visit Plan: Allergies - left earache - [...] 07/28/2018 Care Plan: Referral Order SNOMED-CT : 582705184 Pending 07/28/2018 Visit Plan: TPC-czkuktr-pqishpn injection today in the office 07/20/2018 Appointment: Francoise Perry WPtel: [address] [place], [place] [phone] (15 min) Moderate 07/20/2018 Patient Education: Patient Medication Summary Completed 07/20/2018 Visit Plan: URI - Pt advised to increase fluids, vitamin C. Discussed natural and expected course of this diagnosis and need to alert me if symptoms do not follow expected course, or if any worse. RX sent to patient' s pharmacy. 07/17/2018 Appointment: Francoise Perry WPtel: [address] [place], [place] [phone] (15 min) Moderate 07/17/2018 Patient Education: Patient Medication Summary Completed 07/17/2018 Appointment: Nia Shanks WPtel: [address] [place], [place] [phone] (30 min) Complex 07/09/2017 Visit Plan: URI [...] allergy spray. 06/11/2017 Appointment: Nia Shanks WPtel: [facility] (15 min) Moderate 06/11/2017 Patient Education: Patient Medication Summary Completed 06/11/2017 Visit Plan: Viral enteritis-hospital follow up-symptoms resolved-no further treatment indicated HTN-blood pressure normal after illness resolved-continue to monitor. 03/13/2017 Appointment: Francoise Perry WPtel: [phone] (15 min) Moderate 03/13/2017 Patient Education: Patient Medication Summary Completed 03/13/2017 Patient Education: Hypertension Completed 03/13/2017 Appointment: Francoise Perry WPtel: [address] [place], [place] [phone] (30 min) Complex 03/07/2017 Visit Plan: Well [...] renal functioning. 01/30/2017 Appointment: Francoise Perry WPtel: [phone] [place] (15 min) Moderate 01/30/2017 Patient Education: Patient Medication Summary Completed 01/30/2017 Patient Education: Obesity Completed 01/30/2017 Patient Education: Patient Medication Summary Completed 01/23/2017 Visit Plan: Sinusitis-cough- Pt has acute infection - pain in face, maxillary region, Pt informed to use decongestant, RX given to patient , sinus rinses also recommended. Call if symptoms do not show improvement. 03/08/2016 Appointment: Francoise Perry WPtel: [phone] (15 min) Moderate 03/08/2016 Patient Education: Patient [...] as well 03/05/2016 Appointment: Francoise Perry WPtel: [phone] (15 min) Moderate 03/05/2016 Patient Education: Patient Medication Summary Completed 03/05/2016 Care Plan: COMPLETE CBC AUTOMATED LOINC : 60423-6 Pending 03/05/2016 Visit Plan: Overweight-off phentermine x [...] Plan: CHEST X-RAY 2VW FRONTAL&LATL LOINC : 65648-6 Ordered 10/05/2015 Appointment: Chanda Ramirez WPtel: [address] [place], [place] [phone] (15 min) Moderate 06/12/2015 Visit Plan: Well [...] Education: Patient Medication Summary Completed 12/14/2014 [facility] [place] [id number] [facility] Appoint[facility] Requested Instructions Comment . Well [...] back on added salt in the diet. Kcgtqmjccvj-ogbmmfevl-xmkrvuv sent to the hospital for labs and [...] CEFDINIR TODAY START PREDNISONE PILLS TOMORROW . QNU-sshezlo-dywoxzk injection today in the office . URI - Pt advised to increase fluids, vitamin C. Discussed natural and expected course of this diagnosis and need to alert me if symptoms do not follow expected course, or if any worse. RX sent to patient's pharmacy. MUCINEX 1200MG TWICE DAILY CHEST XRAY SYMBICORT 1 TWICE DAILY-SAMPLE PROVIDED CEFDINIR 300MG TWICE DAILY-SENT ELECTRONICALLY TO [facility] . Bronchitis - acute case of bronchitis [...]
--- OUTSIDE RECORDS SUMMARY | 2018-10-22 09:39 | XMS REPORT | CCD ---
Author Author [facility]anda [facility] Organization [facility] Address [address] [place] [address] Phone Care Team Providers Care Claims Consultant Name Role Phone PP Unavailable CCM Unavailable Summary Purpose Interface Exchange Insurance Providers Payer name Policy type / Coverage type Covered republican ID Effective Begin Date Effective End Date Blue Cross Blue [facility] Blue Cross/Blue Shield [id number] 2017 Unknown Family history Father Diagnosis Age At Onset Hypertension Unknown Heart Attack Unknown Social History Social History Element Codes Description Effective Dates Marital status Unknown nancy 12/14/2014 Employment Unknown Currently employed 12/14/[address]: 686743675 Never smoker 12/14/2014 Alcohol history Unknown occasionally drinks alcohol 12/14/2014 Allergies, Adverse Reactions, Alerts Substance Reaction Codes Entered Date Inactivated Date Status * NO KNOWN FOOD ALLERGIES Unknown 12/14/2014 No Inactive Date Active AUGMENTIN RxNorm: 935262 12/14/2014 No Inactive Date Active SULFA(SULFONAMIDE ANTIBIOTICS) Unknown 12/14/2014 No Inactive Date Active Past Medical History Illness Codes Condition Status Onset Date Resolved Date Acute upper respiratory infection, unspecified ICD-9: 465.9 ICD-10: J06.9 Active 07/17/2018 Unknown Otalgia, left ear ICD- 9: 388.70 ICD-10: H92.02 Active 07/20/2018 Unknown Acute laryngopharyngitis ICD-9: 465.0 ICD-10: J06.0 Active 06/11/2017 Unknown Other acute sinusitis ICD-9: 461.8 ICD-10: J01.80 Active 06/11/2017 Unknown Other allergic rhinitis ICD-9: 477.8 ICD-10: J30.89 Active 06/11/2017 Unknown Hypertension Unknown Active 03/13/2017 [...] Problems Condition Codes Effective Dates Condition Status Acute upper respiratory infection, unspecified ICD-9: 465.9 ICD-10: J06.9 07/17/2018 Active Otalgia, left ear ICD- 9: 388.70 ICD-10: H92.02 07/20/2018 Active Acute laryngopharyngitis ICD-9: 465.0 ICD-10: J06.0 06/11/2017 Active Other acute sinusitis ICD-9: 461.8 ICD-10: J01.80 06/11/2017 Active Other allergic rhinitis ICD-9: 477.8 ICD-10: J30.89 06/11/2017 Active Hypertension Unknown 03/13/2017 Active Encounter [...] Start Date Stop Date Status Fill Instructions prednisone 20 mg tablet RxNorm: 497622 1 Tablet(s) PO BID 07/2007/24/2018 Active morning and noon cefdinir 300 mg capsule RxNorm: 758552 1 Capsule(s) PO BID 07/26/2018 Active Kenalog 40 mg/mL suspension for injection RxNorm: 8822041 1.5 Milliliter(s) Inj 07/20/2018 07/20/2018 Inactive Zithromax Z-Davis 250 mg tablet RxNorm: 671022 1 Tablet(s) PO UD 07/17/2018 07/21/2018 Inactive Kenalog 40 mg/mL suspension for injection RxNorm: 2659859 Milliliter(s) Inj 07/17/2018 07/17/2018 Inactive Flonase Allergy Relief 50 mcg/actuation nasal spray, suspension RxNorm: 2692114 USE 1 SPRAY(S) IN EACH NOSTRIL TWICE DAILY 04/29/2018 No Stop Date Active Flonase Allergy Relief 50 mcg/actuation nasal spray, suspension RxNorm: 0458570 USE ONE SPRAY(S) IN EACH NOSTRIL TWICE DAILY 11/19/2017 04/28/2018 Inactive Zithromax Z-Davis 250 mg tablet RxNorm: 861531 1 Tablet(s) PO UD 09/15/2017 09/19/2017 Inactive Flonase Allergy Relief 50 mcg/actuation nasal spray, suspension RxNorm: 9189844 1 [place] NASAL BID 06/11/20172016 Inactive Zithromax Z-Davis 250 mg tablet RxNorm: 834496 1 Tablet(s) PO UD 06/11/2017 06/15/2017 Inactive Zithromax Z-Davis 250 mg tablet RxNorm: 802202 1 Tablet(s) PO UD 03/08/2016 03/12/2016 Inactive Cardizem CD 120 mg capsule,extended release RxNorm: 878388 1 Capsule(s) PO daily 03/05/2016 03/07/2016 Inactive phentermine 37.5 mg capsule RxNorm: 884361 1 Capsule(s) PO daily 12/22/2015 01/20/2016 Inactive norethindrone acetate 5 mg tablet RxNorm: 5260221 1/2 Tablet(s) PO daily 11/14/2015 12/13/2015 Inactive phentermine 37.5 mg capsule RxNorm: 582522 1 Capsule(s) PO daily 11/14/2015 12/13/2015 Inactive phentermine 37.5 mg capsule RxNorm: 409969 Capsule(s) PO 201511/13/2015 Inactive cefdinir 300 mg capsule RxNorm: 371991 1 Capsule(s) PO BID 10/11/2015 Inactive Zithromax Z-Davis 250 mg tablet RxNorm: 879109 1 Tablet(s) PO UD 09/05/2015 03/04/2016 Inactive 1 zpack estradiol 0.5 mg tablet RxNorm: 024092 1 Tablet(s) PO daily No Start Date Active metoprolol succinate ER 50 mg tablet,extended release 24 hr RxNorm: 800503 1 Tablet(s) PO daily Dr Milly lombardi No Start Date Active Mobic 15 mg tablet RxNorm: 881665 1 Tablet(s) PO daily No Start Date Active Zithromax Z-Davis 250 mg tablet RxNorm: 729353 1 Tablet(s) PO UD No Start Date 09/04/2015 Inactive 1 zpack Medication Administered Medication Codes Instructions Start Date Status Kenalog 40 mg/mL suspension for injection RxNorm: 2558141 1.5Milliliter 07/20/2018 No longer Active Kenalog 40 mg/mL suspension for injection RxNorm: 3313247 Milliliter 07/17/2018 No longer Active Immunizations Vaccine Codes Date Status PPD Unknown 11/14/2015 completed Assessments Condition Codes Effective Dates Otalgia, left ear ICD-10: H92.02 ICD-9: 388.70 07/20/2018 Acute upper respiratory infection, unspecified ICD-10: J06.9 ICD-9: 465.9 07/20/2018 Other acute sinusitis ICD-10: J01.80 ICD-9: 461.8 06/11/2017 Acute laryngopharyngitis ICD-10: J06.0 ICD-9: 465.0 06/11/2017 Other allergic rhinitis ICD-10: J30.89 ICD-9: 477.8 06/11/2017 Viral intestinal infection, unspecified ICD-10: A08.4 [...] Reason For Visit Effective Dates Notes earache 07/20/2018 cough 07/17/2018 sinus congestion 06/11/2017 [...] 30.6 pg 01/27/2017 Cbc With Differential Ord2 [place]% 7.0 % 01/27/2017 Cbc With Differential Ord2 [...] 1.67 K/ul 01/27/2017 Cbc With Differential Ord2 [place] ABS# 0.3 K/ul 01/27/2017 Cbc With Differential Ord2 Eos ABS# 0.1 K/ul 01/27/2017 Cbc With Differential Ord2 Baso ABS# 0.0 K/ul 01/27/2017 Lipid Ord30 CHOL 168 mg/dL 01/27/2017 Lipid Ord30 HDL 50.0 mg/dl 01/27/2017 Lipid Ord30 TRIG 69 mg/dL 01/27/2017 Lipid Ord30 LDL 104 mg/dL 01/27/2017 Lipid Ord30 C/HDL 3.4 Ratio 01/27/2017 Comp Metabolic Ran154 NA 141 mEq/L 01/27/2017 Comp Metabolic Ufl015 K 3.9 mEq/L 01/27/2017 Comp Metabolic Zwv001 CL 105 mEq/L 01/27/2017 Comp Metabolic Ncj875 CO2 26.0 mEq/L 01/27/2017 Comp Metabolic Dhs747 ANION GAP 14 01/27/2017 Comp Metabolic Kbm420 GLUCOSE 83 mg/dL 01/27/2017 Comp Metabolic Dib675 Creat 1.0 mg/dL 01/27/2017 Comp Metabolic Obe419 eGFR 65 ml/min/1.73m2 01/27/2017 Comp Metabolic Zfx095 BUN 21 mg/dL 01/27/2017 Comp Metabolic Yxn691 B/C Ratio 22.1 Ratio 01/27/2017 Comp Metabolic Ico813 CALCIUM 9.4 mg/dL 01/27/2017 Comp Metabolic Gsp363 ALK PHOS 47 U/L 01/27/2017 Comp Metabolic Huv609 AST(SGOT) 15 U/L 01/27/2017 Comp Metabolic Dhe801 ALT(SGPT) 10 U/L 01/27/2017 Comp Metabolic Khi724 BILI T 0.8 mg/dL 01/27/2017 Comp Metabolic Wjl121 ALBUMIN 4.5 g/dL 01/27/2017 Comp Metabolic Gzp915 TPRO 6.7 g/dL 01/27/2017 Comp Metabolic Gij486 GLOB 2.2 g/dL 01/27/2017 Comp Metabolic Zmt408 A/G Ratio 2.0 Ratio 01/27/2017 Comp Metabolic Mkm053 Osmo 283 mOsmo 01/27/2017 Review of Systems System Result Effective Dates Constitutional recent illness 07/17/2018 Constitutional No anorexia [...] Result Effective Dates Notes Full Exam - ENT Constitutional general appearance [...] CPT-4: J3301 07/20/2018 THER/PROPH/DIAG INJ SC/IM CPT-4: 56936 07/20/2018 TRIAMCINOLONE ACET INJ NOS CPT-4: J3301 07/17/2018 Vital Signs Date Vital 07/20/2018 Blood Pressure 1: 120/84 Code : 8480-6 Heart Rate 1: 91 bpm Height: 5'7" SpO2: 98% Temperature: 36.7 (C) / 98.1 (F) Weight: 07/17/2018 Blood Pressure 1: 112/78 Code : 8480-6 BMI: 27.9 Code : 70038-8 Heart Rate 1 : 60 bpm Height: 5'7" SpO2: 97% Temperature: 36.1 (C) / 97.0 (F) Weight: 178 lbs 06/11/2017 Blood Pressure 1: 126/74 Code : 8480-6 BMI: 27.1 Code : 89188-5 Heart Rate 1 : 77 bpm Height: 5'7" SpO2: 96% Weight: 173 lbs 03/13/2017 Blood Pressure 1: 118/64 Code : 8480-6 BMI: 24.4 Code : 53990-7 Heart Rate 1 : 88 bpm Height: 5'7" SpO2: 97% Weight: 156 lbs 01/30/2017 Blood Pressure 1: 112/72 Code : 8480-6 BMI: 25.5 Code : 66621-6 Heart Rate 1 : 71 bpm Height: 5'7" SpO2: 98% Weight: 163 lbs 03/08/2016 Blood Pressure 1: 104/62 Code : 8480-6 BMI: 25.8 Code : 54912-7 Heart Rate 1 : 95 bpm Height: 5'7" SpO2: 98% Weight: 165 lbs 03/05/2016 Blood Pressure 1: 144/98 Code : 8480-6 Heart Rate 1: 111 bpm Height: SpO2: 99% Temperature: 36.6 (C) / 97.8 (F) Weight: 01/26/2016 Blood Pressure 1: 128/82 Code : 8480-6 BMI: 26.5 Code : 60684-0 Heart Rate 1 : 89 bpm Height: 5'7" SpO2: 99% Weight: 169 lbs 12/22/2015 Blood Pressure 1: 118/78 Code : 8480-6 BMI: 26.5 Code : 47612-5 Heart Rate 1 : 87 bpm Height: 5'7" SpO2: 97% Weight: 169 lbs 11/14/2015 Blood Pressure 1: 112/70 Code : 8480-6 BMI: 26.9 Code : 31983-5 Heart Rate 1 : 91 bpm Height: 5'7" SpO2: 98% Weight: 172 lbs 10/17/2015 Blood Pressure 1: 110/70 Code : 8480-6 BMI: 28.2 Code : 74338-1 Heart Rate 1 : 77 bpm Height: 5'7" SpO2: 97% Weight: 180 lbs 10/05/2015 Blood Pressure 1: 128/80 Code : 8480-6 BMI: 28.0 Code : 41749-6 Heart Rate 1 : 88 bpm Height: 5'7" SpO2: 94% Weight: 179 lbs 12/14/2014 Blood Pressure 1: 130/92 Code : 8480-6 BMI: 28.3 Code : 48938-4 Heart Rate 1 : 90 bpm Height: 5'7" SpO2: 96% Weight: 181 lbs Functional Status No Functional Status data History of Present Illness Symptom Name Status Result Effective Date Notes Location left ear None Quality acute 2017 [...] data Encounters Encounter Performer Location Codes Date ([id number]) [id number] EST. PATIENT, LEVEL III Diagnosis: Acute upper respiratory infection, unspecified[ICD10: J06.9] Francoise Ramirez MD, [facility] CPT-4: 63926 07/17/2018 [id number] EST. PATIENT, LEVEL III Diagnosis: Acute laryngopharyngitis[ICD10: J06.0] Diagnosis: Other acute sinusitis[ICD10: J01.80] Diagnosis: Other allergic rhinitis[ICD10: J30.89] [facility] CPT-4: 37490 06/11/2017 ([id number]) 80708 EST. PATIENT, LEVEL III Diagnosis: Viral intestinal infection, unspecified[ICD10: A08.4] Diagnosis: Essential (primary) hypertension[ICD10: I10] Diagnosis: Encounter for follow-up examination after completed treatment for conditions other than malignant neoplasm[ICD10: Z09] [facility] CPT-4: 09821 03/13/2017 ([id number]) PREV VISIT EST AGE 40-64 Diagnosis: Encounter for general adult medical examination without abnormal findings[ICD10: Z00.00] [facility] CPT-4: 74463 01/30/2017 ([id number]) 41679 EST. PATIENT, LEVEL III Diagnosis: Cough[ICD10: R05] Diagnosis: Acute recurrent maxillary sinusitis[ICD10: J01.01] Francoise Ramirez MD, [facility] CPT-4: 22367 03/08/2016 ([id number]) 40498 EST. PATIENT, LEVEL IV Diagnosis: Tachycardia, unspecified[ICD10: R00.0] Diagnosis: Dizziness and giddiness[ICD10: R42] Diagnosis: Elevated blood-pressure reading, without diagnosis of hypertension[ ICD10: R03.0] Francoise Ramirez MD, [facility] CPT-4: 47156 03/05/2016 ([id number]) Miscellaneous no charge Diagnosis: Overweight[ICD10: E66.3] Francoise Ramirez MD, [facility] CPT-4: 96075 01/26/2016 ([id number]) Miscellaneous no charge Diagnosis: Overweight[ICD10: E66.3] Francoise Ramirez MD, [facility] CPT-4: 69081 12/22/2015 ([id number]) Miscellaneous no charge Diagnosis: Overweight[ICD10: E66.3] Francoise Ramirez MD, [facility] CPT-4: 10721 11/14/2015 ([id number]) PREV VISIT EST AGE 40-64 Diagnosis: Encounter for general adult medical examination without abnormal findings[ICD10: Z00.00] Diagnosis: Body mass index (BMI) 28.0-28.9, adult[ICD10: Z68.28] Francoise Ramirez MD, [facility] CPT-4: 99618 10/17/2015 ([id number]) 88390 EST. PATIENT, LEVEL III Diagnosis: Cough[ICD10: R05] Diagnosis: Acute bronchitis, unspecified[ICD10: J20.9] Francoise Ramirez MD, [facility] CPT-4: 27176 10/05/2015 ([id number]) OFFICE VISIT, NEW - LEVEL 4 Diagnosis: PREVENTIVE PHYSICAL EXAM[ICD9: V70.0] Chanda Ramirez MD, [facility] CPT-4: 34933 12/14/2014 Plan of Care Planned Activity Notes Codes Status Date Visit Plan: BJS-vluoctr-ysuecnh injection today in the office 07/20/2018 Appointment: Francoise Perry WPtel: [phone] [phone] (15 min) Moderate 07/20/2018 Patient Education: Patient Medication Summary Completed 07/20/2018 Visit Plan: URI - Pt advised to increase fluids, vitamin C. Discussed natural and expected course of this diagnosis and need to alert me if symptoms do not follow expected course, or if any worse. RX sent to patient' s pharmacy. 07/17/2018 Appointment: Francoise Perry WPtel: [phone] [phone] (15 min) Moderate 07/17/2018 Patient Education: Patient Medication Summary Completed 07/17/2018 Appointment: Nia Shanks WPtel: [phone] [facility]66[facility] (30 min) Complex 07/09/2017 Visit Plan: URI [...] allergy spray. 06/11/2017 Appointment: Nia Shanks WPtel: [phone] [facility] (15 min) Moderate 06/11/2017 Patient Education: Patient Medication Summary Completed 06/11/2017 Visit Plan: Viral enteritis-hospital follow up-symptoms resolved-no further treatment indicated HTN-blood pressure normal after illness resolved-continue to monitor. 03/13/2017 Appointment: Francoise Perry WPtel: [phone] (15 min) Moderate 03/13/2017 Patient Education: Patient Medication Summary Completed 03/13/2017 Patient Education: Hypertension Completed 03/13/2017 Appointment: Francoise Perry WPtel: [phone] (30 min) Complex 03/07/2017 Visit Plan: Well [...] renal functioning. 01/30/2017 Appointment: Francoise Perry WPtel: [facility][note 3][address] (15 min) Moderate 01/30/2017 Patient Education: Patient Medication Summary Completed 01/30/2017 Patient Education: Obesity Completed 01/30/2017 Patient Education: Patient Medication Summary Completed 01/23/2017 Visit Plan: Sinusitis-cough- Pt has acute infection - pain in face, maxillary region, Pt informed to use decongestant, RX given to patient , sinus rinses also recommended. Call if symptoms do not show improvement. 03/08/2016 Appointment: Francoise Perry WPtel: [facility][note 3]1 [facility] [place] [address] (15 min) Moderate 03/08/2016 Patient Education: Patient [...] well 03/05/2016 [facility]ment: [phone] (15 min) Moderate 03/05/2016 Patient Education: Patient Medication Summary Completed 03/05/2016 Care Plan: COMPLETE CBC AUTOMATED LOINC : 12144-3 Pending 03/05/2016 Visit Plan: Overweight-off phentermine x [...] Plan: CHEST X-RAY 2VW FRONTAL&LATL LOINC : 46444-1 Ordered 10/05/2015 Appointment: [facility]el[phone] (15 min) Moderate 06/12/2015 Visit Plan: [...] Patient Education: Patient Medication Summary Completed 12/14/2014 Instructions Comment . Well Adult - pt [...] month-will need weight check in 2 months . Well Adult - pt was counseled [...] back on added salt in the diet. Raerdguwlzd-ohyplthoe-aojywfo sent to the hospital for labs and [...] CEFDINIR TODAY START PREDNISONE PILLS TOMORROW . VMU-knnpayp-puxcsbe injection today in the office . URI - Pt advised to increase fluids, vitamin C. Discussed natural and expected course of this diagnosis and need to alert me if symptoms do not follow expected course, or if any worse. RX sent to patient's pharmacy. MUCINEX 1200MG TWICE DAILY CHEST XRAY SYMBICORT 1 TWICE DAILY-SAMPLE PROVIDED CEFDINIR 300MG TWICE DAILY-SENT ELECTRONICALLY TO [facility] . Bronchitis - acute case of bronchitis [...]
--- OUTSIDE RECORDS SUMMARY | 2018-10-22 09:40 | XMS REPORT | CCD ---
Author Author [facility] Organization [facility] Address [address] [place] [address] Phone Care Team Providers Care Agriculture Specialist Name Role Phone PP Unavailable CCM Unavailable Summary Purpose Interface Exchange Insurance Providers Payer name Policy type / Coverage type Covered alliance party ID Effective Begin Date Effective End Date Blue Cross [facility] Blue Cross/Blue Shield [id number] 2017 Unknown Family history Father Diagnosis Age At Onset Hypertension Unknown Heart Attack Unknown Social History Social History Element Codes Description Effective Dates Marital status Unknown nancy 12/14/2014 Employment Unknown Currently employed 12/14/[address]: 097293453 Never smoker 12/14/2014 Alcohol history Unknown occasionally drinks alcohol 12/14/2014 Allergies, Adverse Reactions, Alerts Substance Reaction Codes Entered Date Inactivated Date Status * NO KNOWN FOOD ALLERGIES Unknown 12/14/2014 No Inactive Date Active AUGMENTIN RxNorm: 468413 12/14/2014 No Inactive Date Active SULFA(SULFONAMIDE ANTIBIOTICS) [...] Start Date Stop Date Status Fill Instructions Kenalog 40 mg/mL suspension for injection RxNorm: 2782661 1.5 Milliliter(s) Inj 07/20/2018 07/20/2018 Inactive prednisone 20 mg tablet RxNorm: 983956 1 Tablet(s) PO BID 07/2007/24/2018 Active morning and noon cefdinir 300 mg capsule RxNorm: 316436 1 Capsule(s) PO BID 07/26/2018 Active Zithromax Z-Davis 250 mg tablet RxNorm: 822819 1 Tablet(s) PO UD 07/17/2018 07/21/2018 Active Kenalog 40 mg/mL suspension for injection RxNorm: 5739308 Milliliter(s) Inj 07/17/2018 07/17/2018 Inactive Flonase Allergy Relief 50 mcg/actuation nasal spray, suspension RxNorm: 7332654 USE 1 SPRAY(S) IN EACH NOSTRIL TWICE DAILY 04/29/2018 No Stop Date Active Flonase Allergy Relief 50 mcg/actuation nasal spray, suspension RxNorm: 3376265 USE ONE SPRAY(S) IN EACH NOSTRIL TWICE DAILY 11/19/2017 04/28/2018 Inactive Zithromax Z-Davis 250 mg tablet RxNorm: 880358 1 Tablet(s) PO UD 09/15/2017 09/19/2017 Inactive Flonase Allergy Relief 50 mcg/actuation nasal spray, suspension RxNorm: 9208797 1 [place] NASAL BID 06/11/20172016 Inactive Zithromax Z-Davis 250 mg tablet RxNorm: 740314 1 Tablet(s) PO UD 06/11/2017 06/15/2017 Inactive Zithromax Z-Davis 250 mg tablet RxNorm: 154875 1 Tablet(s) PO UD 03/08/2016 03/12/2016 Inactive Cardizem CD 120 mg capsule,extended release RxNorm: 968678 1 Capsule(s) PO daily 03/05/2016 03/07/2016 Inactive phentermine 37.5 mg capsule RxNorm: 347925 1 Capsule(s) PO daily 12/22/2015 01/20/2016 Inactive norethindrone acetate 5 mg tablet RxNorm: 8117588 1/2 Tablet(s) PO daily 11/14/2015 12/13/2015 Inactive phentermine 37.5 mg capsule RxNorm: 239371 1 Capsule(s) PO daily 11/14/2015 12/13/2015 Inactive phentermine 37.5 mg capsule RxNorm: 765864 Capsule(s) PO 201511/13/2015 Inactive cefdinir 300 mg capsule RxNorm: 528024 1 Capsule(s) PO BID 10/11/2015 Inactive Zithromax Z-Davis 250 mg tablet RxNorm: 515339 1 Tablet(s) PO UD 09/05/2015 03/04/2016 Inactive 1 zpack estradiol 0.5 mg tablet RxNorm: 481094 1 Tablet(s) PO daily No Start Date Active metoprolol succinate ER 50 mg tablet,extended release 24 hr RxNorm: 055544 1 Tablet(s) PO daily Dr Milly lombardi No Start Date Active Mobic 15 mg tablet RxNorm: 167883 1 Tablet(s) PO daily No Start Date Active Zithromax Z-Davis 250 mg tablet RxNorm: 820617 1 Tablet(s) PO UD No Start Date 09/04/2015 Inactive 1 zpack Medication Administered Medication Codes Instructions Start Date Status Kenalog 40 mg/mL suspension for injection RxNorm: 6166563 1.5Milliliter 07/20/2018 Active Kenalog 40 mg/mL suspension for injection RxNorm: 8146710 Milliliter 07/17/2018 No longer Active Immunizations Vaccine [...] 30.6 pg 01/27/2017 Cbc With Differential Ord2 [place]% 7.0 % 01/27/2017 Cbc With Differential Ord2 [...] 1.67 K/ul 01/27/2017 Cbc With Differential Ord2 T[place] ABS# 0.3 K/ul 01/27/2017 Cbc With Differential Ord2 Eos ABS# 0.1 K/ul 01/27/2017 Cbc With Differential Ord2 Baso ABS# 0.0 K/ul 01/27/2017 Lipid Ord30 CHOL 168 mg/dL 01/27/2017 Lipid Ord30 HDL 50.0 mg/dl 01/27/2017 Lipid Ord30 TRIG 69 mg/dL 01/27/2017 Lipid Ord30 LDL 104 mg/dL 01/27/2017 Lipid Ord30 C/HDL 3.4 Ratio 01/27/2017 Comp Metabolic Pcs604 NA 141 mEq/L 01/27/2017 Comp Metabolic Fon207 K 3.9 mEq/L 01/27/2017 Comp Metabolic Sqa808 CL 105 mEq/L 01/27/2017 Comp Metabolic Sjr463 CO2 26.0 mEq/L 01/27/2017 Comp Metabolic Qtf942 ANION GAP 14 01/27/2017 Comp Metabolic Lpy860 GLUCOSE 83 mg/dL 01/27/2017 Comp Metabolic Rhe550 Creat 1.0 mg/dL 01/27/2017 Comp Metabolic Iom398 eGFR 65 ml/min/1.73m2 01/27/2017 Comp Metabolic Mzd444 BUN 21 mg/dL 01/27/2017 Comp Metabolic Uhf014 B/C Ratio 22.1 Ratio 01/27/2017 Comp Metabolic Gmn940 CALCIUM 9.4 mg/dL 01/27/2017 Comp Metabolic Lxn097 ALK PHOS 47 U/L 01/27/2017 Comp Metabolic Rze162 AST(SGOT) 15 U/L 01/27/2017 Comp Metabolic Zko812 ALT(SGPT) 10 U/L 01/27/2017 Comp Metabolic Ibe186 BILI T 0.8 mg/dL 01/27/2017 Comp Metabolic Vwi950 ALBUMIN 4.5 g/dL 01/27/2017 Comp Metabolic Nbn482 TPRO 6.7 g/dL 01/27/2017 Comp Metabolic Adw552 GLOB 2.2 g/dL 01/27/2017 Comp Metabolic Nsf926 A/G Ratio 2.0 Ratio 01/27/2017 Comp Metabolic Rxz773 Osmo 283 mOsmo 01/27/2017 Review of Systems [...] CPT-4: J3301 07/20/2018 THER/PROPH/DIAG INJ SC/IM CPT-4: 92854 07/20/2018 TRIAMCINOLONE ACET INJ NOS CPT-4: J3301 07/17/2018 Vital Signs Date Vital 07/20/2018 Blood Pressure 1: 120/84 Code : 8480-6 Heart Rate 1: 91 bpm Height: 5'7" SpO2: 98% Temperature: 36.7 (C) / 98.1 (F) Weight: 07/17/2018 Blood Pressure 1: 112/78 Code : 8480-6 BMI: 27.9 Code : 81854-0 Heart Rate 1 : 60 bpm Height: 5'7" SpO2: 97% Temperature: 36.1 (C) / 97.0 (F) Weight: 178 lbs 06/11/2017 Blood Pressure 1: 126/74 Code : 8480-6 BMI: 27.1 Code : 93677-8 Heart Rate 1 : 77 bpm Height: 5'7" SpO2: 96% Weight: 173 lbs 03/13/2017 Blood Pressure 1: 118/64 Code : 8480-6 BMI: 24.4 Code : 65868-2 Heart Rate 1 : 88 bpm Height: 5'7" SpO2: 97% Weight: 156 lbs 01/30/2017 Blood Pressure 1: 112/72 Code : 8480-6 BMI: 25.5 Code : 60755-7 Heart Rate 1 : 71 bpm Height: 5'7" SpO2: 98% Weight: 163 lbs 03/08/2016 Blood Pressure 1: 104/62 Code : 8480-6 BMI: 25.8 Code : 05136-3 Heart Rate 1 : 95 bpm Height: 5'7" SpO2: 98% Weight: 165 lbs 03/05/2016 Blood Pressure 1: 144/98 Code : 8480-6 Heart Rate 1: 111 bpm Height: SpO2: 99% Temperature: 36.6 (C) / 97.8 (F) Weight: 01/26/2016 Blood Pressure 1: 128/82 Code : 8480-6 BMI: 26.5 Code : 25659-6 Heart Rate 1 : 89 bpm Height: 5'7" SpO2: 99% Weight: 169 lbs 12/22/2015 Blood Pressure 1: 118/78 Code : 8480-6 BMI: 26.5 Code : 82322-5 Heart Rate 1 : 87 bpm Height: 5'7" SpO2: 97% Weight: 169 lbs 11/14/2015 Blood Pressure 1: 112/70 Code : 8480-6 BMI: 26.9 Code : 25386-8 Heart Rate 1 : 91 bpm Height: 5'7" SpO2: 98% Weight: 172 lbs 10/17/2015 Blood Pressure 1: 110/70 Code : 8480-6 BMI: 28.2 Code : 79203-4 Heart Rate 1 : 77 bpm Height: 5'7" SpO2: 97% Weight: 180 lbs 10/05/2015 Blood Pressure 1: 128/80 Code : 8480-6 BMI: 28.0 Code : 81736-4 Heart Rate 1 : 88 bpm Height: 5'7" SpO2: 94% Weight: 179 lbs 12/14/2014 Blood Pressure 1: 130/92 Code : 8480-6 BMI: 28.3 Code : 28259-2 Heart Rate 1 : 90 bpm Height: [...] data Encounters Encounter Performer Location Codes Date [id number] EST. PATIENT, LEVEL III Diagnosis: Acute upper respiratory infection, unspecified[ICD10: J06.9] [facility] CPT-4: 58646 07/17/2018 [id number] EST. PATIENT, LEVEL III Diagnosis: Acute laryngopharyngitis[ICD10: J06.0] Diagnosis: Other acute sinusitis[ICD10: J01.80] Diagnosis: Other allergic rhinitis[ICD10: J30.89] [facility] CPT-4: 09428 06/11/2017 ([id number]) 72902 EST. PATIENT, LEVEL III Diagnosis: Viral intestinal infection, unspecified[ICD10: A08.4] Diagnosis: Essential (primary) hypertension[ICD10: I10] Diagnosis: Encounter for follow-up examination after completed treatment for conditions other than malignant neoplasm[ICD10: Z09] [facility] CPT-4: 55783 03/13/2017 ([id number]) PREV VISIT EST AGE 40-64 Diagnosis: Encounter for general adult medical examination without abnormal findings[ICD10: Z00.00] [facility] CPT-4: 09945 01/30/2017 ([id number]) 03889 EST. PATIENT, LEVEL III Diagnosis: Cough[ICD10: R05] Diagnosis: Acute recurrent maxillary sinusitis[ICD10: J01.01] [facility] MD, [facility] CPT-4: 03192 03/08/2016 ([id number]) 70202 EST. PATIENT, LEVEL IV Diagnosis: Tachycardia, unspecified[ICD10: R00.0] Diagnosis: Dizziness and giddiness[ICD10: R42] Diagnosis: Elevated blood-pressure reading, without diagnosis of hypertension[ ICD10: R03.0] [facility] MD, [facility] CPT-4: 80623 03/05/2016 ([id number]) Miscellaneous no charge Diagnosis: Overweight[ICD10: E66.3] [facility] Ramirez MD, [facility] CPT-4: 60016 01/26/2016 ([id number]) Miscellaneous no charge Diagnosis: Overweight[ICD10: E66.3] Franco[facility] Ramirez MD, [facility] CPT-4: 54698 12/22/2015 ([id number]) Miscellaneous no charge Diagnosis: Overweight[ICD10: E66.3] [facility] Ramirez MD, [facility] CPT-4: 73283 11/14/2015 ([id number]) PREV VISIT EST AGE 40-64 Diagnosis: Encounter for general adult medical examination without abnormal findings[ICD10: Z00.00] Diagnosis: Body mass index (BMI) 28.0-28.9, adult[ICD10: Z68.28] Franco[facility] Ramirez MD, [facility] CPT-4: 63975 10/17/2015 ([id number]) 06237 EST. PATIENT, LEVEL III Diagnosis: Cough[ICD10: R05] Diagnosis: Acute bronchitis, unspecified[ICD10: J20.9] Francoise Ramirez MD, [facility] CPT-4: 61453 10/05/2015 ([id number]) OFFICE VISIT, NEW - LEVEL 4 Diagnosis: PREVENTIVE PHYSICAL EXAM[ICD9: V70.0] [facility], [facility] CPT-4: 27427 12/14/2014 Plan of Care Planned Activity Notes Codes Status Date Visit Plan: SRP-pxjubmi-pyixoco injection today in the office 07/20/2018 Patient Education: Patient Medication Summary Completed 07/20/2018 Visit Plan: URI - Pt advised to increase fluids, vitamin C. Discussed natural and expected course of this diagnosis and need to alert me if symptoms do not follow expected course, or if any worse. RX sent to patient' s pharmacy. 07/17/2018 Appointment: Francoise Perry WPtel: [phone] [place] (15 min) Moderate 07/17/2018 Patient Education: Patient Medication Summary Completed 07/17/2018 Appointment: Nia Shanks WPtel: [phone] [phone] (30 min) Complex 07/09/2017 Visit Plan: URI [...] allergy spray. 06/11/2017 [facility]ment[facility] [phone] [facility] [place] (15 min) Moderate 06/11/2017 Patient Education: Patient Medication Summary Completed 06/11/2017 Visit Plan: Viral enteritis-hospital follow up-symptoms resolved-no further treatment indicated HTN-blood pressure normal after illness resolved-continue to monitor. 03/13/2017 Appointment: Francoise Perry WPtel: [phone] [phone] [place] (15 min) Moderate 03/13/2017 Patient Education: Patient Medication Summary Completed 03/13/2017 Patient Education: Hypertension Completed 03/13/2017 Appointment: Francoise Prery WPtel: [phone] (30 min) Complex 03/07/2017 Visit Plan: Well [...] Appointment: Francoise Perry WPtel: [phone] (15 min) Moderate 01/30/2017 Patient Education: Patient [...] Appointment: Francoise Perry WPtel: [phone] (15 min) Moderate 03/08/2016 Patient Education: Patient [...] Appointment: Francoise Perry WPtel: [phone] (15 min) Moderate 03/05/2016 Patient Education: Patient Medication Summary Completed 03/05/2016 Care Plan: COMPLETE CBC AUTOMATED LOINC : 25484-1 Pending 03/05/2016 Visit Plan: Overweight-off phentermine x [...] Plan: CHEST X-RAY 2VW FRONTAL&LATL LOINC : 01185-4 Ordered 10/05/2015 [phone] [facility] [place] (15 min) Moderate 06/12/2015 Visit Plan: Well [...] back on added salt in the diet. Inruxbxizhs-jbvsefydo-maktnpm sent to the hospital for labs and [...] CEFDINIR TODAY START PREDNISONE PILLS TOMORROW . HCW-yemlicf-sgbovab injection today in the office . URI - Pt advised to increase fluids, vitamin C. Discussed natural and expected course of this diagnosis and need to alert me if symptoms do not follow expected course, or if any worse. RX sent to patient's pharmacy. MUCINEX 1200MG TWICE DAILY CHEST XRAY SYMBICORT 1 TWICE DAILY-SAMPLE PROVIDED CEFDINIR 300MG TWICE DAILY-SENT ELECTRONICALLY TO [facility] . Bronchitis - acute case of bronchitis [...]
--- OUTSIDE RECORDS SUMMARY | 2018-10-22 09:42 | XMS REPORT | CCD ---
Author Author [facility] Organization [facility] Address [address] [place] [address] Phone Care Team Providers Care Assistant County Engineer Name Role Phone PP Unavailable CCM Unavailable Summary Purpose Interface Exchange Insurance Providers Payer name Policy type / Coverage type Covered green party ID Effective Begin Date Effective End Date Blue Cross Blue [facility] Blue Cross/Blue Shield [id number] 2017 Unknown Family history Father Diagnosis Age At Onset Hypertension Unknown Heart Attack Unknown Social History Social History Element Codes Description Effective Dates Marital status Unknown nancy 12/14/2014 Employment Unknown Currently employed 12/14/[address]: 650302732 Never smoker 12/14/2014 Alcohol history Unknown occasionally drinks alcohol 12/14/2014 Allergies, Adverse Reactions, Alerts Substance Reaction Codes Entered Date Inactivated Date Status * NO KNOWN FOOD ALLERGIES Unknown 12/14/2014 No Inactive Date Active AUGMENTIN RxNorm: 259863 12/14/2014 No Inactive Date Active SULFA(SULFONAMIDE ANTIBIOTICS) [...] Start Date Stop Date Status Fill Instructions Zithromax Z-Davis 250 mg tablet RxNorm: 074298 1 Tablet(s) PO UD 07/17/2018 07/21/2018 Active Kenalog 40 mg/mL suspension for injection RxNorm: 2293256 Milliliter(s) Inj 07/17/2018 07/17/2018 Inactive Flonase Allergy Relief 50 mcg/actuation nasal spray, suspension RxNorm: 5095554 USE 1 SPRAY(S) IN EACH NOSTRIL TWICE DAILY 04/29/2018 No Stop Date Active Flonase Allergy Relief 50 mcg/actuation nasal spray, suspension RxNorm: 3913802 USE ONE SPRAY(S) IN EACH NOSTRIL TWICE DAILY 11/19/2017 04/28/2018 Inactive Zithromax Z-Davis 250 mg tablet RxNorm: 427209 1 Tablet(s) PO UD 09/15/2017 09/19/2017 Inactive Flonase Allergy Relief 50 mcg/actuation nasal spray, suspension RxNorm: 1958181 1 [place] NASAL BID 06/11/20172016 Inactive Zithromax Z-Davis 250 mg tablet RxNorm: 836543 1 Tablet(s) PO UD 06/11/2017 06/15/2017 Inactive Zithromax Z-Davis 250 mg tablet RxNorm: 984475 1 Tablet(s) PO UD 03/08/2016 03/12/2016 Inactive Cardizem CD 120 mg capsule,extended release RxNorm: 257013 1 Capsule(s) PO daily 03/05/2016 03/07/2016 Inactive phentermine 37.5 mg capsule RxNorm: 809073 1 Capsule(s) PO daily 12/22/2015 01/20/2016 Inactive norethindrone acetate 5 mg tablet RxNorm: 8418731 1/2 Tablet(s) PO daily 11/14/2015 12/13/2015 Inactive phentermine 37.5 mg capsule RxNorm: 946043 1 Capsule(s) PO daily 11/14/2015 12/13/2015 Inactive phentermine 37.5 mg capsule RxNorm: 442000 Capsule(s) PO 201511/13/2015 Inactive cefdinir 300 mg capsule RxNorm: 044993 1 Capsule(s) PO BID 10/11/2015 Inactive Zithromax Z-Davis 250 mg tablet RxNorm: 974032 1 Tablet(s) PO UD 09/05/2015 03/04/2016 Inactive 1 zpack estradiol 0.5 mg tablet RxNorm: 299588 1 Tablet(s) PO daily No Start Date Active metoprolol succinate ER 50 mg tablet,extended release 24 hr RxNorm: 308523 1 Tablet(s) PO daily Dr Milly lombardi No Start Date Active Mobic 15 mg tablet RxNorm: 596797 1 Tablet(s) PO daily No Start Date Active Zithromax Z-Davis 250 mg tablet RxNorm: 538858 1 Tablet(s) PO UD No Start Date 09/04/2015 Inactive 1 zpack Medication Administered Medication Codes Instructions Start Date Status Kenalog 40 mg/mL suspension for injection RxNorm: 7587997 Milliliter 07/17/2018 Active Immunizations Vaccine Codes Date Status PPD Unknown 11/14/2015 completed Assessments Condition Codes Effective Dates Acute upper respiratory infection, unspecified ICD-10: J06.9 ICD-9: 465.9 07/17/2018 Other acute sinusitis ICD-10: J01.80 ICD-9: 461.8 [...] Visit Reason For Visit Effective Dates Notes cough 07/17/2018 sinus congestion 06/11/2017 Hospital Follow [...] 30.6 pg 01/27/2017 Cbc With Differential Ord2 [place]% 7.0 % 01/27/2017 Cbc With Differential Ord2 [...] 1.67 K/ul 01/27/2017 Cbc With Differential Ord2 [place] ABS# 0.3 K/ul 01/27/2017 Cbc With Differential Ord2 [place] ABS# 0.1 K/ul 01/27/2017 Cbc With Differential Ord2 Baso ABS# 0.0 K/ul 01/27/2017 Lipid Ord30 CHOL 168 mg/dL 01/27/2017 Lipid Ord30 HDL 50.0 mg/dl 01/27/2017 Lipid Ord30 TRIG 69 mg/dL 01/27/2017 Lipid Ord30 LDL 104 mg/dL 01/27/2017 Lipid Ord30 C/HDL 3.4 Ratio 01/27/2017 Comp Metabolic Sxi293 NA 141 mEq/L 01/27/2017 Comp Metabolic Wyg829 K 3.9 mEq/L 01/27/2017 Comp Metabolic Zyx184 CL 105 mEq/L 01/27/2017 Comp Metabolic Sxz037 CO2 26.0 mEq/L 01/27/2017 Comp Metabolic Xyw974 ANION GAP 14 01/27/2017 Comp Metabolic Gqn538 GLUCOSE 83 mg/dL 01/27/2017 Comp Metabolic Qkf200 Creat 1.0 mg/dL 01/27/2017 Comp Metabolic Hac697 eGFR 65 ml/min/1.73m2 01/27/2017 Comp Metabolic Mui554 BUN 21 mg/dL 01/27/2017 Comp Metabolic Wnl808 B/C Ratio 22.1 Ratio 01/27/2017 Comp Metabolic Nzh027 CALCIUM 9.4 mg/dL 01/27/2017 Comp Metabolic Uyu137 ALK PHOS 47 U/L 01/27/2017 Comp Metabolic Pxh496 AST(SGOT) 15 U/L 01/27/2017 Comp Metabolic Hyi203 ALT(SGPT) 10 U/L 01/27/2017 Comp Metabolic Ixq949 BILI T 0.8 mg/dL 01/27/2017 Comp Metabolic Cry862 ALBUMIN 4.5 g/dL 01/27/2017 Comp Metabolic Zqx645 TPRO 6.7 g/dL 01/27/2017 Comp Metabolic Hof249 GLOB 2.2 g/dL 01/27/2017 Comp Metabolic Snh737 A/G Ratio 2.0 Ratio 01/27/2017 Comp Metabolic Ngf837 Osmo 283 mOsmo 01/27/2017 Review of Systems [...] Date TRIAMCINOLONE ACET INJ NOS CPT-4: J3301 07/17/2018 Vital Signs Date Vital 07/17/2018 Blood Pressure 1: 112/78 Code : 8480-6 BMI: 27.9 Code : 71974-4 Heart Rate 1 : 60 bpm Height: 5'7" SpO2: 97% Temperature: 36.1 (C) / 97.0 (F) Weight: 178 lbs 06/11/2017 Blood Pressure 1: 126/74 Code : 8480-6 BMI: 27.1 Code : 00971-2 Heart Rate 1 : 77 bpm Height: 5'7" SpO2: 96% Weight: 173 lbs 03/13/2017 Blood Pressure 1: 118/64 Code : 8480-6 BMI: 24.4 Code : 54984-7 Heart Rate 1 : 88 bpm Height: 5'7" SpO2: 97% Weight: 156 lbs 01/30/2017 Blood Pressure 1: 112/72 Code : 8480-6 BMI: 25.5 Code : 30640-0 Heart Rate 1 : 71 bpm Height: 5'7" SpO2: 98% Weight: 163 lbs 03/08/2016 Blood Pressure 1: 104/62 Code : 8480-6 BMI: 25.8 Code : 71770-9 Heart Rate 1 : 95 bpm Height: 5'7" SpO2: 98% Weight: 165 lbs 03/05/2016 Blood Pressure 1: 144/98 Code : 8480-6 Heart Rate 1: 111 bpm Height: SpO2: 99% Temperature: 36.6 (C) / 97.8 (F) Weight: 01/26/2016 Blood Pressure 1: 128/82 Code : 8480-6 BMI: 26.5 Code : 91185-2 Heart Rate 1 : 89 bpm Height: 5'7" SpO2: 99% Weight: 169 lbs 12/22/2015 Blood Pressure 1: 118/78 Code : 8480-6 BMI: 26.5 Code : 22516-5 Heart Rate 1 : 87 bpm Height: 5'7" SpO2: 97% Weight: 169 lbs 11/14/2015 Blood Pressure 1: 112/70 Code : 8480-6 BMI: 26.9 Code : 02246-1 Heart Rate 1 : 91 bpm Height: 5'7" SpO2: 98% Weight: 172 lbs 10/17/2015 Blood Pressure 1: 110/70 Code : 8480-6 BMI: 28.2 Code : 19920-8 Heart Rate 1 : 77 bpm Height: 5'7" SpO2: 97% Weight: 180 lbs 10/05/2015 Blood Pressure 1: 128/80 Code : 8480-6 BMI: 28.0 Code : 29166-3 Heart Rate 1 : 88 bpm Height: 5'7" SpO2: 94% Weight: 179 lbs 12/14/2014 Blood Pressure 1: 130/92 Code : 8480-6 BMI: 28.3 Code : 76306-3 Heart Rate 1 : 90 bpm Height: 5'7" SpO2: 96% Weight: 181 lbs Functional Status No Functional Status data History of Present Illness Symptom Name Status Result Effective Date Notes Location in the throat 07/17/2018 None Quality [...] data Encounters Encounter Performer Location Codes Date ([id number]) [id number] EST. PATIENT, LEVEL III Diagnosis: Acute upper respiratory infection, unspecified[ICD10: J06.9] [facility] CPT-4: 63241 07/17/2018 26724 EST. PATIENT, LEVEL III Diagnosis: Acute laryngopharyngitis[ICD10: J06.0] Diagnosis: Other acute sinusitis[ICD10: J01.80] Diagnosis: Other allergic rhinitis[ICD10: J30.89] Nia Ramirez MD, [facility] CPT-4: 79981 06/11/2017 ([id number]) 34057 EST. PATIENT, LEVEL III Diagnosis: Viral intestinal infection, unspecified[ICD10: A08.4] Diagnosis: Essential (primary) hypertension[ICD10: I10] Diagnosis: Encounter for follow-up examination after completed treatment for conditions other than malignant neoplasm[ICD10: Z09] [facility] Ramirez MD, [facility] CPT-4: 06522 03/13/2017 ([id number]) PREV VISIT EST AGE 40-64 Diagnosis: Encounter for general adult medical examination without abnormal findings[ICD10: Z00.00] Franco[facility] Ramirez MD, [facility] CPT-4: 77962 01/30/2017 ([id number]) 98527 EST. PATIENT, LEVEL III Diagnosis: Cough[ICD10: R05] Diagnosis: Acute recurrent maxillary sinusitis[ICD10: J01.01] Francoise Ramirez MD, [facility] CPT-4: 85799 03/08/2016 ([id number]) 53629 EST. PATIENT, LEVEL IV Diagnosis: Tachycardia, unspecified[ICD10: R00.0] Diagnosis: Dizziness and giddiness[ICD10: R42] Diagnosis: Elevated blood-pressure reading, without diagnosis of hypertension[ ICD10: R03.0] Francoise Ramirez MD, [facility] CPT-4: 04146 03/05/2016 ([id number]) Miscellaneous no charge Diagnosis: Overweight[ICD10: E66.3] Francoise Ramirez MD, [facility] CPT-4: 69270 01/26/2016 ([id number]) Miscellaneous no charge Diagnosis: Overweight[ICD10: E66.3] Francoise Ramirez MD, [facility] CPT-4: 68343 12/22/2015 ([id number]) Miscellaneous no charge Diagnosis: Overweight[ICD10: E66.3] Francoise Ramirez MD, [facility] CPT-4: 70807 11/14/2015 ([id number]) PREV VISIT EST AGE 40-64 Diagnosis: Encounter for general adult medical examination without abnormal findings[ICD10: Z00.00] Diagnosis: Body mass index (BMI) 28.0-28.9, adult[ICD10: Z68.28] [facility] CPT-4: 92382 10/17/2015 ([id number]) 21403 EST. PATIENT, LEVEL III Diagnosis: Cough[ICD10: R05] Diagnosis: Acute bronchitis, unspecified[ICD10: J20.9] [facility] CPT-4: 71161 10/05/2015 ([id number]) OFFICE VISIT, NEW - LEVEL 4 Diagnosis: PREVENTIVE PHYSICAL EXAM[ICD9: V70.0] Ch[facility] MD, [facility] CPT-4: 54567 12/14/2014 Plan of Care Planned Activity Notes Codes Status Date Visit Plan: URI - Pt advised to increase fluids, vitamin C. Discussed natural and expected course of this diagnosis and need to alert me if symptoms do not follow expected course, or if any worse. RX sent to patient' s pharmacy. 07/17/2018 Patient Education: Patient Medication Summary Completed 07/17/2018 Appointment: Nia Shanks WPtel: [facility] (30 min) Complex 07/09/2017 Visit Plan: URI [...] spray. 06/11/2017 [phone] [facility] (15 min) Moderate 06/11/2017 Patient Education: Patient Medication Summary Completed 06/11/2017 Visit Plan: Viral enteritis-hospital follow up-symptoms resolved-no further treatment indicated HTN-blood pressure normal after illness resolved-continue to monitor. 03/13/2017 Appointment: Francoise Perry WPtel: [facility] [address] (15 min) Moderate 03/13/2017 Patient Education: Patient Medication Summary Completed 03/13/2017 Patient Education: Hypertension Completed 03/13/2017 Appointment: Francoise Perry WPtel: [address] [place], [place] [phone] (30 min) Complex 03/07/2017 Visit Plan: Well [...] renal functioning. 01/30/2017 Appointment: Francoise Perry WPtel: [phone] (15 min) Moderate 01/30/2017 Patient Education: Patient Medication Summary Completed 01/30/2017 Patient Education: Obesity Completed 01/30/2017 Patient Education: Patient Medication Summary Completed 01/23/2017 Visit Plan: Sinusitis-cough- Pt has acute infection - pain in face, maxillary region, Pt informed to use decongestant, RX given to patient , sinus rinses also recommended. Call if symptoms do not show improvement. 03/08/2016 Appointment: Francoise Perry WPtel: [phone] (15 min) Moderate 03/08/2016 Patient Education: Patient [...] if indicated-consider echo as well 03/05/2016 Appointment: PerryFranocise [facility]Ptel[phone] (15 min) Moderate 03/05/2016 Patient Education: Patient Medication Summary Completed 03/05/2016 Care Plan: COMPLETE CBC AUTOMATED LOINC : 06826-5 Pending 03/05/2016 Visit Plan: Overweight-off phentermine x [...] Plan: CHEST X-RAY 2VW FRONTAL&LATL LOINC : 38128-3 Ordered 10/05/2015 Appointment: [facility]el[facility] (15 min) Moderate 06/12/2015 Visit Plan: Well [...] back on added salt in the diet. [id number]-dnvfsfgzq-btuqivd sent to the hospital for labs and EKG-will start on cardizem-plan to refer to Dr Sanchez if indicated-consider echo as well . Overweight/obesity- chronic issue with this patient. The pt has been counseled about diet changes, calorie restriction, and need to exercise. Pt will RTC in one month for weight check. . URI - Pt advised to increase fluids, vitamin C. Discussed natural and expected course of this diagnosis and need to alert me if symptoms do not follow expected course, or if any worse. RX sent to patient's pharmacy. MUCINEX 1200MG TWICE DAILY CHEST XRAY SYMBICORT 1 TWICE DAILY-SAMPLE PROVIDED CEFDINIR 300MG TWICE DAILY-SENT ELECTRONICALLY TO [facility] . Bronchitis - acute case of bronchitis [...]
--- OUTSIDE RECORDS SUMMARY | 2018-10-22 09:42 | XMS REPORT | Continuity of Care Document ---
Author Author [facility] Organization [facility] Address Unknown Phone Unavailable Care Team Providers Care Laboratory Sampler Name Role Phone JHONNY OZUNA MD PP Insurance Providers Payer Name Policy Number Subscriber Name Relationship [facility] Providers Care Network [id number] Tara Godfrey 01 Self / Same As Patient Advance Directives Directive Response Recorded Date Advance Directives Y 05/15/13 3:09am Health Care Power of Distribution Estimator Y 05/15/13 3:09am Organ Donor Y 05/15/13 3:09am Problems No Known Problems or Medical conditions. Family History History Response Recorded Date/Time Hx Family Cancer N 05/28/12 1:25pm Hx Family Cardiac Disorders Y DAD HEART DISEASE 05/28/12 1:25pm Social History History Response Recorded Date/Time Alcohol Use Occasionally Uses 05/15/13 3: 09am Recreational Drug Use N 05/15/13 3:09am Recent Foreign Travel N 05/15/13 3:09am Allergies, Adverse Reactions, Alerts Allergen Type Severity Reaction Last Updated No Known Drug Allergies 05/28/12 Medications Medication Dose Units Route Sig Qty Days Acetaminophen/Hydrocodone Bitart (Vicodin 5-500 Tablet) 1 - 2 Each PO Q4HR PRN 14 Methylprednisolone (Medrol Dose Pack) 1 Packet PO UD 1 Levonorgestrel-Eth Estradiol (Myzilra) 1 Each PO Trimethoprim/Sulfamethoxazole (Bactrim Ds) 1 Ea PO Naproxen (Naprosyn) 1 Each PO BID Levofloxacin (Levaquin 500 Mg) 1 Each PO DAILY 7 Acetaminophen/Hydrocodone Bitart (Lortab 5-500 Tablet) 2 Each PO Q6H PRN Sulfamethoxazole/Trimethoprim (Sulfamethoxazole-Tmp Ds Tab) 1 Each PO BID Promethazine HCl (Phenergan Supp 25 Mg) 1 Supp RC Q4H PRN 4 Acetaminophen/Hydrocodone Bitart (Hydrocodone-Apap 10-325 Tablet) 0.5 - 1 Each PO Q 4 - 6 HRS PRN 20 [Bcp] Response Recorded Date/Time Status not known Unknown Results No Known Relevant Diagnostic Tests, Laboratory Data and/or Discharge Summary. Encounters Encounter Location Date/Time Departed Emergency Room [facility] 3:00am Discharged Inpatient [facility] 1:25pm
--- OUTSIDE RECORDS SUMMARY | 2018-10-22 09:43 | XMS REPORT | Continuity of Care Document ---
Author Author [facility] Organization [facility] Address Unknown Phone Unavailable Allergies Active Description Code Type Severity Reaction Onset Reported/Identified Relationship to Patient Clinical Status Yes No Known Drug Allergies [id number] Drug Allergy Unknown N/A 05/28/2012 Yes sulfamethoxazole [id number] Drug Allergy Severe NAUSEA 03/06/2017 Yes trimethoprim [id number] Drug Allergy Severe NAUSEA 03/06/2017 Yes Penicillins [id number] Drug Allergy Moderate RASH 03/06/2017 Yes TAPE TAPE Mild RASH 03/06/2017 Medications There is no data. Problems Date Dx Coded Attending Type Code Diagnosis Diagnosed By 05/26/2012 Ot 599.0 URIN TRACT INFECTION NOS 05/26/2012 Ot 719.45 JOINT PAIN- PELVIS 05/26/2012 Ot 788.1 DYSURIA 05/29/2012 Ot 276.51 DEHYDRATION 05/29/2012 Ot 340 MULTIPLE SCLEROSIS 05/29/2012 Ot 599.0 URIN TRACT INFECTION NOS 05/29/2012 Ot V03.82 PROPHYLACTIC VACC AGAINST STREPTOCOCCUS 05/29/2012 Ot V04.81 ND FOR PROPHYLACTIC VACCIN AND INOCULATI 05/15/2013 JEANE GREENFIELD, THOMAS Jensen Ot 719.45 JOINT PAIN-PELVIS 05/15/2013 JEANE GREENFIELD, THOMAS Jensen Ot 782.0 SKIN SENSATION DISTURB 05/17/2013 FOSTER QUINN MD Ot 341.9 LANDSCAPER DEMYELINATION NOS 05/17/2013 FOSTER QUINN MD Ot 723.1 CERVICALGIA 05/17/2013 FOSTER QUINN MD Ot 784.0 HEADACHE 07/20/2013 RADHA DIGGS MD Ot 562.10 DIVERTICULOSIS COLON (W/O MENT OF HEMORR 07/20/2013 RADHA DIGGS MD Ot V76.51 SCREEN MAL NEOP-COLON 01/23/2014 SULMA GREENFIELD, JHONNY Bearden Ot 787.91 DIARRHEA 10/05/2015 Ot 599.70 10/05/2015 RADHA DIGGS MD Ot V72.84 10/05/2015 Ot 787.91 10/05/2015 NARCISO BOWEN TEMPLATE CLERK Ot J18.9 11/25/2015 NARCISO BOWEN TEMPLATE CLERK Ot J18.9 PNEUMONIA, UNSPECIFIED ORGANISM 03/05/2016 Ot 599.70 HEMATURIA, UNSPECIFIED 03/05/2016 DONTAE GREENFIELD, RADHA Wahl Ot V72.84 EXAM PRE-OPERATIVE NOS 03/05/2016 Ot 787.91 DIARRHEA 03/05/2016 NARCISO BOWEN TEMPLATE CLERK Ot J18.9 PNEUMONIA, UNSPECIFIED ORGANISM 03/06/2016 NARCISO BOWEN TEMPLATE CLERK Ot R00.0 TACHYCARDIA, UNSPECIFIED 03/06/2016 NARCISO BOWEN TEMPLATE CLERK Ot R00.0 TACHYCARDIA, UNSPECIFIED 04/09/2016 NARCISO BOWEN TEMPLATE CLERK Ot R00.0 TACHYCARDIA, UNSPECIFIED 03/05/2017 Ot 599.70 HEMATURIA, UNSPECIFIED 03/05/2017 DONTAE GREENFIELD, RADHA Wahl Ot V72.84 EXAM PRE-OPERATIVE NOS 03/05/2017 Ot 787.91 DIARRHEA 03/05/2017 NARCISO BOWEN TEMPLATE CLERK Ot J18.9 PNEUMONIA, UNSPECIFIED ORGANISM 03/05/2017 NARCISO BOWEN TEMPLATE CLERK Ot R00.0 TACHYCARDIA, UNSPECIFIED 03/05/2017 KAI GREENFIELD, FOSTER Wahl Ot B34.9 VIRAL INFECTION, UNSPECIFIED 03/05/2017 FOSTER QUINN MD Ot R19.7 DIARRHEA, UNSPECIFIED 03/05/2017 FOSTER QUINN MD Ot R50.9 FEVER, UNSPECIFIED 03/05/2017 FOSTER QUINN MD Ot Z98.1 ARTHRODESIS STATUS 03/06/2017 Ot 787.91 DIARRHEA 03/08/2017 JOSELITO TERESA MD Ot E83.42 HYPOMAGNESEMIA 03/08/2017 JOSELITO TERESA MD Ot E87.6 HYPOKALEMIA 03/08/2017 JOSELITO TERESA MD Ot I10 ESSENTIAL (PRIMARY) HYPERTENSION 03/08/2017 JOSELITO TERESA MD Ot K52.9 NONINFECTIVE GASTROENTERITIS AND COLITIS 03/08/2017 JOSELITO TERESA MD Ot R63.4 ABNORMAL WEIGHT LOSS 03/08/2017 JOSELITO TERESA MD Ot Z79.899 OTHER M[facility] (CURRENT) DRUG THERAPY 03/08/2017 JOSELITO TERESA MD Ot E83.42 HYPOMAGNESEMIA 03/08/2017 JOSELITO TERESA MD, Ot E87.6 HYPOKALEMIA 03/08/2017 JOSELITO TERESA MD, Ot I10 ESSENTIAL (PRIMARY) HYPERTENSION 03/08/2017 JOSELITO TERESA MD, Ot K52.9 NONINFECTIVE GASTROENTERITIS AND COLITIS 03/08/2017 JOSELITO TERESA MD, Ot R63.4 ABNORMAL WEIGHT LOSS 03/08/2017 JOSELITO TERESA MD, Ot Z79.899 OTHER M[facility] (CURRENT) DRUG THERAPY Procedures Code Description [place] [address] MYOCARDIAL PERFUSION MULTI STUDIES SHOSHANA VILLAREAL 03/07/2016 Results Test Result Range Automated blood complete blood count (hemogram) panel - 03/05/16 11:04 Blood leukocytes automated count (number/volume) 7.5 10*3/uL 4.3-11.0 Blood erythrocytes automated count (number/volume) 4.91 10*6/uL 4.35-5.85 Venous blood hemoglobin measurement (mass/volume) 14.5 g/dL 11.5-16.0 Blood hematocrit (volume fraction) 43 % 35-52 Automated erythrocyte mean corpuscular volume 87 [foz_us] 80-99 Automated erythrocyte mean corpuscular hemoglobin (mass per erythrocyte) 30 pg 25-34 Automated erythrocyte mean corpuscular hemoglobin concentration measurement ( mass/volume) 34 g/dL 32-36 Automated erythrocyte distribution width ratio 13.1 % 10.0-14.5 Automated blood platelet count (count/volume) 252 10*3/uL 130-400 Automated blood platelet mean volume measurement 9.9 [foz_us] 7.4-10.4 Comprehensive metabolic panel - 03/05/16 11:04 Serum or plasma sodium measurement (moles/volume) 140 mmol/L 135-145 Serum or plasma potassium measurement (moles/volume) 3.9 mmol/L 3.6-5.0 Serum or plasma chloride measurement (moles/volume) 105 mmol/L 98-107 Carbon dioxide 26 mmol/L 21-32 Serum or plasma anion gap determination (moles/volume) 9 mmol/L 5-14 Serum or plasma urea nitrogen measurement (mass/volume) 16 mg/dL 7-18 Serum or plasma creatinine measurement (mass/volume) 0.89 mg/dL 0.60-1.30 Serum or plasma urea nitrogen/creatinine mass ratio 18 NRG Serum or plasma creatinine measurement with calculation of estimated glomerular filtration rate > NRG Serum or plasma glucose measurement (mass/volume) 113 mg/dL 70-105 Serum or plasma calcium measurement (mass/volume) 10.1 mg/dL 8.5-10.1 Serum or plasma total bilirubin measurement (mass/volume) 0.4 mg/dL 0.1-1.0 Serum or plasma alkaline phosphatase measurement (enzymatic activity/volume) 65 U/L 40-136 Serum or plasma aspartate aminotransferase measurement (enzymatic activity/ volume) 19 U/L 5-34 Serum or plasma alanine aminotransferase measurement (enzymatic activity/volume ) 13 U/L 0-55 Serum or plasma protein measurement (mass/volume) 7.0 g/dL 6.4-8.2 Serum or plasma albumin measurement (mass/volume) 4.4 g/dL 3.2-4.5 Serum or plasma creatine kinase measurement (enzymatic activity/volume) - 03/05 11:04 Serum or plasma creatine kinase measurement (enzymatic activity/volume) 71 U/L 29-168 Serum or plasma troponin i.cardiac measurement (mass/volume) - 03/05/16 11:04 Serum or plasma troponin i.cardiac measurement (mass/volume) < ng/ mL <0.30 Complete blood count (CBC) with automated white blood cell (WBC) differential - 03/05/17 08:20 Blood leukocytes automated count (number/volume) 11.6 10*3/uL 4.3-11.0 Blood erythrocytes automated count (number/volume) 4.75 10*6/uL 4.35-5.85 Venous blood hemoglobin measurement (mass/volume) 14.3 g/dL 11.5-16.0 Blood hematocrit (volume fraction) 42 % 35-52 Automated erythrocyte mean corpuscular volume 89 [foz_us] 80-99 Automated erythrocyte mean corpuscular hemoglobin (mass per erythrocyte) 30 pg 25-34 Automated erythrocyte mean corpuscular hemoglobin concentration measurement ( mass/volume) 34 g/dL 32-36 Automated erythrocyte distribution width ratio 12.6 % 10.0-14.5 Automated blood platelet count (count/volume) 195 10*3/uL 130-400 Automated blood platelet mean volume measurement 9.3 [foz_us] 7.4-10.4 Automated blood neutrophils/100 leukocytes 90 % 42-75 Automated blood lymphocytes/100 leukocytes 5 % 12-44 Blood monocytes/100 leukocytes 5 % 0-12 Automated blood eosinophils/100 leukocytes 0 % 0-10 Automated blood basophils/100 leukocytes 0 % 0-10 Blood neutrophils automated count (number/volume) 10.4 10*3 1.8-7.8 Blood lymphocytes automated count (number/volume) 0.6 10*3 1.0-4.0 Blood monocytes automated count (number/volume) 0.6 10*3 0.0-1.0 Automated eosinophil count 0.0 10*3/uL 0.0-0.3 Automated blood basophil count (count/volume) 0.0 10*3/uL 0.0-0.1 Comprehensive metabolic panel - 03/05/17 08:20 Serum or plasma sodium measurement (moles/volume) 136 mmol/L 135-145 Serum or plasma potassium measurement (moles/volume) 3.8 mmol/L 3.6-5.0 Serum or plasma chloride measurement (moles/volume) 104 mmol/L 98-107 Carbon dioxide 21 mmol/L 21-32 Serum or plasma anion gap determination (moles/volume) 11 mmol/L 5-14 Serum or plasma urea nitrogen measurement (mass/volume) 10 mg/dL 7-18 Serum or plasma creatinine measurement (mass/volume) 0.89 mg/dL 0.60-1.30 Serum or plasma urea nitrogen/creatinine mass ratio 11 NRG Serum or plasma creatinine measurement with calculation of estimated glomerular filtration rate > NRG Serum or plasma glucose measurement (mass/volume) 125 mg/dL 70-105 Serum or plasma calcium measurement (mass/volume) 9.1 mg/dL 8.5-10.1 Serum or plasma total bilirubin measurement (mass/volume) 0.6 mg/dL 0.1-1.0 Serum or plasma alkaline phosphatase measurement (enzymatic activity/volume) 59 U/L 40-136 Serum or plasma aspartate aminotransferase measurement (enzymatic activity/ volume) 18 U/L 5-34 Serum or plasma alanine aminotransferase measurement (enzymatic activity/volume ) 11 U/L 0-55 Serum or plasma protein measurement (mass/volume) 6.8 g/dL 6.4-8.2 Serum or plasma albumin measurement (mass/volume) 4.2 g/dL 3.2-4.5 Blood manual differential performed detection - 03/05/17 08:20 Blood monocytes/100 leukocytes 5 % NRG Manual blood segmented neutrophils/100 leukocytes 83 % NRG Blood band neutrophils/100 leukocytes 10 % NRG Manual blood lymphocytes/100 leukocytes 2 % NRG Manual eosinophils/100 leukocytes in nose 0 % NRG Manual blood basophils/100 leukocytes 0 % NRG Blood toxic granules detection by light microscopy 1+ NRG Complete urinalysis with reflex to culture - 03/05/17 11:00 Urine color determination YELLOW NRG Urine clarity determination CLEAR NRG Urine pH measurement by test strip 5 5-9 Specific gravity of urine by test strip 1.010 1.016- 1.022 Urine protein assay by test strip, semi-quantitative NEGATIVE NEGATIVE Urine glucose detection by automated test strip NEGATIVE NEGATIVE Erythrocytes detection in urine sediment by light microscopy 3+ NEGATIVE Urine ketones detection by automated test strip 2+ NEGATIVE Urine nitrite detection by test strip NEGATIVE NEGATIVE Urine total bilirubin detection by test strip NEGATIVE NEGATIVE Urine urobilinogen measurement by automated test strip (mass/volume) NORMAL NORMAL Urine leukocyte esterase detection by dipstick NEGATIVE NEGATIVE Automated urine sediment erythrocyte count by microscopy (number/high power field) [HPF] NRG Automated urine sediment leukocyte count by microscopy (number/high power field ) NONE NRG Bacteria detection in urine sediment by light microscopy TRACE NRG Squamous epithelial cells detection in urine sediment by light microscopy 2-5 NRG Crystals detection in urine sediment by light microscopy NONE NRG Casts detection in urine sediment by light microscopy NONE NRG Mucus detection in urine sediment by light microscopy NEGATIVE NRG Complete urinalysis with reflex to culture NO NRG Complete urinalysis with reflex to culture - 03/06/17 07:57 Urine color determination YELLOW NRG Urine clarity determination SLIGHTLY CLOUDY NRG Urine pH measurement by test strip 5 5-9 Specific gravity of urine by test strip 1.025 1.016- 1.022 Urine protein assay by test strip, semi-quantitative 3+ NEGATIVE Urine glucose detection by automated test strip NEGATIVE NEGATIVE Erythrocytes detection in urine sediment by light microscopy 5+ NEGATIVE Urine ketones detection by automated test strip 4+ NEGATIVE Urine nitrite detection by test strip NEGATIVE NEGATIVE Urine total bilirubin detection by test strip 1+ NEGATIVE Urine urobilinogen measurement by automated test strip (mass/volume) 1 mg/dL NORMAL Urine leukocyte esterase detection by dipstick 1+ NEGATIVE Automated urine sediment erythrocyte count by microscopy (number/high power field) [HPF] NRG Automated urine sediment leukocyte count by microscopy (number/high power field ) RARE NRG Bacteria detection in urine sediment by light microscopy FEW NRG Squamous epithelial cells detection in urine sediment by light microscopy >50 NRG Crystals detection in urine sediment by light microscopy NONE NRG Casts detection in urine sediment by light microscopy NONE NRG Mucus detection in urine sediment by light microscopy SMALL NRG Complete urinalysis with reflex to culture NO NRG Comprehensive metabolic panel - 03/06/17 08:18 Serum or plasma sodium measurement (moles/volume) 138 mmol/L 135-145 Serum or plasma potassium measurement (moles/volume) 3.2 mmol/L 3.6-5.0 Serum or plasma chloride measurement (moles/volume) 105 mmol/L 98-107 Carbon dioxide 20 mmol/L 21-32 Serum or plasma anion gap determination (moles/volume) 13 mmol/L 5-14 Serum or plasma urea nitrogen measurement (mass/volume) 8 mg/dL 7-18 Serum or plasma creatinine measurement (mass/volume) 0.91 mg/dL 0.60-1.30 Serum or plasma urea nitrogen/creatinine mass ratio 9 NRG Serum or plasma creatinine measurement with calculation of estimated glomerular filtration rate > NRG Serum or plasma glucose measurement (mass/volume) 98 mg/dL 70-105 Serum or plasma calcium measurement (mass/volume) 8.3 mg/dL 8.5-10.1 Serum or plasma total bilirubin measurement (mass/volume) 0.6 mg/dL 0.1-1.0 Serum or plasma alkaline phosphatase measurement (enzymatic activity/volume) 55 U/L 40-136 Serum or plasma aspartate aminotransferase measurement (enzymatic activity/ volume) 20 U/L 5-34 Serum or plasma alanine aminotransferase measurement (enzymatic activity/volume ) 10 U/L 0-55 Serum or plasma protein measurement (mass/volume) 6.9 g/dL 6.4-8.2 Serum or plasma albumin measurement (mass/volume) 4.0 g/dL 3.2-4.5 Complete blood count (CBC) with automated white blood cell (WBC) differential - 03/06/17 08:18 Blood leukocytes automated count (number/volume) 7.7 10*3/uL 4.3-11.0 Blood erythrocytes automated count (number/volume) 4.68 10*6/uL 4.35-5.85 Venous blood hemoglobin measurement (mass/volume) 14.1 g/dL 11.5-16.0 Blood hematocrit (volume fraction) 41 % 35-52 Automated erythrocyte mean corpuscular volume 88 [foz_us] 80-99 Automated erythrocyte mean corpuscular hemoglobin (mass per erythrocyte) 30 pg 25-34 Automated erythrocyte mean corpuscular hemoglobin concentration measurement ( mass/volume) 34 g/dL 32-36 Automated erythrocyte distribution width ratio 12.7 % 10.0-14.5 Automated blood platelet count (count/volume) 190 10*3/uL 130-400 Automated blood platelet mean volume measurement 9.1 [z_us] 7.4-10.4 Automated blood neutrophils/100 leukocytes 81 % 42-75 Automated blood lymphocytes/100 leukocytes 12 % 12-44 Blood monocytes/100 leukocytes 7 % 0-12 Automated blood eosinophils/100 leukocytes 0 % 0-10 Automated blood basophils/100 leukocytes 0 % 0-10 Blood neutrophils automated count (number/volume) 6.2 10*3 1.8-7.8 Blood lymphocytes automated count (number/volume) 0.9 10*3 1.0-4.0 Blood monocytes automated count (number/volume) 0.6 10*3 0.0-1.0 Automated eosinophil count 0.0 10*3/uL 0.0-0.3 Automated blood basophil count (count/volume) 0.0 10*3/uL 0.0-0.1 Blood manual differential performed detection - 03/06/17 08:18 Blood monocytes/100 leukocytes 3 % NR Manual blood segmented neutrophils/100 leukocytes 58 % NRG Blood band neutrophils/100 leukocytes 23 % NRG Manual blood lymphocytes/100 leukocytes 16 % NRG Manual eosinophils/100 leukocytes in nose 0 % NR Manual blood basophils/100 leukocytes 0 % NR Blood erythrocyte morphology finding identification NORMAL BANNER Whole blood basic metabolic panel - 03/06/17 18:39 Serum or plasma sodium measurement (moles/volume) 139 mmol/L 135-145 Serum or plasma potassium measurement (moles/volume) 3.3 mmol/L 3.6-5.0 Serum or plasma chloride measurement (moles/volume) 108 mmol/L 98-107 Carbon dioxide 22 mmol/L 21-32 Serum or plasma anion gap determination (moles/volume) 9 mmol/L 5-14 Serum or plasma urea nitrogen measurement (mass/volume) 7 mg/dL 7-18 Serum or plasma creatinine measurement (mass/volume) 0.71 mg/dL 0.60-1.30 Serum or plasma urea nitrogen/creatinine mass ratio 10 NRG Serum or plasma creatinine measurement with calculation of estimated glomerular filtration rate > NRG Serum or plasma glucose measurement (mass/volume) 77 mg/dL 70-105 Serum or plasma calcium measurement (mass/volume) 8.6 mg/dL 8.5-10.1 Magnesium - 03/06/17 18:39 Magnesium 1.6 mg/dL 1.8-2.4 Complete blood count (CBC) with automated white blood cell (WBC) differential - 03/07/17 05:14 Blood leukocytes automated count (number/volume) 6.0 10*3/uL 4.3-11.0 Blood erythrocytes automated count (number/volume) 4.12 10*6/uL 4.35-5.85 Venous blood hemoglobin measurement (mass/volume) 12.4 g/dL 11.5-16.0 Blood hematocrit (volume fraction) 36 % 35-52 Automated erythrocyte mean corpuscular volume 88 [foz_us] 80-99 Automated erythrocyte mean corpuscular hemoglobin (mass per erythrocyte) 30 pg 25-34 Automated erythrocyte mean corpuscular hemoglobin concentration measurement ( mass/volume) 34 g/dL 32-36 Automated erythrocyte distribution width ratio 12.5 % 10.0-14.5 Automated blood platelet count (count/volume) 186 10*3/uL 130-400 Automated blood platelet mean volume measurement 9.8 [foz_us] 7.4-10.4 Automated blood neutrophils/100 leukocytes 69 % 42-75 Automated blood lymphocytes/100 leukocytes 18 % 12-44 Blood monocytes/100 leukocytes 12 % 0-12 Automated blood eosinophils/100 leukocytes 1 % 0-10 Automated blood basophils/100 leukocytes 0 % 0-10 Blood neutrophils automated count (number/volume) 4.1 10*3 1.8-7.8 Blood lymphocytes automated count (number/volume) 1.1 10*3 1.0-4.0 Blood monocytes automated count (number/volume) 0.7 10*3 0.0-1.0 Automated eosinophil count 0.0 10*3/uL 0.0-0.3 Automated blood basophil count (count/volume) 0.0 10*3/uL 0.0-0.1 Comprehensive metabolic panel - 03/07/17 05:14 Serum or plasma sodium measurement (moles/volume) 140 mmol/L 135-145 Serum or plasma potassium measurement (moles/volume) 3.1 mmol/L 3.6-5.0 Serum or plasma chloride measurement (moles/volume) 108 mmol/L 98-107 Carbon dioxide 20 mmol/L 21-32 Serum or plasma anion gap determination (moles/volume) 12 mmol/L 5-14 Serum or plasma urea nitrogen measurement (mass/volume) 5 mg/dL 7-18 Serum or plasma creatinine measurement (mass/volume) 0.70 mg/dL 0.60-1.30 Serum or plasma urea nitrogen/creatinine mass ratio 7 NRG Serum or plasma creatinine measurement with calculation of estimated glomerular filtration rate > NRG Serum or plasma glucose measurement (mass/volume) 75 mg/dL 70-105 Serum or plasma calcium measurement (mass/volume) 8.7 mg/dL 8.5-10.1 Serum or plasma total bilirubin measurement (mass/volume) 0.4 mg/dL 0.1-1.0 Serum or plasma alkaline phosphatase measurement (enzymatic activity/volume) 50 U/L 40-136 Serum or plasma aspartate aminotransferase measurement (enzymatic activity/ volume) 17 U/L 5-34 Serum or plasma alanine aminotransferase measurement (enzymatic activity/volume ) 11 U/L 0-55 Serum or plasma protein measurement (mass/volume) 6.1 g/dL 6.4-8.2 Serum or plasma albumin measurement (mass/volume) 3.5 g/dL 3.2-4.5 Complete blood count (CBC) with automated white blood cell (WBC) differential - 03/08/17 07:35 Blood leukocytes automated count (number/volume) 4.7 10*3/uL 4.3-11.0 Blood erythrocytes automated count (number/volume) 3.75 10*6/uL 4.35-5.85 Venous blood hemoglobin measurement (mass/volume) 11.2 g/dL 11.5-16.0 Blood hematocrit (volume fraction) 33 % 35-52 Automated erythrocyte mean corpuscular volume 88 [foz_us] 80-99 Automated erythrocyte mean corpuscular hemoglobin (mass per erythrocyte) 30 pg 25-34 Automated erythrocyte mean corpuscular hemoglobin concentration measurement ( mass/volume) 34 g/dL 32-36 Automated erythrocyte distribution width ratio 12.6 % 10.0-14.5 Automated blood platelet count (count/volume) 193 10*3/uL 130-400 Automated blood platelet mean volume measurement 9.1 [foz_us] 7.4-10.4 Automated blood neutrophils/100 leukocytes 54 % 42-75 Automated blood lymphocytes/100 leukocytes 29 % 12-44 Blood monocytes/100 leukocytes 14 % 0-12 Automated blood eosinophils/100 leukocytes 2 % 0-10 Automated blood basophils/100 leukocytes 1 % 0-10 Blood neutrophils automated count (number/volume) 2.5 10*3 1.8-7.8 Blood lymphocytes automated count (number/volume) 1.4 10*3 1.0-4.0 Blood monocytes automated count (number/volume) 0.7 10*3 0.0-1.0 Automated eosinophil count 0.1 10*3/uL 0.0-0.3 Automated blood basophil count (count/volume) 0.0 10*3/uL 0.0-0.1 Comprehensive metabolic panel - 03/08/17 07:35 Serum or plasma sodium measurement (moles/volume) 141 mmol/L 135-145 Serum or plasma potassium measurement (moles/volume) 3.3 mmol/L 3.6-5.0 Serum or plasma chloride measurement (moles/volume) 107 mmol/L 98-107 Carbon dioxide 26 mmol/L 21-32 Serum or plasma anion gap determination (moles/volume) 8 mmol/L 5-14 Serum or plasma urea nitrogen measurement (mass/volume) 2 mg/dL 7-18 Serum or plasma creatinine measurement (mass/volume) 0.64 mg/dL 0.60-1.30 Serum or plasma urea nitrogen/creatinine mass ratio 3 NRG Serum or plasma creatinine measurement with calculation of estimated glomerular filtration rate > NRG Serum or plasma glucose measurement (mass/volume) 94 mg/dL 70-105 Serum or plasma calcium measurement (mass/volume) 8.2 mg/dL 8.5-10.1 Serum or plasma total bilirubin measurement (mass/volume) 0.4 mg/dL 0.1-1.0 Serum or plasma alkaline phosphatase measurement (enzymatic activity/volume) 37 U/L 40-136 Serum or plasma aspartate aminotransferase measurement (enzymatic activity/ volume) 15 U/L 5-34 Serum or plasma alanine aminotransferase measurement (enzymatic activity/volume ) 8 U/L 0-55 Serum or plasma protein measurement (mass/volume) 5.1 g/dL 6.4-8.2 Serum or plasma albumin measurement (mass/volume) 3.1 g/dL 3.2-4.5 Magnesium - 03/08/17 07:35 Magnesium 1.5 mg/dL 1.8-2.4 Encounters ACCT No. Visit Date/Time Discharge Status Pt. Type Provider Facility Loc./Unit Complaint [id number] 03/06/2017 09:38:00 03/08/2017 12:00:00 DIS Inpatient BRII GREENFIELD, JOSELITO Jensen [facility] 4TH DIARRHEA/DEHYDRATION [id number] 03/05/2017 08:10:00 03/05/2017 11:45:00 DIS Emergency FOSTER QUINN MD [facility] ER FLU SYMPTOMS/FEVER [id number] 03/05/2016 10:22:00 03/05/2016 23:59:59 CLS Outpatient NARCISO BOWEN [facility] CARD TACHYCARDIA, PALPITATIONS [id number] 10/05/2015 11:17:00 10/05/2015 23:59:59 CLS Outpatient NARCISO BOWEN [facility] RAD PNEUMONIA,COUGH [id number] 10/25/2013 10:37:00 01/23/2014 00:01:00 DIS Outpatient JHONNY OZUNA MD [facility] LAB 2 WEEKS DIARRHEA [id number] 07/20/2013 07:58:00 07/20/2013 11:10:00 DIS Outpatient RADHA DIGGS MD [facility] SDC SCREENING [id number] 07/16/2013 08:07:00 07/16/2013 23:59:59 CLS Outpatient RDAHA DIGGS MD [facility] PREOP SCREENING [id number] 05/17/2013 07:38:00 05/17/2013 12:29:00 DIS Emergency FOSTER QUINN MD [facility] ER HEADACHE/NAUSEA [id number] 05/15/2013 03:00:00 05/15/2013 05:52:00 DIS Emergency JEANE GREENFIELD, THOMAS Stein [facility] ER PAIN IN MULTIPLE SPOTS, ARM NUMBNESS [id number] 01/24/2014 00:00:00 Document Registration [id number] 05/28/2012 13:25:00 Document Registration [id number] 05/27/2012 15:34:00 Document Registration [id number] 05/26/2012 07:45:00 Document Registration [id number] 03/15/2016 00:00:00 DIS Document Registration
[2018-10-22] MEDS ORDERED: PROG100C6 PO (09:57)
[2018-10-22 10:42] LABS: BASOPHILS % (AUTO) 0 % (0-10); EOSINOPHILS % (AUTO) 0 % (0-10); HEMATOCRIT 41 % (35-52); HEMOGLOBIN 13.8 G/DL (11.5-16.0); LYMPHOCYTES # (AUTO) 1.1 X 10^3 (1.0-4.0); LYMPHOCYTES % (AUTO) 11 % (12-44); MEAN CORPUSCULAR HEMOGLOBIN 30 PG (25-34); MEAN CORPUSCULAR HGB CONC 33 G/DL (32-36); MEAN CORPUSCULAR VOLUME 89 FL (80-99); MEAN PLATELET VOLUME 9.5 FL (7.4-10.4); MONOCYTES # (AUTO) 0.8 X 10^3 (0.0-1.0); MONOCYTES % (AUTO) 8 % (0-12); NEUTROPHILS # (AUTO) 8.1 X 10^3 (1.8-7.8); NEUTROPHILS % (AUTO) 81 % (42-75); PLATELET COUNT 238 10^3/uL (130-400); RED CELL DISTRIBUTION WIDTH 13.2 % (10.0-14.5)
[2018-10-22 10:43] LABS: BILIRUBIN,URINE NEGATIVE (NEGATIVE); CLARITY,URINE CLEAR; COLOR,URINE YELLOW; GLUCOSE, URINE (UA) NEGATIVE (NEGATIVE); KETONES,URINE NEGATIVE (NEGATIVE); LEUKOCYTE ESTERASE ,URINE 1+ (NEGATIVE); NITRITE,URINE NEGATIVE (NEGATIVE); PH,URINE 7 (5-9); PROTEIN,URINE NEGATIVE (NEGATIVE); UROBILINOGEN,URINE NORMAL (NORMAL)
--- NOTE | 2018-10-22 10:43 | ED Abdominal Pain ---
General Chief Complaint: Abdominal/GI Problems Stated Complaint: LOWER LEFT ABD/BACK PAIN Nursing Triage Note: PT AMB TO RM 10 WITH COMPLAINT OF INTERMITTENT LLQ PAIN THAT RADIATES TO LEFT LOWER BACK. PT STATES PAIN STARTED LAST NIGHT AND IS A SHARP PAIN THAT COMES AND GOES. DENIES DIFFICULTY URINATING AND STATES LAST BM WAS NORMAL FOR HER. Sepsis Screen: No Definite Risk Source of Information: Patient Exam Limitations: No Limitations History of Present Illness Date Seen by Provider: Oct 22, 2018 Time Seen by Provider: 10:40 Initial Comments The patient is a 57-year-old white female who presents with a chief complaint of left lower quadrant abdominal pain. She reports that this became a problem late yesterday afternoon. She was scarcely able to sleep last night because of the pain. It is in the suprapubic area and left lower quadrant. She had a normal bowel movement yesterday. She has had no blood from the stool. There is been no nausea or vomiting. There has been no fever or sweats. There is no previous history of this type of pain. Timing/Duration: 12-24 Hours Severity/Quality: Moderate Location: LLQ Allergies and Home Medications Allergies Coded Allergies: Penicillins (Verified Allergy, Intermediate, RASH, 10/22/18) sulfamethoxazole (Verified Adverse Reaction, Severe, NAUSEA, 10/22/18) SEVERE NAUSEA AND BODY ACHES trimethoprim (Verified Adverse Reaction, Severe, NAUSEA, 10/22/18) SEVERE NAUSEA AND BODY ACHES Uncoded Allergies: TAPE (Adverse Reaction, Mild, RASH, 03/06/17) CAUSES SKIN TO BECOME RED AND IRRITATED Home Medications Ascorbic Acid 60 Mg Lozenge, 240 MG PO DAILY, (Reported) TAKES 4 (60 MG) TABLETS Calcium Carbonate/Vitamin D3 1 Each Tablet, 1 TAB PO DAILY, (Reported) Cyanocobalamin (Vitamin B-12) 1,000 Mcg Tablet.er, 1,000 MCG PO DAILY, (Reported ) Estradiol 0.5 Mg Tablet, 0.5 MG PO DAILY, (Reported) L. Rhamnosus/C/Zinc Cit/Yeast 1 Each Capsule, 1 CAP PO DAILY, (Reported) Metoprolol Succinate 50 Mg Tab.er.24h, 50 MG PO DAILY, (Reported) Ped Multivit #43/Iron Fumarate 18 Mg Tab.chew, 36 MG PO DAILY, (Reported) Patient Home Medication List Home Medication List Reviewed: Yes Review of Systems Review of Systems Constitutional: see HPI EENTM: No Symptoms Reported Respiratory: No Symptoms Reported Cardiovascular: No Symptoms Reported Gastrointestinal: See HPI Genitourinary: No Symptoms Reported Musculoskeletal: no symptoms reported Skin: no symptoms reported Psychiatric/Neurological: No Symptoms Reported Endocrine: No Symptoms Reported Hematologic/Lymphatic: No Symptoms Reported Past Bqcxwkh-Fcerpw-Iaqkjm Hx Patient Social History Alcohol Use: Occasionally Uses Recreational Drug Use: No Smoking Status: Never a Smoker Recent Foreign Travel: No Contact w/Someone Who Travel: No Recent Infectious Disease Expo: No Recent Hopitalizations: No Immunizations Up To Date Tetanus Booster (TDap): Unknown PED Vaccines UTD: Yes Past Medical History Surgeries: Yes (C5-C6 FUSION, ELBOW) Adenoidectomy, Orthopedic, Tonsillectomy Respiratory: No Cardiac: Yes Irregular Heartbeat Neurological: Yes (MYELITIS) Reproductive Disorders: No Gastrointestinal: No Musculoskeletal: No Endocrine: No Cancer: No Psychosocial: No Integumentary: No Blood Disorders: No Family Medical History No Pertinent Family Hx Physical Exam Vital Signs Vital Signs - First Documented 10/22/18 09:31 Temp 98.3 Pulse 87 Resp 18 B/P (MAP) 119/83 (95) Pulse Ox 98 O2 Delivery Room Air Capillary Refill : Less Than 3 Seconds Height/Weight/BMI Height: 5'6.00" Weight: 170lbs. 0.0oz. 77.534763fr; 24.3 BMI Method:Stated General Appearance: mild distress HEENT: normal ENT inspection Neck: non-tender, full range of motion, supple, normal inspection Respiratory: chest non-tender, lungs clear, normal breath sounds, no respiratory distress, no accessory muscle use Cardiovascular: normal peripheral pulses, regular rate, rhythm, no edema, no gallop, no JVD, no murmur Gastrointestinal: normal bowel sounds, non tender, soft, no organomegaly, no pulsatile mass Extremities: normal range of motion, non-tender, normal inspection, no pedal edema, no calf tenderness, normal capillary refill, pelvis stable Neurologic/Psychiatric: knitter hand II-XII nml as tested, no motor/sensory deficits, alert, normal mood/affect, oriented x 3 Skin: normal color, warm/dry Progress/Results/Core Measures Results/Orders Lab Results Laboratory Tests Test 10/22/18 09:41 10/22/18 09:49 Range/Units Urine Color YELLOW Urine Clarity CLEAR Urine pH 7 5-9 Urine Specific [place] 1.005 L 1.016-1.022 Urine Protein NEGATIVE NEGATIVE Urine Glucose (UA) NEGATIVE NEGATIVE Urine Ketones NEGATIVE NEGATIVE Urine Nitrite NEGATIVE NEGATIVE Urine Bilirubin NEGATIVE NEGATIVE Urine Urobilinogen NORMAL NORMAL MG/DL Urine Leukocyte Esterase 1+ H NEGATIVE Urine RBC (Auto) NEGATIVE NEGATIVE Urine RBC NONE /HPF Urine WBC NONE /HPF Urine Squamous Epithelial Cells 0-2 /HPF Urine Crystals NONE /LPF Urine Bacteria NEGATIVE /HPF Urine Casts NONE /LPF Urine Mucus NEGATIVE /LPF Urine Culture Indicated NO White Blood Count 10.0 4.3-11.0 10^3/uL Red Blood Count 4.65 4.35-5.85 10^6/uL Hemoglobin 13.8 11.5-16.0 G/DL Hematocrit 41 35-52 % Mean Corpuscular Volume 89 80-99 FL Mean Corpuscular Hemoglobin 30 25-34 PG Mean Corpuscular Hemoglobin Concent 33 32-36 G/DL Red Cell Distribution Width 13.2 10.0-14.5 % Platelet Count 238 130-400 10^3/uL Mean Platelet Volume 9.5 7.4-10.4 FL Neutrophils (%) (Auto) 81 H 42-75 % Lymphocytes (%) (Auto) 11 L 12-44 % Monocytes (%) (Auto) 8 0-12 % Eosinophils (%) (Auto) 0 0-10 % Basophils (%) (Auto) 0 0-10 % Neutrophils # (Auto) 8.1 H 1.8-7.8 X 10^3 Lymphocytes # (Auto) 1.1 1.0-4.0 X 10^3 Monocytes # (Auto) 0.8 0.0-1.0 X 10^3 Eosinophils # (Auto) 0.0 0.0-0.3 10^3/uL Basophils # (Auto) 0.0 0.0-0.1 10^3/uL Sodium Level 138 135-145 MMOL/L Potassium Level 3.8 3.6-5.0 MMOL/L Chloride Level 102 98-107 MMOL/L Carbon Dioxide Level 26 21-32 MMOL/L Anion Gap 10 5-14 MMOL/L Blood Urea Nitrogen 13 7-18 MG/DL Creatinine 0.82 0.60-1.30 MG/DL Estimat Glomerular Filtration Rate > 60 BUN/Creatinine Ratio 16 Glucose Level 94 70-105 MG/DL Calcium Level 9.7 8.5-10.1 MG/DL Corrected Calcium 9.4 8.5-10.1 MG/DL Total Bilirubin 0.7 0.1-1.0 MG/DL Aspartate Amino Transf (AST/SGOT) 20 5-34 U/L Alanine Aminotransferase (ALT/SGPT) 16 0-55 U/L Alkaline Phosphatase 72 40-136 U/L Total Protein 6.9 6.4-8.2 GM/DL Albumin 4.4 3.2-4.5 GM/DL My Orders Orders - COLLEEN GUERRERO MD Cbc With Automated Diff (10/22/18 10:37) Comprehensive Metabolic Panel (10/22/18 10:37) Ua Culture If Indicated (10/22/18 10:37) Ct Abdomen/Pelvis W (10/22/18 11:04) Iohexol Injection (Omnipaque 350 Mg/Ml 1 (10/22/18 11:15) Received Contrast (Hold Metformin- Contr (10/22/18 11:15) Sodium Chloride Flush (Catheter Flush Sy (10/22/18 11:15) Medications Given in ED Current Medications Medications Dose Ordered Sig/Deepak Route Start Time Stop Time Status Last Admin Dose Admin Iohexol 100 ml ONCE ONCE IV 10/22/18 11:15 10/22/18 11:16 DC 10/22/18 11:33 100 ML Sodium Chloride 10 ml NEEDED PRN IV 10/22/18 11:15 10/22/18 11:33 10 ML Vital Signs/I&O 10/22/18 09:31 Temp 98.3 Pulse 87 Resp 18 B/P (MAP) 119/83 (95) Pulse Ox 98 O2 Delivery Room Air Blood Pressure Mean: 95 Departure Communication (Admissions) The CT report shows at a relatively large lucency in the mid liver suggesting a cavernous hemangioma. There is a clear-cut evidence of sigmoid diverticulitis Impression Primary Impression: sigmoid diverticulitis Disposition: ADMITTED INPATIENT Condition: Stable/Unchanged Admissions Decision to Admit Reason: Admit from ER (General) Decision to Admit/Date: Oct 22, 2018 Time/Decision to Admit Time: 12:20 Departure-Patient Inst. Referrals: JOSELITO TERESA MD (PCP/Family) Primary Care Physician COLLEEN GUERRERO MD Oct 22, 2018 10:43
[2018-10-22 10:56] LABS: ALANINE AMINOTRANSFERASE 16 U/L (0-55); ALBUMIN 4.4 GM/DL (3.2-4.5); ALKALINE PHOSPHATASE 72 U/L (40-136); BILIRUBIN,TOTAL 0.7 MG/DL (0.1-1.0); BUN/CREATININE RATIO 16; CALCIUM 9.7 MG/DL (8.5-10.1); CARBON DIOXIDE 26 MMOL/L (21-32); CHLORIDE 102 MMOL/L (98-107); CREATININE SERUM 0.82 MG/DL (0.60-1.30); GFR ESTIMATED > 60; GLUCOSE 94 MG/DL (70-105); POTASSIUM 3.8 MMOL/L (3.6-5.0); SODIUM 138 MMOL/L (135-145); TOTAL PROTEIN 6.9 GM/DL (6.4-8.2)
[2018-10-22 11:05] LABS: BACTERIA,URINE NEGATIVE /HPF; SQUAMOUS EPITHELIAL CELL,UR 0-2 /HPF
[2018-10-22] MEDS ORDERED: CATHETER FLUSH 10 ML SYR IV PRN ×2 (11:15→13:45)
[2018-10-22] MEDS ORDERED: IOHEXOL 350 MG/ML 100 ML (OMNIPAQUE 350) VIAL IV ONE (11:15)
[2018-10-22] MEDS ORDERED: HOLD METFORMIN - RECEIVED CONTRAST 20 ML VIAL IV SCH (11:15)
--- NOTE | 2018-10-22 12:03 | Diagnostic Imaging Report ---
PROCEDURE: CT abdomen and pelvis with contrast. TECHNIQUE: Multiple contiguous axial images were obtained through the abdomen and pelvis after administration of intravenous contrast. Auto Exposure Controls were utilized during the CT exam to meet ALARA standards for radiation dose reduction. INDICATION: Sharp left lower quadrant pain and nausea. No prior studies are available for comparison. The lung bases are clear. Liver demonstrates a mass in the right lobe measuring 5.2 cm in size. This does show some peripheral nodular enhancement pattern with some filling in on delayed images consistent with a cavernous hemangioma. Fatty lesion in the posterior right lobe near the dome is noted measuring 9 mm. The gallbladder is unremarkable. No biliary duct dilatation is seen. The pancreas and spleen are unremarkable. No adrenal mass is identified. Small cortical cyst involving lower pole right kidney is noted. There is no hydronephrosis. Aorta is non-aneurysmal. Bowel loops are normal in caliber. There is a segment of significant wall thickening and marked pericolonic inflammatory stranding involving the sigmoid. There are multiple diverticuli present and features are consistent with acute diverticulitis. No definite abscess formation is seen at this time. There is no bowel obstruction. No free fluid or free air is seen apart from a trace free fluid in the pelvis. The bladder and uterus are unremarkable. IMPRESSION: 1. Findings consistent with acute sigmoid diverticulitis. No abscess formation or bowel obstruction is seen. 2. Right lobe liver mass with features most suggestive of cavernous hemangioma. Followup to confirm stability would be recommended. Dictated by: Dictated on workstation # [id number]
--- OUTSIDE RECORDS SUMMARY | 2018-10-22 12:51 | XMS REPORT | Continuity of Care Document ---
Author Author [facility] Organization [facility] Address Unknown Phone Unavailable Allergies Active Description Code Type Severity Reaction Onset Reported/Identified Relationship to Patient Clinical Status Yes No Known Drug Allergies [id number] Drug Allergy Unknown N/A 05/28/2012 Yes sulfamethoxazole [id number] Drug Allergy Severe NAUSEA 03/06/2017 Yes trimethoprim [id number] Drug Allergy Severe NAUSEA 03/06/2017 Yes Penicillins [id number] Drug Allergy Moderate RASH 03/06/2017 Yes TAPE [...] DISTURB 05/17/2013 FOSTER QUINN MD Ot 341.9 CEMENTER OIL WELL DEMYELINATION NOS 05/17/2013 FOSTER QUINN MD Ot 723.1 CERVICALGIA 05/17/2013 FOSTER QUINN MD Ot 784.0 HEADACHE 07/20/2013 RADHA DIGGS MD Ot 562.10 DIVERTICULOSIS COLON (W/O MENT OF HEMORR 07/20/2013 RADHA DIGGS MD Ot V76.51 SCREEN MAL NEOP-COLON 01/23/2014 SULMA GREENFIELD, JHONNY Bearden Ot 787.91 DIARRHEA 10/05/2015 Ot 599.70 10/05/2015 RADHA DIGGS MD Ot V72.84 10/05/2015 Ot 787.91 10/05/2015 NARCISO 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 SALES ASSISTANT Ot J18.9 11/25/2015 NARCISO 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 SALES ASSISTANT Ot J18.9 PNEUMONIA, UNSPECIFIED ORGANISM 03/05/2016 Ot 599.70 HEMATURIA, UNSPECIFIED 03/05/2016 DONTAE GREENFIELD, RADHA Wahl Ot V72.84 EXAM PRE-OPERATIVE NOS 03/05/2016 Ot 787.91 DIARRHEA 03/05/2016 NARCISO 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 SALES ASSISTANT Ot J18.9 PNEUMONIA, UNSPECIFIED ORGANISM 03/06/2016 NARCISO 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 SALES ASSISTANT Ot R00.0 TACHYCARDIA, UNSPECIFIED 03/06/2016 NARCISO 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 SALES ASSISTANT Ot R00.0 TACHYCARDIA, UNSPECIFIED 04/09/2016 NARCISO 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 SALES ASSISTANT Ot R00.0 TACHYCARDIA, UNSPECIFIED 03/05/2017 Ot 599.70 HEMATURIA, UNSPECIFIED 03/05/2017 DONTAE GREENFIELD, RADHA Wahl Ot V72.84 EXAM PRE-OPERATIVE NOS 03/05/2017 Ot 787.91 DIARRHEA 03/05/2017 NARCISO 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 SALES ASSISTANT Ot J18.9 PNEUMONIA, UNSPECIFIED ORGANISM 03/05/2017 NARCISO 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 SALES ASSISTANT Ot R00.0 TACHYCARDIA, UNSPECIFIED 03/05/2017 KAI GREENFIELD, [...] 03/08/2017 JOSELITO TERESA MD Ot Z79.899 OTHER GROUP HOME (CURRENT) DRUG THERAPY 03/08/2017 JOSELITO TERESA MD Ot E83.42 HYPOMAGNESEMIA 03/08/2017 JOSELITO TERESA MD, Ot E87.6 HYPOKALEMIA 03/08/2017 JOSELITO TERESA MD, Ot I10 ESSENTIAL (PRIMARY) HYPERTENSION 03/08/2017 JOSELITO TERESA MD, Ot K52.9 NONINFECTIVE GASTROENTERITIS AND COLITIS 03/08/2017 JOSELITO TERESA MD, Ot R63.4 ABNORMAL WEIGHT LOSS 03/08/2017 JOSELITO TERESA MD, Ot Z79.899 OTHER GROUP HOME (CURRENT) DRUG THERAPY Procedures Code Description [place] [address] MYOCARDIAL PERFUSION MULTI STUDIES SHOSHANA VILLAREAL 03/07/2016 [...] NR Blood erythrocyte morphology finding identification NORMAL [facility] Whole blood basic metabolic panel - 03/06/17 [...] - 03/08/17 07:35 Magnesium 1.5 mg/dL 1.8-2.4 Complete urinalysis with reflex to culture - 10/22/18 09:41 Urine color determination YELLOW NRG Urine clarity determination CLEAR NRG Urine pH measurement by test strip 7 5-9 Specific gravity of urine by test strip 1.005 1.016- 1.022 Urine protein assay by test strip, semi-quantitative NEGATIVE NEGATIVE Urine glucose detection by automated test strip NEGATIVE NEGATIVE Erythrocytes detection in urine sediment by light microscopy NEGATIVE NEGATIVE Urine ketones detection by automated test strip NEGATIVE NEGATIVE Urine nitrite detection by test strip NEGATIVE NEGATIVE Urine total bilirubin detection by test strip NEGATIVE NEGATIVE Urine urobilinogen measurement by automated test strip (mass/volume) NORMAL NORMAL Urine leukocyte esterase detection by dipstick 1+ NEGATIVE Automated urine sediment erythrocyte count by microscopy (number/high power field) NONE NRG Automated urine sediment leukocyte count by microscopy (number/high power field ) NONE NRG Bacteria detection in urine sediment by light microscopy NEGATIVE NRG Squamous epithelial cells detection in urine sediment by light microscopy 0-2 NRG Crystals detection in urine sediment by light microscopy NONE NRG Casts detection in urine sediment by light microscopy NONE NRG Mucus detection in urine sediment by light microscopy NEGATIVE NRG Complete urinalysis with reflex to culture NO NRG Complete blood count (CBC) with automated white blood cell (WBC) differential - 10/22/18 09:49 Blood leukocytes automated count (number/volume) 10.0 10*3/uL 4.3-11.0 Blood erythrocytes automated count (number/volume) 4.65 10*6/uL 4.35-5.85 Venous blood hemoglobin measurement (mass/volume) 13.8 g/dL 11.5-16.0 Blood hematocrit (volume fraction) 41 % 35-52 Automated erythrocyte mean corpuscular volume 89 [foz_us] 80-99 Automated erythrocyte mean corpuscular hemoglobin (mass per erythrocyte) 30 pg 25-34 Automated erythrocyte mean corpuscular hemoglobin concentration measurement ( mass/volume) 33 g/dL 32-36 Automated erythrocyte distribution width ratio 13.2 % 10.0-14.5 Automated blood platelet count (count/volume) 238 10*3/uL 130-400 Automated blood platelet mean volume measurement 9.5 [foz_us] 7.4-10.4 Automated blood neutrophils/100 leukocytes 81 % 42-75 Automated blood lymphocytes/100 leukocytes 11 % 12-44 Blood monocytes/100 leukocytes 8 % 0-12 Automated blood eosinophils/100 leukocytes 0 % 0-10 Automated blood basophils/100 leukocytes 0 % 0-10 Blood neutrophils automated count (number/volume) 8.1 10*3 1.8-7.8 Blood lymphocytes automated count (number/volume) 1.1 10*3 1.0-4.0 Blood monocytes automated count (number/volume) 0.8 10*3 0.0-1.0 Automated eosinophil count 0.0 10*3/uL 0.0-0.3 Automated blood basophil count (count/volume) 0.0 10*3/uL 0.0-0.1 Comprehensive metabolic panel - 10/22/18 09:49 Serum or plasma sodium measurement (moles/volume) 138 mmol/L 135-145 Serum or plasma potassium measurement (moles/volume) 3.8 mmol/L 3.6-5.0 Serum or plasma chloride measurement (moles/volume) 102 mmol/L 98-107 Carbon dioxide 26 mmol/L 21-32 Serum or plasma anion gap determination (moles/volume) 10 mmol/L 5-14 Serum or plasma urea nitrogen measurement (mass/volume) 13 mg/dL 7-18 Serum or plasma creatinine measurement (mass/volume) 0.82 mg/dL 0.60-1.30 Serum or plasma urea nitrogen/creatinine mass ratio 16 NRG Serum or plasma creatinine measurement with calculation of estimated glomerular filtration rate > NRG Serum or plasma glucose measurement (mass/volume) 94 mg/dL 70-105 Serum or plasma calcium measurement (mass/volume) 9.7 mg/dL 8.5-10.1 Serum or plasma total bilirubin measurement (mass/volume) 0.7 mg/dL 0.1-1.0 Serum or plasma alkaline phosphatase measurement (enzymatic activity/volume) 72 U/L 40-136 Serum or plasma aspartate aminotransferase measurement (enzymatic activity/ volume) 20 U/L 5-34 Serum or plasma alanine aminotransferase measurement (enzymatic activity/volume ) 16 U/L 0-55 Serum or plasma protein measurement (mass/volume) 6.9 g/dL 6.4-8.2 Serum or plasma albumin measurement (mass/volume) 4.4 g/dL 3.2-4.5 CALCIUM CORRECTED 9.4 mg/dL 8.5-10.1 Encounters ACCT No. Visit Date/Time Discharge Status Pt. Type Provider Facility Loc./Unit Complaint [id number] 03/06/2017 09:38:00 03/08/2017 12:00:00 DIS Inpatient JOSELITO TERESA MD [facility] 4TH DIARRHEA/DEHYDRATION [id number] 03/05/2017 08:10:00 03/05/2017 11:45:00 DIS Emergency FOSTER QUINN MD [facility] ER FLU SYMPTOMS/FEVER [id number] 03/05/2016 10:22:00 03/05/2016 23:59:59 CLS Outpatient NARCISO BOWEN [facility] CARD TACHYCARDIA, PALPITATIONS [id number] 10/05/2015 11:17:00 10/05/2015 23:59:59 CLS Outpatient NARCISO BOWEN [facility] RAD PNEUMONIA,COUGH [id number] 10/25/2013 10:37:00 01/23/2014 00:01:00 DIS Outpatient JHONNY OZUNA MD [facility] LAB 2 WEEKS DIARRHEA [id number] 07/20/2013 07:58:00 07/20/2013 11:10:00 DIS Outpatient RADHA DIGGS MD [facility] SDC SCREENING [id number] 07/16/2013 08:07:00 07/16/2013 23:59:59 CLS Outpatient RADHA DIGGS MD [facility] PREOP SCREENING [id number] 05/17/2013 07:38:00 05/17/2013 12:29:00 DIS Emergency FOSTER QUINN MD [facility] ER HEADACHE/NAUSEA [id number] 05/15/2013 03:00:00 05/15/2013 05:52:00 DIS Emergency THOMAS CHING MD [facility] ER PAIN IN MULTIPLE SPOTS, ARM NUMBNESS [id number] 10/22/2018 10:44:00 Document Registration [id number] 01/24/2014 00:00:00 Document Registration [id number] 05/28/2012 13:25:00 Document Registration [id number] 05/27/2012 15:34:00 Document Registration [id number] 05/26/2012 07:45:00 Document Registration [id number] 03/15/2016 00:00:00 DIS Document Registration
[2018-10-22 13:20] VITALS: BP 106/74
[2018-10-22] MEDS: CIPROFLOXACIN IV 400MG/200ML 200 ML IV SCH (14:09)
[2018-10-22] MEDS: NS IV 1000 ML 1,000 ML IV SCH (14:09)
[2018-10-22] MEDS: fentaNYL INJECTION 100 MCG/2 ML AMP IV PRN ×2 (14:09→18:56)
[2018-10-22] MEDS ORDERED: MAGN400T39 PO (14:15)
[2018-10-22] MEDS ORDERED: FLUT16SP22 NS (14:15)
--- NOTE | 2018-10-22 14:16 | NUR ---
WENT OVER THE EXT MED HX WITH THE PATIENT AND SHE VERIFIED HOW SHE TAKES THEM. SHE ALSO LISTED HER OTC MEDS.
[2018-10-22] MEDS: metroNIDAZOLE 500MG/100ML IVPB 100 ML IV SCH (15:24)
[2018-10-22 15:43] VITALS: BP 99/65
--- NOTE | 2018-10-22 17:02 | CONSULTATION REPORT ---
DATE OF SERVICE: 10/22/2018 ATTENDING PRIMARY CARE PHYSICIAN: Chanda Ramirez MD ADMITTING PHYSICIAN: Raheem Tucker DO HISTORY OF PRESENT ILLNESS: The patient is a 57-year-old female known to us. She reports that she had a new pain in the left lower abdominal quadrant starting last night and persisted throughout the night. She reported the pain is crampy in nature and was sharp. She reports that she may have had a history of constipation many years ago, however, none recently. She does have a family history of diverticulosis and diverticulitis. A CT scan was performed, which did show significant diverticulosis of the sigmoid colon with some inflammatory stranding consistent with acute diverticulitis. There is no abscess formation. The patient did have a colonoscopy in 2012 where sigmoid diverticulosis identified; however, no other abnormalities. She does not report any family history of colon cancer. PAST MEDICAL HISTORY: Hypertension, myelitis. PAST SURGICAL HISTORY: C5-C6 ORIF, tonsillectomy. ALLERGIES: TO PENICILLIN, BACTRIM. MEDICATIONS: Vitamin B12 daily, metoprolol 50 mg daily, iron daily. SOCIAL HISTORY: Negative smoke, social alcohol. FAMILY HISTORY: Noncontributory. VITAL SIGNS: Temperature 98.3, blood pressure 119/83, pulse 87, respirations 18, pulse ox 98% on room air. REVIEW OF SYSTEMS: Well-nourished female currently, in no acute distress. She is not experiencing any shortness of breath or difficulty breathing. No chest pain, palpitations, diaphoresis. No nausea or vomiting. No diarrhea or constipation. No red blood per rectum. No dark tarry stools; however, had an acute episode of left lower abdominal quadrant pain, which persisted overnight. No fever or chills. No recent inadvertent weight loss. All other review of systems negative. PHYSICAL EXAMINATION: CHEST: Clear. Good breath sounds bilaterally. HEART: Regular, no murmurs. EXTREMITIES: No lower extremity edema, negative Homans sign. HEENT: No scleral icterus. NECK: No cervical lymphadenopathy. ABDOMEN: Soft, nondistended. There is pain in the left lower abdominal quadrant upon deep palpation with voluntary guarding, no rebound. No peritoneal signs. SKIN: Warm and dry. LABORATORY DATA: WBC 10.0, hemoglobin 13.8, hematocrit 41, platelets 238, BUN 13, creatinine 0.82. ASSESSMENT AND PLAN: A 57-year-old female with acute sigmoid diverticulitis. This is her first episode and appears to be noncomplicated. We will recommend conservative therapy with bowel rest with clear liquid diet and then slowly advance to a low residue diet for the next 6 weeks. We will also continue with PO antibiotics upon discharge. Her last colonoscopy was in 2012 and after she is asymptomatic in approximately 6 to 8 weeks; We will recommend a followup colonoscopy, however, who ever she chooses to proceed with. Otherwise, we will recommend after approximately 6 to 8 weeks a high fiber diet with at least 30 grams of fiber daily as well as significant amounts of water to promote soft stools on a daily basis. She states for the most part that she has had relatively soft stools; however, has not restricted corn seeds, nuts, popcorn or other hard indigestible plant matter products and due to her history, she may need to be vigilant about avoiding these as well. Job ID: [id number] DocumentID: [id number] Dictated Date: 10/22/2018 16:12:31 Strike Planning Applications Date: 10/22/2018 17:02:01 Dictated By: MISHEL WADE MD MTDMaryuri
--- NOTE | 2018-10-22 18:29 | History & Physicial ---
History of Present Illness History of Present Illness Reason for visit/HPI Patient had left lower quadrant pain radiating to left lower back onset last night. Patient have cramping pain came out to the emergency room and had a CAT scan. CAT scan shows sigmoid diverticulitis. Patient admitted. Allergic to penicillin and Septra. Previous surgery C5 and C6, right elbow, tonsils and adenoids Family history father heart disease. Head admits to headaches denies dizziness fainting EENT denies diplopia tinnitus or throat. Denies heart problems. Denies asthma TB diabetes heart disease lung disease of smoking See chief complaint Date of Admission Oct 22, 2018 at 12:41 Time Seen by a Provider: 18:21 I consulted on this patient on 10/22/18 18:21 Attending Physician Chanda Ramirez MD Admitting Physician Chanda Ramirez MD Consult Allergies and Home Medications Allergies Coded Allergies: Penicillins (Verified Allergy, Intermediate, RASH, 10/22/18) sulfamethoxazole (Verified Adverse Reaction, Severe, NAUSEA, 10/22/18) SEVERE NAUSEA AND BODY ACHES trimethoprim (Verified Adverse Reaction, Severe, NAUSEA, 10/22/18) SEVERE NAUSEA AND BODY ACHES Uncoded Allergies: TAPE (Adverse Reaction, Mild, RASH, 03/06/17) CAUSES SKIN TO BECOME RED AND IRRITATED Home Medications Ascorbic Acid 60 Mg Lozenge, 240 MG PO DAILY, (Reported) TAKES 4 (60 MG) TABLETS Calcium Carbonate/Vitamin D3 1 Each Tablet, 1 TAB PO DAILY, (Reported) Cyanocobalamin (Vitamin B-12) 1,000 Mcg Tablet.er, 1,000 MCG PO DAILY, (Reported ) Estradiol 0.5 Mg Tablet, 0.5 MG PO DAILY, (Reported) Fluticasone Propionate 16 Gm [place].susp, 1 SPRAYS NS BID, (Reported) Magnesium Oxide 400 Mg Tablet, 400 MG PO DAILY, (Reported) Metoprolol Succinate 50 Mg Tab.er.24h, 50 MG PO DAILY, (Reported) Ped Multivit #43/Iron Fumarate 18 Mg Tab.chew, 36 MG PO DAILY, (Reported) Progesterone,Micronized 100 Mg Capsule, 100 MG PO DAILY, (Reported) Patient Home Medication List Home Medication List Reviewed: Yes Past Jztwhil-Csngxd-Wuaarn Hx Patient Social History Marrital Status: Alcohol Use: Occasionally Uses Alcohol Beverage of Choice: Beer Recreational Drug Use: No Smoking Status: Never a Smoker Physical Abuse Screen: No Sexual Abuse: No Recent Foreign Travel: No Contact w/other who traveled: No Recent Hopitalizations: No Recent Infectious Disease Expo: No Immunizations Up To Date Tetanus Booster (TDap): Unknown Pediatric: Yes Seasonal Allergies Seasonal Allergies: No Surgeries Yes (C5-C6 FUSION, ELBOW) Adenoidectomy, Orthopedic, Tonsillectomy Respiratory No Cardiovascular Yes (IRREGULAR HEART BEAT) Irregular Heartbeat Neurological Yes (MYELITIS) Reproductive System Hx Reproductive Disorders: No Genitourinary No Gastrointestinal No Musculoskeletal No Endocrine History of Endocrine Disorders: No HEENT History of HEENT Disorders: No Cancer No Psychosocial History of Psychiatric Problem: No Integumentary History of Skin or Integumenta: No Blood Transfusions History of Blood Disorders: No Family Medical History Significant Family History: No Pertinent Family Hx Family Hx: Cardiovascular disease 19 FATHER Gastroenteritis 19 FATHER (DIVERTICULITIS) GRANDFATHER (DIVERTICULITIS) Parkinson's disease 19 MOTHER Review of Systems Constitutional: no symptoms reported EENTM: no symptoms reported Respiratory: no symptoms reported Cardiovascular: no symptoms reported Gastrointestinal: abdominal pain (LLQ) Genitourinary: no symptoms reported Physical Exam Vital Signs Vital Signs - First Documented 10/22/18 09:31 Temp 98.3 Pulse 87 Resp 18 B/P (MAP) 119/83 (95) Pulse Ox 98 O2 Delivery Room Air Capillary Refill : Less Than 3 Seconds Height, Weight, BMI Height: 5'7.00" Weight: 170lbs. 0.0oz. 77.319100mo; 27.4 BMI Method:Stated General Appearance: No Apparent Distress, WD/WN Eyes: Bilateral Eye Normal Inspection HEENT: Normal ENT Inspection Neck: Normal Inspection Respiratory: Lungs Clear, No Accessory Muscle Use, No Respiratory Distress Cardiovascular: Regular Rate, Rhythm, No Murmur Gastrointestinal: Tenderness, Other (Left lower quadrant abdominal pain) Assessment/Plan Assessment and Plan Sigmoid diverticulitis Admission Diagnosis Admission Status: Inpatient Order (span 2 midnights) Reason for Inpatient Admission: Sigmoid diverticulitis Clinical Quality Measures DVT/VTE Risk/Contraindication: Risk Factor Score Per Nursin RFS Level Per Nursing on Admit: 2=Moderate ANGUS SHAH DO Oct 22, 2018 18:29
[2018-10-22] MEDS ORDERED: ENOXAPARIN 40 MG/0.4 ML (LOVENOX) SYR SC SCH (18:30)
[2018-10-22 20:00] VITALS: BP 102/70
[2018-10-22] MEDS ORDERED: ACETAMINOPHEN 325 MG TABLET PO PRN (20:15)
[2018-10-23 00:27] VITALS: BP 92/53
[2018-10-23] MEDS: CIPROFLOXACIN IV 400MG/200ML 200 ML IV SCH ×2 (00:40→13:15)
[2018-10-23] MEDS: NS IV 1000 ML 1,000 ML IV SCH (00:40)
[2018-10-23] MEDS: metroNIDAZOLE 500MG/100ML IVPB 100 ML IV SCH ×2 (02:25→13:15)
[2018-10-23 04:34] VITALS: BP 94/53
[2018-10-23 06:01] LABS: BASOPHILS % (AUTO) 0 % (0-10); EOSINOPHILS # (AUTO) 0.1 10^3/uL (0.0-0.3); EOSINOPHILS % (AUTO) 1 % (0-10); HEMATOCRIT 37 % (35-52); HEMOGLOBIN 12.5 G/DL (11.5-16.0); LYMPHOCYTES # (AUTO) 1.5 X 10^3 (1.0-4.0); LYMPHOCYTES % (AUTO) 21 % (12-44); MEAN CORPUSCULAR HEMOGLOBIN 30 PG (25-34); MEAN CORPUSCULAR HGB CONC 34 G/DL (32-36); MEAN CORPUSCULAR VOLUME 89 FL (80-99); MEAN PLATELET VOLUME 9.3 FL (7.4-10.4); MONOCYTES # (AUTO) 0.6 X 10^3 (0.0-1.0); MONOCYTES % (AUTO) 9 % (0-12); NEUTROPHILS # (AUTO) 4.6 X 10^3 (1.8-7.8); NEUTROPHILS % (AUTO) 68 % (42-75); PLATELET COUNT 220 10^3/uL (130-400); RED CELL DISTRIBUTION WIDTH 13.2 % (10.0-14.5); WHITE BLOOD COUNT 6.8 10^3/uL (4.3-11.0)
[2018-10-23 06:25] LABS: ALANINE AMINOTRANSFERASE 11 U/L (0-55); ALBUMIN 3.7 GM/DL (3.2-4.5); ALKALINE PHOSPHATASE 65 U/L (40-136); BILIRUBIN,TOTAL 0.7 MG/DL (0.1-1.0); BUN/CREATININE RATIO 15; CALCIUM 9.4 MG/DL (8.5-10.1); CARBON DIOXIDE 25 MMOL/L (21-32); CHLORIDE 108 MMOL/L (98-107); CREATININE SERUM 0.72 MG/DL (0.60-1.30); GFR ESTIMATED > 60; GLUCOSE 97 MG/DL (70-105); POTASSIUM 3.8 MMOL/L (3.6-5.0); SODIUM 140 MMOL/L (135-145); TOTAL PROTEIN 6.2 GM/DL (6.4-8.2)
[2018-10-23 08:00] VITALS: BP 97/65
--- NOTE | 2018-10-23 08:02 | Progress Note (SOAP) ---
Subjective Time Seen by a Provider: 07:59 Subjective/Events-last exam Diverticulitis. Patient feeling better today. Patient still having discomfort in the lower left quadrant. Patient afebrile. Patient had no bowel movements. Patient taking fluids Patient slept good last night Objective Exam Vital Signs Date Time Temp Pulse Resp B/P (MAP) Pulse Ox O2 Delivery O2 Flow Rate FiO2 10/23/18 04:34 97.6 64 16 94/53 (67) 97 Room Air 10/23/18 00:27 97.5 71 16 92/53 (66) 96 Room Air 10/22/18 21:36 99.4 10/22/18 20:00 100.2 85 20 102/70 (81) 96 Room Air 10/22/18 19:40 96 Room Air 10/22/18 15:43 99.1 80 20 99/65 (76) 98 Room Air 10/22/18 13:20 98.3 76 20 106/74 99 Room Air 10/22/18 13:00 76 20 106/74 (85) 99 Room Air 10/22/18 09:31 98.3 87 18 119/83 (95) 98 Room Air I & O 10/23/18 07:00 Intake Total 2490 ml Output Total 1100 ml Balance 1390 ml Capillary Refill : Less Than 3 Seconds General Appearance: No Apparent Distress, WD/WN HEENT: Normal ENT Inspection Neck: Full Range of Motion, Normal Inspection Respiratory: No Accessory Muscle Use, No Respiratory Distress Cardiovascular: Regular Rate, Rhythm, No Murmur Gastrointestinal: soft, no organomegaly, other (Discomfort in left lower quadrant, sigmoid area) Results Lab Laboratory Tests 10/22/18 09:49 10/23/18 05:35 Laboratory Tests 10/22/18 09:41: Urine Color YELLOW, Urine Clarity CLEAR, Urine pH 7, Urine Specific [place] 1.005L, Urine Protein NEGATIVE, Urine Glucose (UA) NEGATIVE, Urine Ketones NEGATIVE, Urine Nitrite NEGATIVE, Urine Bilirubin NEGATIVE, Urine Urobilinogen NORMAL, Urine Leukocyte Esterase 1+H, Urine RBC (Auto) NEGATIVE, Urine RBC NONE , Urine WBC NONE, Urine Squamous Epithelial Cells 0-2, Urine Crystals NONE, Urine Bacteria NEGATIVE, Urine Casts NONE, Urine Mucus NEGATIVE, Urine Culture Indicated NO 10/22/18 09:49: White Blood Count 10.0, Red Blood Count 4.65, Hemoglobin 13.8, Hematocrit 41, Mean Corpuscular Volume 89, Mean Corpuscular Hemoglobin 30, Mean Corpuscular Hemoglobin Concent 33, Red Cell Distribution Width 13.2, Platelet Count 238, Mean Platelet Volume 9.5, Neutrophils (%) (Auto) 81H, Lymphocytes (%) (Auto) 11L , Monocytes (%) (Auto) 8, Eosinophils (%) (Auto) 0, Basophils (%) (Auto) 0, Neutrophils # (Auto) 8.1H, Lymphocytes # (Auto) 1.1, Monocytes # (Auto) 0.8, Eosinophils # (Auto) 0.0, Basophils # (Auto) 0.0, Sodium Level 138, Potassium Level 3.8, Chloride Level 102, Carbon Dioxide Level 26, Anion Gap 10, Blood Urea Nitrogen 13, Creatinine 0.82, Estimat Glomerular Filtration Rate > 60, BUN/ Creatinine Ratio 16, Glucose Level 94, Calcium Level 9.7, Corrected Calcium 9.4 , Total Bilirubin 0.7, Aspartate Amino Transf (AST/SGOT) 20, Alanine Aminotransferase (ALT/SGPT) 16, Alkaline Phosphatase 72, Total Protein 6.9, Albumin 4.4 10/23/18 05:35: White Blood Count 6.8, Red Blood Count 4.11L, Hemoglobin 12.5, Hematocrit 37, Mean Corpuscular Volume 89, Mean Corpuscular Hemoglobin 30, Mean Corpuscular Hemoglobin Concent 34, Red Cell Distribution Width 13.2, Platelet Count 220, Mean Platelet Volume 9.3, Neutrophils (%) (Auto) 68, Lymphocytes (%) (Auto) 21, Monocytes (%) (Auto) 9, Eosinophils (%) (Auto) 1, Basophils (%) (Auto) 0, Neutrophils # (Auto) 4.6, Lymphocytes # (Auto) 1.5, Monocytes # (Auto) 0.6, Eosinophils # (Auto) 0.1, Basophils # (Auto) 0.0, Sodium Level 140, Potassium Level 3.8, Chloride Level 108H, Carbon Dioxide Level 25, Anion Gap 7, Blood Urea Nitrogen 11, Creatinine 0.72, Estimat Glomerular Filtration Rate > 60, BUN/ Creatinine Ratio 15, Glucose Level 97, Calcium Level 9.4, Corrected Calcium 9.6 , Total Bilirubin 0.7, Aspartate Amino Transf (AST/SGOT) 15, Alanine Aminotransferase (ALT/SGPT) 11, Alkaline Phosphatase 65, Total Protein 6.2L, Albumin 3.7 Assessment/Plan Assessment/Plan Assess & Plan/Chief Complaint Acute diverticulitis from sigmoid. Patient doing better. Still has some discomfort in the left lower quadrant to touch Clinical Quality Measures Admission Status Admission Dx Sigmoid diverticulitis DVT/VTE Risk/Contraindication: Risk Factor Score Per Nursin RFS Level Per Nursing on Admit: 2=Moderate ANGUS SHAH DO Oct 23, 2018 08:02
--- NOTE | 2018-10-23 11:35 | NUR ---
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 Console Manager offered prayer and blessing.
--- NOTE | 2018-10-23 11:56 | Physician Query Clarification ---
PQ-Intro New Diagnosis Admission/Discharge Admission Date: Oct 22, 2018 at 12:41 Discharge Date: The medical record reflects the following clinical scenario: History/Risk Factors: History of cervical fusion Clinical Findings: Myelitis was diagnosed under neurological condition history. Treatment: Patients home medications include: Ascorbic Acid 60mg, Calcium Carbonate/Vit D3 , Estradiol 0.5 mg, L. [place]nos[place]/C/Zinc Cit/Yeast, Metoprolol Succinate 50 mg and Ped Multivit #43/Iron Fumarate. Question: Regarding Myelitis as a diagnosis, what condition best reflects the above clinical scenario? Please document below. 1. Myelis coded as a current condition that is significant and should be listed as a diagnosis. 2. History of myelitis only. 3. Other, with explanation of the clinical findings. 4. Clinically undetermined, no explanation for the clinical findings. PHYSICIAN RESPONSE What condition reflects above: 2 In responding to this query, please exercise your independent professional judgment. The purpose of this communication is to more accurately reflect the complexity of your patients condition. The fact that a question is asked does not imply that any particular answer is desired or expected. Thank you for your timely response to this clarification. Requestors name: Mandi Carter [facility] Phone # ext [phone] or [phone] THIS PHYSICIAN QUERY FORM IS A PERMANENT PART OF THE MEDICAL RECORD MANDI CARTER Oct 23, 2018 11:56 ANGUS SHAH DO Oct 26, 2018 07:09
[2018-10-23 12:00] VITALS: BP 108/74
--- NOTE | 2018-10-23 12:34 | Progress Note (SOAP) ---
Subjective Date Seen by a Provider: Oct 23, 2018 Time Seen by a Provider: 12:15 Subjective/Events-last exam Patient reports doing well today. Reports minimal abdominal tenderness. No N/ V. No Fever/chills. Patient reported that she had a BM this AM with no blood. Tolerating liquid diet. Objective Exam Vital Signs Date Time Temp Pulse Resp B/P (MAP) Pulse Ox O2 Delivery O2 Flow Rate FiO2 10/23/18 08:00 99.4 75 16 97/65 (76) 98 Room Air 10/23/18 08:00 97 Room Air 10/23/18 04:34 97.6 64 16 94/53 (67) 97 Room Air 10/23/18 00:27 97.5 71 16 92/53 (66) 96 Room Air 10/22/18 21:36 99.4 10/22/18 20:00 100.2 85 20 102/70 (81) 96 Room Air 10/22/18 19:40 96 Room Air 10/22/18 15:43 99.1 80 20 99/65 (76) 98 Room Air 10/22/18 13:20 98.3 76 20 106/74 99 Room Air 10/22/18 13:00 76 20 106/74 (85) 99 Room Air I & O 10/23/18 07:00 Intake Total 2490 ml Output Total 1100 ml Balance 1390 ml Capillary Refill : Less Than 3 Seconds General Appearance: No Apparent Distress, WD/WN Neck: Full Range of Motion, Normal Inspection, Non Tender, Supple Respiratory: Lungs Clear, Normal Breath Sounds, No Accessory Muscle Use, No Respiratory Distress Cardiovascular: Regular Rate, Rhythm, No Edema Gastrointestinal: normal bowel sounds, soft, tenderness (LLQ) Extremity: Normal Capillary Refill, Normal Inspection, Normal Range of Motion Neurologic/Psychiatric: Alert, Oriented x3 Skin: Normal Color, Warm/Dry Results Lab Laboratory Tests 10/23/18 05:35: White Blood Count 6.8, Red Blood Count 4.11L, Hemoglobin 12.5, Hematocrit 37, Mean Corpuscular Volume 89, Mean Corpuscular Hemoglobin 30, Mean Corpuscular Hemoglobin Concent 34, Red Cell Distribution Width 13.2, Platelet Count 220, Mean Platelet Volume 9.3, Neutrophils (%) (Auto) 68, Lymphocytes (%) (Auto) 21, Monocytes (%) (Auto) 9, Eosinophils (%) (Auto) 1, Basophils (%) (Auto) 0, Neutrophils # (Auto) 4.6, Lymphocytes # (Auto) 1.5, Monocytes # (Auto) 0.6, Eosinophils # (Auto) 0.1, Basophils # (Auto) 0.0, Sodium Level 140, Potassium Level 3.8, Chloride Level 108H, Carbon Dioxide Level 25, Anion Gap 7, Blood Urea Nitrogen 11, Creatinine 0.72, Estimat Glomerular Filtration Rate > 60, BUN/ Creatinine Ratio 15, Glucose Level 97, Calcium Level 9.4, Corrected Calcium 9.6 , Total Bilirubin 0.7, Aspartate Amino Transf (AST/SGOT) 15, Alanine Aminotransferase (ALT/SGPT) 11, Alkaline Phosphatase 65, Total Protein 6.2L, Albumin 3.7 Assessment/Plan Assessment/Plan Assess & Plan/Chief Complaint A 57 year old female with acute sigmoid diverticulitis. VSS. WBC WNL Will increase to low residue diet for 6 weeks then high fiber. Encourage ambulation. DC home. DC with PO antibiotics. Follow up colonoscopy in 6-8 weeks as an outpatient. Clinical Quality Measures DVT/VTE Risk/Contraindication: Risk Factor Score Per Nursin RFS Level Per Nursing on Admit: 2=Moderate JACKSON ORTEGA APRN Oct 23, 2018 12:34
[2018-10-23] MEDS ORDERED: METR500T PO (12:53)
[2018-10-23] MEDS ORDERED: CIPR500T4 PO (12:53)
[2018-10-23] MEDS ORDERED: HYDR-3816 PO (12:53)
--- NOTE | 2018-10-23 12:55 | Discharge Inst-Surgical ---
D/C Lap Instructions-KIDO New, Converted, or Re-Newed RX: RX on Chart Follow Up Appt in 6 weeks Activity as tolerated No driving while on pain medications Low Residue diet for 6 weeks, then High Fiber Diet 25g or more per day. Avoid Alcohol, Caffeine, Spicy [place] and Acid foods. Drink 64 fluid oz or more of fluids per day. Symptoms to Report: Fever over 101 degree F, Nausea/Vomiting If any problems/questions: Contact your physician or go to Emergency Room JACKSON ORTEGA ORCHARD PRUNER Oct 23, 2018 12:55
--- NOTE | 2018-10-23 13:30 | NUR ---
LEFT MESSAGE FOR JOAN SHAFFER TO COME TALK TO THE PATIENT REGARDING THE DIVERTICULITIS DIET
[2018-10-23 15:49] VITALS: BP 108/74
--- NOTE | 2018-10-26 07:20 | Discharge Summary ---
Diagnosis/Chief Complaint Date of Admission Oct 22, 2018 at 12:41 Date of Discharge Oct 23, 2018 at 15:51 Discharge Date: Oct 23, 2018 Discharge Time: 07:18 Discharge Diagnosis Acute sigmoid diverticulitis. Right lobe liver cavernosa hemangioma Essential hypertension. Unspecified myelitis Reason Hospital Visit Patient had left lower quadrant pain radiating to left lower back onset last night. Patient have cramping pain came out to the emergency room and had a CAT scan. CAT scan shows sigmoid diverticulitis. Patient admitted. Allergic to penicillin and Septra. Previous surgery C5 and C6, right elbow, tonsils and adenoids Family history father heart disease. Head admits to headaches denies dizziness fainting EENT denies diplopia tinnitus or throat. Denies heart problems. Denies asthma TB diabetes heart disease lung disease of smoking See chief complaint Discharge Summary Procedures None Consultations Surgeon Discharge Physical Examination Allergies: Coded Allergies: Penicillins (Verified Allergy, Intermediate, RASH, 10/22/18) sulfamethoxazole (Verified Adverse Reaction, Severe, NAUSEA, 10/22/18) SEVERE NAUSEA AND BODY ACHES trimethoprim (Verified Adverse Reaction, Severe, NAUSEA, 10/22/18) SEVERE NAUSEA AND BODY ACHES Uncoded Allergies: TAPE (Adverse Reaction, Mild, RASH, 03/06/17) CAUSES SKIN TO BECOME RED AND IRRITATED Vitals & I&Os Vital Signs Date Time Temp Pulse Resp B/P (MAP) Pulse Ox O2 Delivery O2 Flow Rate FiO2 10/23/18 15:49 80 16 108/74 96 Room Air 10/23/18 12:00 99.0 Hospital Course Patient felt better. Patient discharged. Follow-up with surgeon and primary care physician Labs (last 24 hrs) Laboratory Tests 10/22/18 09:41: Urine Color YELLOW, Urine Clarity CLEAR, Urine pH 7, Urine Specific [place] 1.005L, Urine Protein NEGATIVE, Urine Glucose (UA) NEGATIVE, Urine Ketones NEGATIVE, Urine Nitrite NEGATIVE, Urine Bilirubin NEGATIVE, Urine Urobilinogen NORMAL, Urine Leukocyte Esterase 1+H, Urine RBC (Auto) NEGATIVE, Urine RBC NONE , Urine WBC NONE, Urine Squamous Epithelial Cells 0-2, Urine Crystals NONE, Urine Bacteria NEGATIVE, Urine Casts NONE, Urine Mucus NEGATIVE, Urine Culture Indicated NO 10/22/18 09:49: White Blood Count 10.0, Red Blood Count 4.65, Hemoglobin 13.8, Hematocrit 41, Mean Corpuscular Volume 89, Mean Corpuscular Hemoglobin 30, Mean Corpuscular Hemoglobin Concent 33, Red Cell Distribution Width 13.2, Platelet Count 238, Mean Platelet Volume 9.5, Neutrophils (%) (Auto) 81H, Lymphocytes (%) (Auto) 11L , Monocytes (%) (Auto) 8, Eosinophils (%) (Auto) 0, Basophils (%) (Auto) 0, Neutrophils # (Auto) 8.1H, Lymphocytes # (Auto) 1.1, Monocytes # (Auto) 0.8, Eosinophils # (Auto) 0.0, Basophils # (Auto) 0.0, Sodium Level 138, Potassium Level 3.8, Chloride Level 102, Carbon Dioxide Level 26, Anion Gap 10, Blood Urea Nitrogen 13, Creatinine 0.82, Estimat Glomerular Filtration Rate > 60, BUN/ Creatinine Ratio 16, Glucose Level 94, Calcium Level 9.7, Corrected Calcium 9.4 , Total Bilirubin 0.7, Aspartate Amino Transf (AST/SGOT) 20, Alanine Aminotransferase (ALT/SGPT) 16, Alkaline Phosphatase 72, Total Protein 6.9, Albumin 4.4 10/23/18 05:35: White Blood Count 6.8, Red Blood Count 4.11L, Hemoglobin 12.5, Hematocrit 37, Mean Corpuscular Volume 89, Mean Corpuscular Hemoglobin 30, Mean Corpuscular Hemoglobin Concent 34, Red Cell Distribution Width 13.2, Platelet Count 220, Mean Platelet Volume 9.3, Neutrophils (%) (Auto) 68, Lymphocytes (%) (Auto) 21, Monocytes (%) (Auto) 9, Eosinophils (%) (Auto) 1, Basophils (%) (Auto) 0, Neutrophils # (Auto) 4.6, Lymphocytes # (Auto) 1.5, Monocytes # (Auto) 0.6, Eosinophils # (Auto) 0.1, Basophils # (Auto) 0.0, Sodium Level 140, Potassium Level 3.8, Chloride Level 108H, Carbon Dioxide Level 25, Anion Gap 7, Blood Urea Nitrogen 11, Creatinine 0.72, Estimat Glomerular Filtration Rate > 60, BUN/ Creatinine Ratio 15, Glucose Level 97, Calcium Level 9.4, Corrected Calcium 9.6 , Total Bilirubin 0.7, Aspartate Amino Transf (AST/SGOT) 15, Alanine Aminotransferase (ALT/SGPT) 11, Alkaline Phosphatase 65, Total Protein 6.2L, Albumin 3.7 Laboratory Tests 10/22/18 09:49 10/23/18 05:35 Pending Labs Laboratory Tests 10/22/18 09:41: Urine Color YELLOW, Urine Clarity CLEAR, Urine pH 7, Urine Specific [place] 1.005, Urine Protein NEGATIVE, Urine Glucose (UA) NEGATIVE, Urine Ketones NEGATIVE, Urine Nitrite NEGATIVE, Urine Bilirubin NEGATIVE, Urine Urobilinogen NORMAL, Urine Leukocyte Esterase 1+, Urine RBC (Auto) NEGATIVE, Urine RBC NONE, Urine WBC NONE, Urine Squamous Epithelial Cells 0-2, Urine Crystals NONE, Urine Bacteria NEGATIVE, Urine Casts NONE, Urine Mucus NEGATIVE, Urine Culture Indicated NO 10/22/18 09:49: White Blood Count 10.0, Red Blood Count 4.65, Hemoglobin 13.8, Hematocrit 41, Mean Corpuscular Volume 89, Mean Corpuscular Hemoglobin 30, Mean Corpuscular Hemoglobin Concent 33, Red Cell Distribution Width 13.2, Platelet Count 238, Mean Platelet Volume 9.5, Neutrophils (%) (Auto) 81, Lymphocytes (%) (Auto) 11, Monocytes (%) (Auto) 8, Eosinophils (%) (Auto) 0, Basophils (%) (Auto) 0, Neutrophils # (Auto) 8.1, Lymphocytes # (Auto) 1.1, Monocytes # (Auto) 0.8, Eosinophils # (Auto) 0.0, Basophils # (Auto) 0.0, Sodium Level 138, Potassium Level 3.8, Chloride Level 102, Carbon Dioxide Level 26, Anion Gap 10, Blood Urea Nitrogen 13, Creatinine 0.82, Estimat Glomerular Filtration Rate > 60, BUN/ Creatinine Ratio 16, Glucose Level 94, Calcium Level 9.7, Corrected Calcium 9.4 , Total Bilirubin 0.7, Aspartate Amino Transf (AST/SGOT) 20, Alanine Aminotransferase (ALT/SGPT) 16, Alkaline Phosphatase 72, Total Protein 6.9, Albumin 4.4 10/23/18 05:35: White Blood Count 6.8, Red Blood Count 4.11, Hemoglobin 12.5, Hematocrit 37, Mean Corpuscular Volume 89, Mean Corpuscular Hemoglobin 30, Mean Corpuscular Hemoglobin Concent 34, Red Cell Distribution Width 13.2, Platelet Count 220, Mean Platelet Volume 9.3, Neutrophils (%) (Auto) 68, Lymphocytes (%) (Auto) 21, Monocytes (%) (Auto) 9, Eosinophils (%) (Auto) 1, Basophils (%) (Auto) 0, Neutrophils # (Auto) 4.6, Lymphocytes # (Auto) 1.5, Monocytes # (Auto) 0.6, Eosinophils # (Auto) 0.1, Basophils # (Auto) 0.0, Sodium Level 140, Potassium Level 3.8, Chloride Level 108, Carbon Dioxide Level 25, Anion Gap 7, Blood Urea Nitrogen 11, Creatinine 0.72, Estimat Glomerular Filtration Rate > 60, BUN/ Creatinine Ratio 15, Glucose Level 97, Calcium Level 9.4, Corrected Calcium 9.6 , Total Bilirubin 0.7, Aspartate Amino Transf (AST/SGOT) 15, Alanine Aminotransferase (ALT/SGPT) 11, Alkaline Phosphatase 65, Total Protein 6.2, Albumin 3.7 Discharge Home Medications: Active Scripts Active Hydrocodone-Acetamin 7.5-325 (Hydrocodone/Acetaminophen) 1 Each Tablet 1 Tab PO Q4H MDD 6 Ciprofloxacin HCl 500 Mg Tablet 500 Mg PO BID Flagyl (Metronidazole) 500 Mg Tablet 500 Mg PO BID Reported Magnesium (Magnesium Oxide) 400 Mg Tablet 400 Mg PO DAILY Fluticasone Propionate 16 Gm [place].susp 1 Sprays NS BID Progesterone (Progesterone,Micronized) 100 Mg Capsule 100 Mg PO DAILY Vitamin C (Ascorbic Acid) 60 Mg Lozenge 240 Mg PO DAILY TAKES 4 (60 MG) TABLETS Caltrate 600 + D Tablet (Calcium Carbonate/Vitamin D3) 1 Each Tablet 1 Tab PO DAILY Vitamin B-12 (Cyanocobalamin (Vitamin B-12)) 1,000 Mcg Tablet.er 1,000 Mcg PO DAILY Flintstones Complete Chew Tab (Ped Multivit #43/Iron Fumarate) 18 Mg Tab.chew 36 Mg PO DAILY Estradiol Tablet (Estradiol) 0.5 Mg Tablet 0.5 Mg PO DAILY Metoprolol Succinate 50 Mg Tab.er.24h 50 Mg PO DAILY Instructions to patient/family Please see electronic discharge instructions given to patient. Clinical Quality Measures DVT/VTE Risk/Contraindication: Risk Factor Score Per Nursin RFS Level Per Nursing on Admit: 2=Moderate ANGUS SHAH DO Oct 26, 2018 07:20
== END 2018-10-23 15:51 | disposition home or self-care (01) | DRG 392 ==
LOC: EDUNIT# 09:23 → ER 09:24 → 4TH 12:41
PROVIDERS: ADMIT Family Medicine; ATTEND Family Medicine
DX: K57.32 Diverticulitis of large intestine without perforation or abscess without bleeding (principal); I10 Essential (primary) hypertension; Z98.1 Arthrodesis status; Z86.69 Personal history of other diseases of the nervous system and sense organs; Z88.0 Allergy status to penicillin; Z88.2 Allergy status to sulfonamides
CPT/HCPCS: 36415; 74177; 80053; 81000; 85025

== ENCOUNTER → 2019-03-04 | Outpatient (CLI) | payer BC ==
[~2019-03-04] MED LIST changes: +CIPR500T4 PO; +FLUT16SP22 NS; +HOLD METFORMIN - RECEIVED CONTRAST 20 ML VIAL IV SCH; +HYDR-3816 PO; +IOHEXOL 350 MG/ML 100 ML (OMNIPAQUE 350) VIAL IV ONE; +MAGN400T39 PO; +METR500T PO; +NS 100 ML (IVPB) BAG IV ONE; +PROG100C11 PO
[2019-03-04 11:06] LABS: BUN/CREATININE RATIO 19; CREATININE SERUM 0.83 MG/DL (0.60-1.30); GFR ESTIMATED > 60
--- NOTE | 2019-03-04 12:30 | Diagnostic Imaging Report ---
PROCEDURE: CT abdomen with contrast only. TECHNIQUE: Multiple contiguous axial images were obtained through the abdomen after the administration of intravenous contrast. Auto Exposure Controls were utilized during the CT exam to meet ALARA standards for radiation dose reduction. INDICATION: Followup liver hemangioma. COMPARISON: Correlation is made with prior CT from 10/22/2018. FINDINGS: The lung bases are clear. Mass at the right liver dome appears stable at 4.9 cm AP compared with 5.2 cm on prior exam. Peripheral nodular enhancement with complete filling-in on the 10 minute delayed images remain consistent with cavernous hemangioma. Additional smaller circumscribed lesions in the right lobe are also stable. No new liver mass is detected. The gallbladder is unremarkable. The pancreas and spleen are unremarkable. No adrenal mass is detected. Kidneys are unremarkable. Aorta is non-aneurysmal. The intra-abdominal bowel loops are normal in caliber. The pelvis was not evaluated on today's study. There is no ascites. IMPRESSION: Stable liver lesions when compared with examination from 10/22/2018. Dictated by: Dictated on workstation # [id number]
== END ==
LOC: RAD 10:30
PROVIDERS: ATTEND Nurse Practitioner Family
DX: K76.9 Liver disease, unspecified (principal); D18.09 Hemangioma of other sites
CPT/HCPCS: 36415; 74160; 82565; 84520

== ENCOUNTER 2019-11-28 06:51 | Emergency (ER) | payer BC ==
[~2019-11-28] VITALS: Ht 170 cm; Wt 78.3 kg
[~2019-11-28 06:51] MED LIST changes: -HOLD METFORMIN - RECEIVED CONTRAST 20 ML VIAL IV SCH; +HYDR-34 PO; -HYDR-3816 PO; -IOHEXOL 350 MG/ML 100 ML (OMNIPAQUE 350) VIAL IV ONE; -METO-370 PO; +METO50TA7 PO; -NS 100 ML (IVPB) BAG IV ONE
[2019-11-28] MEDS ORDERED: LACTATED RINGERS 1,000 ML IV ONE (07:17)
[2019-11-28 07:33] LABS: BILIRUBIN,URINE NEGATIVE (NEGATIVE); CLARITY,URINE SL CLOUDY; COLOR,URINE YELLOW; GLUCOSE, URINE (UA) NEGATIVE (NEGATIVE); KETONES,URINE NEGATIVE (NEGATIVE); LEUKOCYTE ESTERASE ,URINE NEGATIVE (NEGATIVE); NITRITE,URINE NEGATIVE (NEGATIVE); PROTEIN,URINE NEGATIVE (NEGATIVE)
[2019-11-28 07:47] LABS: BASOPHILS % (AUTO) 0 % (0-10); EOSINOPHILS # (AUTO) 0.2 10^3/uL (0.0-0.3); EOSINOPHILS % (AUTO) 2 % (0-10); HEMATOCRIT 39 % (35-52); HEMOGLOBIN 12.8 G/DL (11.5-16.0); LYMPHOCYTES # (AUTO) 0.4 X 10^3 (1.0-4.0); LYMPHOCYTES % (AUTO) 5 % (12-44); MEAN CORPUSCULAR HEMOGLOBIN 29 PG (25-34); MEAN CORPUSCULAR HGB CONC 33 G/DL (32-36); MEAN CORPUSCULAR VOLUME 87 FL (80-99); MEAN PLATELET VOLUME 8.8 FL (7.4-10.4); MONOCYTES # (AUTO) 0.7 X 10^3 (0.0-1.0); MONOCYTES % (AUTO) 7 % (0-12); NEUTROPHILS # (AUTO) 7.8 X 10^3 (1.8-7.8); NEUTROPHILS % (AUTO) 86 % (42-75); PLATELET COUNT 286 10^3/uL (130-400); RED CELL DISTRIBUTION WIDTH 13.1 % (10.0-14.5); WHITE BLOOD COUNT 9.2 10^3/uL (4.3-11.0)
[2019-11-28 07:47] LABS: WBC,URINE RARE /HPF
[2019-11-28 07:48] LABS: BACTERIA,URINE TRACE /HPF
[2019-11-28 07:53] LABS: ALBUMIN 4.4 GM/DL (3.2-4.5); CHLORIDE 104 MMOL/L (98-107); POTASSIUM 3.8 MMOL/L (3.6-5.0)
[2019-11-28 07:54] LABS: SODIUM 139 MMOL/L (135-145)
[2019-11-28 07:55] LABS: AMYLASE 81 U/L (25-125); CALCIUM 9.5 MG/DL (8.5-10.1)
[2019-11-28 07:56] LABS: GLUCOSE 109 MG/DL (70-105); TOTAL PROTEIN 7.7 GM/DL (6.4-8.2)
[2019-11-28 07:57] LABS: CARBON DIOXIDE 25 MMOL/L (21-32)
[2019-11-28 07:58] LABS: BILIRUBIN,TOTAL 0.5 MG/DL (0.1-1.0)
[2019-11-28 07:59] LABS: ALKALINE PHOSPHATASE 88 U/L (40-136); CREATININE SERUM 0.92 MG/DL (0.60-1.30); GFR ESTIMATED > 60
[2019-11-28 08:00] LABS: BUN/CREATININE RATIO 14
[2019-11-28 08:02] LABS: ALANINE AMINOTRANSFERASE 17 U/L (0-55)
[2019-11-28 08:03] LABS: MAGNESIUM 2.1 MG/DL (1.6-2.4)
[2019-11-28 08:04] LABS: LIPASE 27 U/L (8-78)
--- NOTE | 2019-11-28 08:11 | Diagnostic Imaging Report ---
EXAMINATION: Acute abdomen series. INDICATION: Right flank pain The accompanying PA chest shows the heart size to be within normal limits and stable when compared to 10/05/2015. The lungs are clear. There is no evidence for failure, pneumonia or for a pleural effusion. The mediastinum is not widened. The orthopedic hardware overlying the lower cervical spine seen previously is again evident and no different. Supine and erect views of the abdomen were obtained. There is some gas in both the large and small bowel in a nonspecific fashion. There is no evidence for a bowel obstruction. There is no mass or organomegaly and there are no pathological calcifications identified. The small phleboliths overlying the low pelvis on the right seen previously on the CT exam of 10/22/2018 is again evident and no different. There is no sign of a pneumoperitoneum. The osseous structures are intact. IMPRESSION: The bowel gas pattern is nonspecific. There is no acute abnormality identified. Dictated by: Dictated on workstation # [id number]
[2019-11-28 08:14] LABS: BAND NEUTROPHILS 0 %; BASOPHILS % (MANUAL) 0 %; EOSINOPHILS % (MANUAL) 4 %; LYMPHOCYTES % (MANUAL) 6 %; MONOCYTES % (MANUAL) 4 %; NEUTROPHILS % (MANUAL) 86 %; RBC MORPH NORMAL
[2019-11-28] MEDS ORDERED: NS 100 ML (IVPB) BAG IV ONE (08:15)
[2019-11-28] MEDS ORDERED: IOHEXOL 350 MG/ML 100 ML (OMNIPAQUE 350) VIAL IV ONE (08:15)
[2019-11-28] MEDS ORDERED: HOLD METFORMIN - RECEIVED CONTRAST 20 ML VIAL IV SCH (08:15)
--- NOTE | 2019-11-28 08:25 | ED Abdominal Pain ---
General Chief Complaint: Abdominal/GI Problems Stated Complaint: DIVERTICULITIS,ALLERGIC REACTION Nursing Triage Note: pt presents to ed with complaints of r/l lower abdominal pain and back pain since friday night. reports she has hx of diverticulitis and started taking flagyl yesterday. Sepsis Screen: No Definite Risk Source of Information: Patient History of Present Illness Date Seen by Provider: November 28, 2019 Time Seen by Provider: 07:10 Initial Comments PT ARRIVES VIA POV FROM HOME C/O LEFT > RIGHT LOWER ABDOMINAL PAIN AND LOW BACK ACHE SINCE FRIDAY NO FEVER NO NAUSEA/VOMITING HAD A NORMAL BM YESTERDAY--NO BLACK/BLOODY/TARRY STOOLS NO URINARY SYMPTOMS PT HAS HISTORY OF DIVERTICULITIS--FIRST/ONLY EPISODE 1 YEAR AGO--10/2018--TREATED CONSERVATIVELY DID NOT FOLLOW UP WITH ANYONE FOR COLONOSCOPY. HAS ORDER FOR PRN FLAGYL, SO STARTED TAKING IT YESTERDAY. STATES SHE HAS A SLIGHT ITCHY RASH AROUND BOTH OF HER ANKLES AND IS CONCERNED THAT IT IS FROM FLAGYL HAS BEEN ON CLEAR LIQUIDS SINCE YESTERDAY, BUT DID HAVE SOME PRETZELS YESTERDAY ALSO DRANK SOME MAG CITRATE ON FRIDAY WHEN SYMPTOMS BEGAN PCP: DR. TERESA Allergies and Home Medications Allergies Coded Allergies: Penicillins (Verified Allergy, Intermediate, RASH, 10/22/18) sulfamethoxazole (Verified Adverse Reaction, Severe, NAUSEA, 10/22/18) SEVERE NAUSEA AND BODY ACHES trimethoprim (Verified Adverse Reaction, Severe, NAUSEA, 10/22/18) SEVERE NAUSEA AND BODY ACHES Uncoded Allergies: TAPE (Adverse Reaction, Mild, RASH, 03/06/17) CAUSES SKIN TO BECOME RED AND IRRITATED Home Medications Ascorbic Acid 60 Mg Lozenge, 240 MG PO DAILY, (Reported) TAKES 4 (60 MG) TABLETS Calcium Carbonate/Vitamin D3 1 Each Tablet, 1 TAB PO DAILY, (Reported) Ciprofloxacin HCl 500 Mg Tablet, 500 MG PO BID Prescribed by: JACKSON ORTEGA on 10/23/18 1253 Cyanocobalamin (Vitamin B-12) 1,000 Mcg Tablet.er, 1,000 MCG PO DAILY, (Reported) Estradiol 0.5 Mg Tablet, 0.5 MG PO DAILY, (Reported) Fluticasone Propionate 16 Gm Calhoun.susp, 1 SPRAYS NS BID, (Reported) Hydrocodone Bit/Acetaminophen 1 Each Tablet, 1 TAB PO Q4H Prescribed by: JACKSON ORTEGA on 10/23/18 1253 Hydrocodone/Acetaminophen 1 Each Tablet, 1 EACH PO Q4-6 HOURS PRN for PAIN Prescribed by: YAN SMITH on 11/28/19908 Levofloxacin 500 Mg Tablet, 500 MG PO DAILY Prescribed by: YAN SMITH on 11/28/19908 Magnesium Oxide 400 Mg Tablet, 400 MG PO DAILY, (Reported) Metoprolol Succinate 50 Mg Tab.er.24h, 50 MG PO DAILY, (Reported) Metronidazole 500 Mg Tablet, 500 MG PO BID Prescribed by: JACKSON ORTEGA on 10/23/18 125 Ped Multivit #43/Iron Fumarate 18 Mg Tab.chew, 36 MG PO DAILY, (Reported) Progesterone,Micronized 100 Mg Capsule, 100 MG PO DAILY, (Reported) Patient Home Medication List Home Medication List Reviewed: Yes Review of Systems Review of Systems Constitutional: no symptoms reported EENTM: No Symptoms Reported Respiratory: No Symptoms Reported Cardiovascular: No Symptoms Reported Gastrointestinal: See HPI, Abdominal Pain; Denies Constipated, Denies Diarrhea, Denies Nausea, Denies Vomiting Genitourinary: No Symptoms Reported Musculoskeletal: see HPI, back pain Skin: no symptoms reported Psychiatric/Neurological: No Symptoms Reported Endocrine: No Symptoms Reported Hematologic/Lymphatic: No Symptoms Reported Past Ycwdrve-Xpoodt-Mghhcc Hx Past Med/Social Hx: Reviewed and Corrections made Patient Social History Alcohol Use: Occasionally Uses Alcohol Beverage of Choice: Beer Recreational Drug Use: No Smoking Status: Never a Smoker Recent Foreign Travel: No Contact w/Someone Who Travel: No Recent Infectious Disease Expo: No Recent Hopitalizations: No Physical Abuse: No Sexual Abuse: No Mistreated: No Fear: No Immunizations Up To Date Tetanus Booster (TDap): Unknown PED Vaccines UTD: Yes Seasonal Allergies Seasonal Allergies: No Past Medical History Surgeries: Yes (C5-C6 FUSION;RIGHT ELBOW;COLONOSCOPY 2012) Adenoidectomy, Orthopedic, Tonsillectomy Respiratory: No Cardiac: Yes (IRREGULAR HEART BEAT) Hypertension, Irregular Heartbeat Neurological: Yes (MYELITIS) Reproductive Disorders: No Genitourinary: No Gastrointestinal: Yes Diverticulosis Musculoskeletal: Yes (NECK PAIN-C5-6 FUSION; R ELBOW SURGERY) Endocrine: No HEENT: No Cancer: No Psychosocial: No Integumentary: No Blood Disorders: No Family Medical History Cardiovascular disease 19 FATHER Gastroenteritis 19 FATHER (DIVERTICULITIS) GRANDFATHER (DIVERTICULITIS) Parkinson's disease 19 MOTHER No Pertinent Family Hx Physical Exam Vital Signs Vital Signs - First Documented 11/28/19 07:14 Temp 36.6 Pulse 95 Resp 18 B/P (MAP) 109/79 (89) Pulse Ox 97 Capillary Refill : Less Than 3 Seconds Height/Weight/BMI Height: 5'7.00" Weight: 170lbs. 0.0oz. 77.637124vd; 27.00 BMI Method:Stated General Appearance: WD/WN, no apparent distress HEENT: PERRL/EOMI, normal ENT inspection Neck: normal inspection Respiratory: normal breath sounds, no respiratory distress, no accessory muscle use Cardiovascular: regular rate, rhythm, no murmur Gastrointestinal: normal bowel sounds, soft; No distended, No guarding, No rebound; tenderness (LLQ TENDERNESS); No hernia, No mass Extremities: normal inspection Back: normal inspection, no CVA tenderness Neurologic/Psychiatric: pocket setter lockstitch II-XII nml as tested, no motor/sensory deficits, alert, normal mood/affect, oriented x 3 Skin: normal color, warm/dry, rash (VERY SMALL, VERY MILD AREA OF MACULOPAPULAR RASH TO MEDIAL ASPECT OF BOTH ANKLES-FAIRLY SYMMETRIC. ) Progress/Results/Core Measures Results/Orders Lab Results Laboratory Tests Test 11/28/19 07:25 11/28/19 07:36 Range/Units Urine Color YELLOW Urine Clarity SL CLOUDY Urine pH 6.0 5-9 Urine Specific [place] <=1.005 1.016-1.022 Urine Protein NEGATIVE NEGATIVE Urine Glucose (UA) NEGATIVE NEGATIVE Urine Ketones NEGATIVE NEGATIVE Urine Nitrite NEGATIVE NEGATIVE Urine Bilirubin NEGATIVE NEGATIVE Urine Urobilinogen 0.2 < = 1.0 MG/DL Urine Leukocyte Esterase NEGATIVE NEGATIVE Urine RBC (Auto) TRACE-I NEGATIVE Urine RBC NONE /HPF Urine WBC RARE /HPF Urine Squamous Epithelial Cells 5-10 /HPF Urine Crystals NONE /LPF Urine Bacteria TRACE /HPF Urine Casts NONE /LPF Urine Mucus NEGATIVE /LPF Urine Culture Indicated NO White Blood Count 9.2 4.3-11.0 10^3/uL Red Blood Count 4.44 4.35-5.85 10^6/uL Hemoglobin 12.8 11.5-16.0 G/DL Hematocrit 39 35-52 % Mean Corpuscular Volume 87 80-99 FL Mean Corpuscular Hemoglobin 29 25-34 PG Mean Corpuscular Hemoglobin Concent 33 32-36 G/DL Red Cell Distribution Width 13.1 10.0-14.5 % Platelet Count 286 130-400 10^3/uL Mean Platelet Volume 8.8 7.4-10.4 FL Neutrophils (%) (Auto) 86 H 42-75 % Lymphocytes (%) (Auto) 5 L 12-44 % Monocytes (%) (Auto) 7 0-12 % Eosinophils (%) (Auto) 2 0-10 % Basophils (%) (Auto) 0 0-10 % Neutrophils # (Auto) 7.8 1.8-7.8 X 10^3 Lymphocytes # (Auto) 0.4 L 1.0-4.0 X 10^3 Monocytes # (Auto) 0.7 0.0-1.0 X 10^3 Eosinophils # (Auto) 0.2 0.0-0.3 10^3/uL Basophils # (Auto) 0.0 0.0-0.1 10^3/uL Neutrophils % (Manual) 86 % Lymphocytes % (Manual) 6 % Monocytes % (Manual) 4 % Eosinophils % (Manual) 4 % Basophils % (Manual) 0 % Band Neutrophils 0 % Blood Morphology Comment NORMAL Sodium Level 139 135-145 MMOL/L Potassium Level 3.8 3.6-5.0 MMOL/L Chloride Level 104 98-107 MMOL/L Carbon Dioxide Level 25 21-32 MMOL/L Anion Gap 10 5-14 MMOL/L Blood Urea Nitrogen 13 7-18 MG/DL Creatinine 0.92 0.60-1.30 MG/DL Estimat Glomerular Filtration Rate > 60 BUN/Creatinine Ratio 14 Glucose Level 109 H 70-105 MG/DL Calcium Level 9.5 8.5-10.1 MG/DL Corrected Calcium 9.2 8.5-10.1 MG/DL Magnesium Level 2.1 1.6-2.4 MG/DL Total Bilirubin 0.5 0.1-1.0 MG/DL Aspartate Amino Transf (AST/SGOT) 22 5-34 U/L Alanine Aminotransferase (ALT/SGPT) 17 0-55 U/L Alkaline Phosphatase 88 40-136 U/L Total Protein 7.7 6.4-8.2 GM/DL Albumin 4.4 3.2-4.5 GM/DL Amylase Level 81 25-125 U/L Lipase 27 8-78 U/L My Orders Orders - YAN SMITH DO Ed Iv/Invasive Line Start (11/28/19 07:17) Amylase (11/28/19 07:17) Cbc With Automated Diff (11/28/19 07:17) Comprehensive Metabolic Panel (11/28/19 07:17) Lipase (11/28/19 07:17) Magnesium (11/28/19 07:17) Ua Culture If Indicated (11/28/19 07:17) Ed Iv/Invasive Line Start (11/28/19 07:17) Lactated Ringers (Lr 1000 Ml Iv Solution (11/28/19 07:17) Acute Abd Series (11/28/19 07:17) Ct Abdomen/Pelvis W (11/28/19 07:17) Manual Differential (11/28/19 07:36) Iohexol Injection (Omnipaque 350 Mg/Ml 1 (11/28/19 08:15) Received Contrast (Hold Metformin- Contr (11/28/19 08:15) Ns (Ivpb) (Sodium Chloride 0.9% Ivpb Bag (11/28/19 08:15) Ketorolac Injection (Toradol Injection) (11/28/19 09:00) Ceftriaxone For Iv Use (Rocephin For I (11/28/19 09:00) Levofloxacin Tablet (Levaquin Tablet) (11/28/19 09:00) Medications Given in ED Current Medications Medications Dose Ordered Sig/Deepak Route Start Time Stop Time Status Last Admin Dose Admin Ceftriaxone Sodium 1000 mg/ Sterile Water 10 ml @ 200 mls/hr ONCE ONCE IV 11/28/19 09:00 11/28/19 09:02 DC 11/28/19 09:14 200 MLS/HR Iohexol 100 ml ONCE ONCE IV 11/28/19 08:15 11/28/19 08:16 DC 11/28/19 08:14 100 ML Ketorolac Tromethamine 30 mg ONCE ONCE IVP 11/28/19 09:00 11/28/19 09:01 DC 11/28/19 09:15 30 MG Lactated Ringer's 1,000 ml @ 0 mls/hr Q0M ONCE IV 11/28/19 07:17 11/28/19 07:19 DC 11/28/19 07:41 0 MLS/HR Levofloxacin 500 mg ONCE ONCE PO 11/28/19 09:00 11/28/19 09:01 DC 11/28/19 09:15 500 MG Sodium Chloride 100 ml ONCE ONCE IV 11/28/19 08:15 11/28/19 08:16 DC 11/28/19 08:13 80 ML Vital Signs/I&O 11/28/19 07:14 Temp 36.6 Pulse 95 Resp 18 B/P (MAP) 109/79 (89) Pulse Ox 97 Blood Pressure Mean: 89 Progress Progress Note : Progress Note UNEVENTFUL ER STAY PT WANTING TO HOLD THE FLAGYL FOR NOW. WILL START ON LEVAQUIN AND FOLLOW UP WITH DR. TERESA OR SURGEON Diagnostic Imaging Comments ABDOMEN XRAYS--PER RADIOLOGIST REPORT AT 0823 IMPRESSION: The bowel gas pattern is nonspecific. There is no acute abnormality identified. CT ABDOMEN/PELVIS--PER RADIOLOGIST REPORT AT 0849 IMPRESSION: 1. There is a question of mild recurrent diverticulitis in the sigmoid colon. Clinical follow-up is recommended. 2. There is no acute abnormality of the abdomen to account for the patient's right-sided pain. The gallbladder is distended but there is no evidence for a cholelithiasis or acute cholecystitis. Additional considerations as above. 3. The suspected hemangioma in the right lobe of liver seen previously is again evident and no different. Reviewed: Reviewed by Me Departure Impression Primary Impression: Sigmoid diverticulitis Disposition: HOME, SELF-CARE Condition: Stable Departure-Patient Inst. Referrals: JOSELITO TERESA MD (PCP/Family) Primary Care Physician TAM JACKSON DO Patient Instructions: Diverticulitis (DC) Add. Discharge Instructions: CLEAR LIQUIDS--WATER, BROTH, JELLO, GATORADE FOLLOW UP WITH DR. TERESA OR SURGEON OF CHOICE--DR. JACKSON STATION AGENT TODAY FOR SURGERY All discharge instructions reviewed with patient and/or family. Voiced understanding. Scripts Hydrocodone/Acetaminophen (Hydrocodone-Acetamin 5-325 mg) 1 Each Tablet 1 EACH PO Q4-6 HOURS PRN for PAIN, #20 TAB Prov: SARAHANISHAA K DO 11/28/19 Levofloxacin (Levaquin) 500 Mg Tablet 500 MG PO DAILY, #10 TAB Prov: SARAHANISHAA K DO 11/28/19 SARAH,YAN K DO November 28, 2019 08:25
--- NOTE | 2019-11-28 08:47 | Diagnostic Imaging Report ---
PROCEDURE: CT abdomen and pelvis with contrast. TECHNIQUE: Multiple contiguous axial images were obtained through the abdomen and pelvis after administration of intravenous contrast. Auto Exposure Controls were utilized during the CT exam to meet ALARA standards for radiation dose reduction. INDICATION: Right flank pain The previous CT abdomen/pelvis exam of 10/22/2018 revealed acute sigmoid diverticulitis. On this exam there still appears to mild distortion of the mesenteric fat about the sigmoid colon. This could be a sequela of the patient's prior episode of diverticulitis. The possibility that there is an element of mild recurrent sigmoid diverticulitis should also be considered. Clinical follow-up is recommended. There is no right-sided abnormality to account for the patient's right-sided pain. Specifically, there is no evidence for obstruction of the right collecting system by a calculus nor is there any sign of pyelonephritis. There is no sign for appendicitis either although the appendix itself was not well visualized. The gallbladder is distended but there is no sign of acute cholecystitis or cholelithiasis. If further evaluation of the gallbladder is desired, then ultrasound would be recommended. There is no pelvic mass or free fluid collection noted. The urinary bladder and uterus are grossly unremarkable. As noted on the prior exam there does appear to be a large hemangioma in the right lobe of liver. The small suspected cysts in the right lobe of liver seen previously are also again evident and no different. Spleen, pancreas, adrenals, aorta and inferior vena cava show no sign of an acute abnormality. The stomach is partially filled with fluid and consequently difficult to assess. The lung bases are clear. The bone windows show no evidence for a fracture or for a destructive lesion. IMPRESSION: 1. There is a question of mild recurrent diverticulitis in the sigmoid colon. Clinical follow-up is recommended. 2. There is no acute abnormality of the abdomen to account for the patient's right-sided pain. The gallbladder is distended but there is no evidence for a cholelithiasis or acute cholecystitis. Additional considerations as above. 3. The suspected hemangioma in the right lobe of liver seen previously is again evident and no different. Dictated by: Dictated on workstation # [id number]
[2019-11-28] MEDS ORDERED: cefTRIAXone FOR IV USE 1,000 MG in WATER (STERILE) FOR INJECTION 10 ML IV ONE (09:00)
[2019-11-28] MEDS ORDERED: KETOROLAC 30 MG/ML VIAL IVP ONE (09:00)
[2019-11-28] MEDS ORDERED: LEVOFLOXACIN 500 MG TAB (LEVAQUIN) PO ONE (09:00)
[2019-11-28] MEDS ORDERED: LEVO500T2 PO (09:09)
[2019-11-28] MEDS ORDERED: HYDR-83 PO (09:09)
[2019-11-28 09:31] VITALS: BP 119/71
== END 2019-11-28 09:31 | disposition home or self-care (01) ==
LOC: EDUNIT# 06:51 → ER 06:53
DX: K57.32 Diverticulitis of large intestine without perforation or abscess without bleeding (principal); I10 Essential (primary) hypertension; Z88.0 Allergy status to penicillin; Z88.2 Allergy status to sulfonamides; Z88.1 Allergy status to other antibiotic agents; Z79.51 Long term (current) use of inhaled steroids; Z79.52 Long term (current) use of systemic steroids; Z82.49 Family history of ischemic heart disease and other diseases of the circulatory system
CPT/HCPCS: 36415; 74022; 74177; 80053; 81000; 82150; 83690; 83735; 85007; 85027

== ENCOUNTER 2020-02-29 05:43 | Outpatient (CLI) | payer BC ==
[~2020-02-29] VITALS: Ht 170.2 cm; Wt 78.3 kg
[~2020-02-29 05:43] MED LIST changes: +HYDR-3812 PO; +LEVO500T2 PO
[2020-02-29] MEDS ORDERED: MTP25TSR PO (14:52)
== END 2020-02-29 14:53 | disposition home or self-care (01) ==
LOC: PREOP 05:43
PROVIDERS: ATTEND Surgery
DX: Z01.818 Encounter for other preprocedural examination (principal)

== ENCOUNTER → 2020-06-13 | Outpatient (CLI) | payer BC ==
[~2020-06-13] MED LIST changes: +ACHD5005 PO; -HYDR-3812 PO; +MTP25TSR PO
--- NOTE | 2020-06-13 09:41 | Diagnostic Imaging Report ---
PROCEDURE: MRI right joint lower extremity without contrast. TECHNIQUE: Multiplanar, multisequence non contrast-enhanced MRI of the right lower extremity was accomplished. INDICATION: Right knee pain. COMPARISON: None. FINDINGS: No acute fracture is seen in the right knee. Alignment appears normal. Subcortical cyst-like changes and edema are seen at the lateral tibial plateau and at the patella. There is no significant joint effusion. There is an ossified joint body anterior to the knee measuring 1 cm in size, with additional smaller joint body seen posteriorly. The articular cartilage in the patellofemoral compartment demonstrates full-thickness loss at the median ridge and the lateral facet of the patella. The cartilage in the medial compartment demonstrates mild thinning and surface irregularity. The lateral compartment cartilage demonstrates moderate thinning with small defects and fissures. There is increased signal in the posterior horn of the medial meniscus which may be due to degeneration. No definite extension to the articular surface is seen. There is blunting and irregularity at the body and posterior horn of the lateral meniscus, concerning for a complex tear of the free edge. The anterior and posterior cruciate ligaments are intact. The medial collateral ligament is intact. The lateral collateral ligamentous complex appears intact. The extensor mechanism is intact. The medial and lateral retinacula are intact. IMPRESSION: 1. Degenerative changes and cartilage loss in the right knee, most pronounced in the patellofemoral and lateral compartments. 2. Complex tearing at the free edge of the lateral meniscus. 3. Small joint bodies anteriorly and posteriorly. Dictated by: Dictated on workstation # [id number]
== END ==
LOC: RAD 08:00
PROVIDERS: ATTEND Orthopaedic Surgery
DX: M23.231 Derangement of other medial meniscus due to old tear or injury, right knee (principal); M23.261 Derangement of other lateral meniscus due to old tear or injury, right knee; M17.11 Unilateral primary osteoarthritis, right knee; M22.41 Chondromalacia patellae, right knee
CPT/HCPCS: 73721

== ENCOUNTER 2020-09-07 05:42 | Outpatient (RCR) | payer BC ==
[~2020-09-07] VITALS: Ht 170.2 cm; Wt 77.3 kg
[~2020-09-07 05:42] MED LIST changes: -CIPR500T4 PO; +CIPR500T5 PO
== END 2020-09-07 14:36 | disposition home or self-care (01) ==
LOC: PREOP 05:42
PROVIDERS: ATTEND Podiatrist Foot & Ankle Surgery
DX: Z01.812 Encounter for preprocedural laboratory examination (principal); M20.11 Hallux valgus (acquired), right foot; M89.371 Hypertrophy of bone, right ankle and foot; M25.871 Other specified joint disorders, right ankle and foot; Z20.822 Contact with and (suspected) exposure to COVID-19
CPT/HCPCS: 87635

== ENCOUNTER 2020-09-11 07:11 | Day surgery (SDC) | payer BC ==
[2020-09-11] VITALS (11 sets, daily range): BP systolic 119–143; BP diastolic 76–98
[~2020-09-11] VITALS: Ht 170 cm; Wt 77.3 kg
[~2020-09-11 07:11] MED LIST changes: +BUPIVACAINE 0.5% 30 ML (SENSORCAINE) VIAL ONE; +LIDOCAINE 1% INJ 20 ML 20 ML VIAL ONE
[2020-09-11] MEDS ORDERED: LACTATED RINGERS 1,000 ML IV PRN (07:30)
[2020-09-11] MEDS ORDERED: CLINDAMYCIN 600 MG/50 ML IVPB 50 ML IV ONE (07:30)
[2020-09-11] MEDS ORDERED: proPOfol 200 MG/20 ML (DIPRIVAN) VIAL IV ONE (08:36)
[2020-09-11] MEDS ORDERED: LIDOCAINE PF 2% 5 ML (XYLOCAINE) VIAL ONE (08:36)
[2020-09-11] MEDS ORDERED: ONDANSETRON 4 MG/2 ML (SDV) Z0FRAN ONE (08:36)
[2020-09-11] MEDS ORDERED: fentaNYL INJECTION 100 MCG/2 ML AMP ONE (08:37)
[2020-09-11] MEDS ORDERED: MIDAZOLAM 2 MG/2 ML (VERSED) VIAL ONE (08:37)
[2020-09-11] MEDS ORDERED: SEVOFLURANE (ULTANE) 15 ML INHAL SOLN ONE ×7 (08:40→10:35)
--- NOTE | 2020-09-11 08:54 | Progress Note-Pre Operative ---
Pre-Operative Progress Note H&P Reviewed The H&P was reviewed, patient examined and no changes noted. Date Seen by Provider: Sep 11, 2020 Time Seen by Provider: 08:53 Date H&P Reviewed: Sep 11, 2020 Time H&P Reviewed: 08:53 Pre-Operative Diagnosis: Hallux Valgus, Hypertrophic 2nd metatarsal, soft tissue lesion, right foot KRISTINA RAVI DPM Sep 11, 2020 08:54
[2020-09-11] MEDS ORDERED: morphine INJ 10 MG/ML 1ML (SYR OR VIAL) IVP ONE (10:45)
[2020-09-11] MEDS ORDERED: PROMETHAZINE INJ 25 MG/ML (PHENERGAN) AMP IVP ONE (10:45)
[2020-09-11] MEDS ORDERED: MEPERIDINE (DEMEROL) INJ 50 MG/ML IVP ONE (10:45)
[2020-09-11] MEDS ORDERED: ONDANSETRON 4 MG/2 ML (SDV) Z0FRAN IVP PRN (10:45)
--- NOTE | 2020-09-11 10:49 | Progress Note-Post Operative ---
Post-Operative Progess Note Surgeon (s)/Physics Technical Officer (s) Surgeon KRISTINA RAVI DPM Physics Technical Officer: none Pre-Operative Diagnosis Hallux Valgus, Hypertrophic 2nd metatarsal, soft tissue lesion, right foot Post-Operative Diagnosis same Procedure & Operative Findings Date of Procedure 09/11/20 Procedure Performed/Findings [facility]-James Bunionectomy, 2nd metatarsal osteotomy, excision of soft tissue lesion, all right foot Anesthesia Type General Estimated Blood Loss Estimated blood loss (mL): Minimal Specimens/Packing Specimens Removed Soft tissue lesion right foot (ganglionic cyst) KRISTINA RAVI DPM Sep 11, 2020 10:49
[2020-09-11] MEDS ORDERED: CLIN150C2 PO (10:53)
[2020-09-11] MEDS ORDERED: ACHD5005 PO (10:53)
[2020-09-11] MEDS ORDERED: HYDROcodone/APAP 5 MG/325 MG (LORTAB) TAB PO PRN (11:00)
[2020-09-11] MEDS ORDERED: LACTATED RINGERS 1,000 ML IV SCH (11:00)
--- NOTE | 2020-09-11 13:45 | OPERATIVE REPORT ---
DATE OF SERVICE: 09/11/2020 SURGEON: Qian Gomez DPM. PREOPERATIVE DIAGNOSES: 1. Hallux abductovalgus metatarsal primus varus, right foot. 2. Hypertrophic second metatarsal, right foot. 3. Soft tissue lesion, right foot. POSTOPERATIVE DIAGNOSES: 1. Hallux abductovalgus metatarsal primus varus, right foot. 2. Hypertrophic second metatarsal, right foot. 3. Soft tissue lesion, right foot. PROCEDURES: 1. Carlton-James bunionectomy, right foot. 2. Second metatarsal osteotomy, right foot. 3. Excision of deep soft tissue lesion, right foot. WOUND CLASS: Clean. ANESTHESIA: General. HEMOSTASIS: Pneumatic thigh tourniquet at 250 mmHg. INDICATIONS: This 59-year-old female presents complaining of a painful lesion to the right foot dorsal lateral aspect. Also, the patient is complaining of a painful bunion to the right foot, especially with shoe gear and ambulation. She is also complaining about pain associated with the underside of the right forefoot associated with the second metatarsal. Conservative therapy is met with unsatisfactory results and the patient is agreeable to surgical intervention after risks and complications were discussed at length. No guarantees were extended and she is willing to proceed. DESCRIPTION OF PROCEDURE: The patient was brought back to the operating table, placed in secure supine position. Appropriate timeout was performed. General anesthetic was then induced. A pneumatic thigh tourniquet was placed on the right lower extremity over several layers of padding. The right foot was then prepped and draped in normal sterile manner. The right foot was then elevated, allowed to exsanguinate after which the tourniquet was inflated to 300 mmHg. Attention was then directed to the dorsal aspect of the right first metatarsophalangeal joint where a 6 cm longitudinal linear incision was created. The incision was created, it was deepened in the same plane with great care to identify and retract all vital neurovascular structures. When necessary blood vessels were cauterized as encountered, the incision was deepened down to the capsular tissue where a longitudinal capsulotomy was performed. This exposed the hypertrophic medial eminence to the first metatarsal head, which was excised utilizing a power sagittal saw. The dorsal eminence to the first metatarsal head was also reduced and further contoured with a power bur. Next, blunt dissection was carried out into the first intermetatarsal space where a lateral release was performed. This included a release to the lateral capsule, release to the conjoined tendon of the adductor hallucis and the fibular sesamoidal ligament. The hallux was then forcibly adducted releasing additional fibers, which were holding in its abnormal position. Attention was redirected to the medial aspect of the first metatarsal where a Chevron-type osteotomy was performed. This allowed the capital fragment to translate from medial to lateral. A second dorsal cut was performed in a V shape. This allowed the capital fragment to rotate as well as translocate laterally. The rotation improved the overall cartilaginous alignment to the metatarsal head. The new position was fixated utilizing a 0.062 threaded K-wire from dorsal proximal to plantar distal across the osteotomy. The K-wire was cut flush with the dorsal aspect of the first metatarsal. The wound was flushed with copious amounts of normal saline throughout the procedure. The head of the first metatarsal was further contoured and smoothed utilizing a power sagittal saw and power bur. Attention then directed to the proximal phalanx of the right hallux where subperiosteal dissection was carried out. Next, an James type procedure was performed cutting the wedge of bone with the base medial and the lateral cortices held intact. Once this gap was closed, excellent alignment of the hallux and first ray appreciated. Two supervising airplane pilot holes were created at the dorsal medial aspect of the osteotomy, after which a 28-gauge monofilament wire was passed through the supervising airplane pilot hole securing the osteotomy in a closed position. Excellent bony apposition and fixation was appreciated. The wound was flushed with copious amounts of normal saline. Closure was performed in layers. Deep closure was performed with 3-0 Vicryl, superficial with 4-0 Vicryl, skin closure with 4-0 Prolene in a horizontal mattress type stitch. Attention was then directed to the dorsal aspect of the right second metatarsal where a 2.5 cm longitudinal linear incision was created, after which blunt dissection was carried out to the extensor rodriguez. A sharp dissection was performed overlying the medial aspect of the extensor rodriguez and second metatarsophalangeal joint area. This allowed for exposure to the second metatarsal head. A Garett type osteotomy was then performed utilizing a power sagittal saw. The saw was parallel to what would be the weightbearing surface for the patient. The cut was performed from distal to proximal, allowing the capital fragment to translocate proximally. Once it was in its corrected position, the capital fragment was fixated to the remainder of the metatarsal utilizing a 2.0 snap-off screw 12 mm of length driven from dorsal to plantar. Excellent bony apposition and fixation was appreciated at this time. The excess tissue to the second metatarsal head was reshaped with a rongeur and filed smooth. Excellent range of motion was appreciated at the second metatarsophalangeal joint. The wounds were flushed with copious amounts of normal saline and closure was performed. Deep closure was performed with 3-0 Vicryl, superficial with 4-0 Vicryl, skin closure with 4-0 Prolene in a horizontal mattress type stitch. Attention was then directed to the dorsal lateral aspect of the right foot overlying the fourth and fifth metatarsal area. A 3 cm longitudinal linear incision was created overlying the soft tissue mass and deepened in the same plane with great care to identify and retract all vital neurovascular structures. The incision was deepened down to the extensor retinaculum, which was incised. Underneath, there was a soft tissue mass, which was filled with gelatinous clear material, it was approximately 12 mm in diameter. During the process of dissection, the structure was ruptured and the gelatinous material did exude from it grossly identified it as a ganglionic cyst. The capsule material of the ganglionic cyst was gently debrided through a combination of blunt and sharp dissection away from the extensor tendon where it seems to be a source. The area was then flushed with copious amounts of normal saline. The sheath to the extensor tendon going to the fifth digit was repaired and approximated as much as possible. This was done with 3-0 Vicryl, the subcutaneous tissue was reapproximated with 4-0 Vicryl and skin closure with 4-0 Prolene in a horizontal mattress type stitch. Postoperative injection consisted of 12 mL of 0.5% Marcaine injected in a local infusion to the surgical sites of the right foot. It also included 10 mg of dexamethasone, 5 of which was injected into the first intermetatarsal space of the right foot and the other 5 was injected to the area of the soft tissue lesion in the right foot. Postoperative dressing consisted of Betadine-soaked Adaptic to the surgical site, sterile 4 x 4, sterile Kerlix all secured with a Coban wrap. The tourniquet was released noting appropriate cap refill time to all digits of the right foot. The patient tolerated the anesthesia and procedure well and was transported from the operating room to the recovery room with vital signs stable and vascular status intact to all digits of the right foot. She is to follow up in my office in 10 days' period of time or sooner if necessary. She was given a prescription for hydrocodone as well as clindamycin. Job ID: [id number] DocumentID: [id number] Dictated Date: 09/11/2020 11:04:24 Linen Sorter Date: 09/11/2020 13:44:59 Dictated By: SHYAM GENTILE
--- NOTE | 2020-09-11 16:08 | Diagnostic Imaging Report ---
INDICATION: Immediate postop imaging after toe surgery. COMPARISON: None available. TECHNIQUE: AP and lateral views of the right foot were obtained. FINDINGS: Bunionectomy has been performed. Additionally, there are changes from remote osteotomies in the first metatarsal head and base of the first proximal phalanx. There is also a screw in the second metatarsal head, likely from prior osteotomy. No fracture. Lucency in the soft tissues at the base of the great toe may be due to an ulcer or recent post operative change. No osseous erosions. IMPRESSION: No osseous erosions or unexpected fracture. Dictated by: Dictated on workstation # [id number]
--- NOTE | 2020-09-15 06:59 | Anesthesia-General Post-Op ---
General Significant Intra-Op Events Notes late entry: 09/11/20 1130 Patient Condition Mental Status/LOC: Same as Preop Cardiovascular: Satisfactory Nausea/Vomiting: Absent Respiratory: Satisfactory Pain: Controlled Complications: Absent Post Op Complications Complications None Follow Up Care/Instructions Patient Instructions None needed. Anesthesia/Patient Condition Patient Condition Patient is doing well, no complaints, stable vital signs, no apparent adverse anesthesia problems. No complications reported per nursing. HIREN,CHRISTOPHER Johnson CRNA Sep 15, 2020 06:59
== END 2020-09-11 14:25 | disposition home or self-care (01) ==
LOC: SDC 07:11
PROVIDERS: ATTEND Podiatrist Foot & Ankle Surgery
DX: M20.11 Hallux valgus (acquired), right foot (principal); M20.31 Hallux varus (acquired), right foot; M67.471 Ganglion, right ankle and foot; I10 Essential (primary) hypertension; Z79.899 Other long term (current) drug therapy; Z91.048 Other nonmedicinal substance allergy status; Z88.0 Allergy status to penicillin; Z88.1 Allergy status to other antibiotic agents; Z88.2 Allergy status to sulfonamides; Z88.8 Allergy status to other drugs, medicaments and biological substances
CPT/HCPCS: 73620; 87081

== ENCOUNTER 2021-06-11 06:58 | Emergency (ER) | payer BC ==
[~2021-06-11] VITALS: Ht 170 cm; Wt 81.0 kg
[~2021-06-11 06:58] MED LIST changes: -BUPIVACAINE 0.5% 30 ML (SENSORCAINE) VIAL ONE; +CLIN150C2 PO; -LIDOCAINE 1% INJ 20 ML 20 ML VIAL ONE
[2021-06-11] MEDS ORDERED: KETOROLAC 30 MG/ML VIAL IVP ONE (07:30)
[2021-06-11] MEDS ORDERED: LACTATED RINGERS 1,000 ML IV ONE (07:30)
[2021-06-11 07:36] LABS: BASOPHILS % (AUTO) 0 % (0-10); EOSINOPHILS % (AUTO) 0 % (0-10); HEMATOCRIT 41 % (35-52); HEMOGLOBIN 13.5 g/dL (11.5-16.0); LYMPHOCYTES # (AUTO) 0.7 10^3/uL (1.0-4.0); LYMPHOCYTES % (AUTO) 23 % (12-44); MEAN CORPUSCULAR HEMOGLOBIN 29 pg (25-34); MEAN CORPUSCULAR HGB CONC 33 g/dL (32-36); MEAN CORPUSCULAR VOLUME 88 fL (80-99); MEAN PLATELET VOLUME 9.3 fL (9.0-12.2); MONOCYTES # (AUTO) 0.3 10^3/uL (0.0-1.0); MONOCYTES % (AUTO) 9 % (0-12); NEUTROPHILS # (AUTO) 2.1 10^3/uL (1.8-7.8); NEUTROPHILS % (AUTO) 67 % (42-75); PLATELET COUNT 177 10^3/uL (130-400); WHITE BLOOD COUNT 3.1 10^3/uL (4.3-11.0)
--- NOTE | 2021-06-11 07:38 | ED General ---
General Chief Complaint: COVID19 Suspect/Confirmed Stated Complaint: COVID +, FEVER,CHILLS,CHOPRA,COUGH Nursing Triage Note: PT STATES WAS DX COVID ON FRIDAY AT [facility], PT STATES HAS BODY ACHES, OCC COUGH AND FEVER. Source of Information: Patient Exam Limitations: No Limitations History of Present Illness Date Seen by Provider: Jun 11, 2021 Time Seen by Provider: 06:57 Initial Comments Patient to the ER by private conveyance from home with chief complaint of severe body aches keeping her from sleeping very well overnight. She took Tylenol 30 mL every 6 hours without relief of symptoms. No ibuprofen Aleve or NSAIDs. She is not on blood thinners does have a history of heart disease or kidney disease. No contraindications to NSAIDs. No significant fevers. She has a pulse oximeter and says her oxygen sats of been okay. She does not feel short of breath. She started having symptoms on Friday, 2 days ago and was diagnosed at the urgent care at the [facility] with COVID-19 on Friday 2 days ago. She is not having any nausea or vomiting. She feels dehydrated. She has an occasional nonproductive cough. No history of lung disease asthma smoking or COPD. Allergies and Home Medications Allergies Coded Allergies: Penicillins (Verified Allergy, Intermediate, RASH, 03/03/20) adhesive tape (Verified Allergy, Unknown, Rash, 03/03/20) sulfamethoxazole (Verified Adverse Reaction, Severe, NAUSEA, 03/03/20) SEVERE NAUSEA AND BODY ACHES trimethoprim (Verified Adverse Reaction, Severe, NAUSEA, 03/03/20) SEVERE NAUSEA AND BODY ACHES ciprofloxacin (Verified Adverse Reaction, Intermediate, 09/04/20) metronidazole (Verified Adverse Reaction, Intermediate, 09/04/20) Patient Home Medication List Home Medication List Reviewed: Yes Ascorbic Acid (Vitamin C) 60 Mg Lozenge, 240 MG PO DAILY, (Reported) Entered as Reported by: COLIN MACIAS on 03/06/17 1050 Benzonatate (Tessalon Perle) 100 Mg Capsule, 100 MG PO Q6H PRN for COUGH Prescribed by: AMI CASTILLO on 06/11/21 0750 Calcium Carbonate/Vitamin D3 (Caltrate 600 + D Tablet) 1 Each Tablet, 1 TAB PO DAILY, (Reported) Entered as Reported by: COLIN MACIAS on 03/06/17 1050 Clindamycin HCl (Cleocin HCl) 150 Mg Capsule, 1 CAP PO QID Prescribed by: KRISTINA RAVI on 09/11/20 1053 Cyanocobalamin (Vitamin B-12) (Vitamin B-12) 1,000 Mcg Tablet.er, 1,000 MCG PO DAILY, (Reported) Entered as Reported by: COLIN MACIAS on 03/06/17 1050 Estradiol (Estradiol Tablet) 0.5 Mg Tablet, 0.5 MG PO DAILY, (Reported) Entered as Reported by: CARLA MAR on 03/06/17 0838 Hydrocodone/Acetaminophen (Hydrocodone-Acetamin 5-325 mg) 1 Each Tablet, 1 TAB PO Q4H PRN for PAIN-MODERATE (5-7) Prescribed by: KRISTINA RAVI on 09/11/20 1053 Magnesium Oxide (Magnesium) 400 Mg Tablet, 400 MG PO DAILY, (Reported) Entered as Reported by: TAY ALY on 10/22/18 1415 Metoprolol Succinate (Metoprolol Succinate) 25 Mg Tab.er.24h, 25 MG PO DAILY, (Reported) Entered as Reported by: LIZANDRO WOODARD on 02/29/20 1452 Ondansetron (Ondansetron Odt) 4 Mg Tab.rapdis, 4 MG PO Q6H PRN for NAUSEA/VOMITING Prescribed by: AMI CASTILLO on 06/11/21 0750 Ped Multivit #43/Iron Fumarate (Flintstones Complete Chew Tab) 18 Mg Tab.chew, 36 MG PO DAILY, (Reported) Entered as Reported by: COLIN MACIAS on 03/06/17 1050 Progesterone,Micronized (Progesterone) 100 Mg Capsule, 100 MG PO DAILY, (Reported) Entered as Reported by: MARGARITO ROJAS on 10/22/18 0957 Review of Systems Review of Systems Constitutional: chills; No fever; malaise EENTM: No ear discharge, No ear pain Respiratory: No cough, No short of breath Cardiovascular: No chest pain, No edema, No palpitations Gastrointestinal: No abdominal pain, No nausea, No vomiting Genitourinary: No discharge, No dysuria Musculoskeletal: muscle pain Skin: No change in color, No pruritus, No rash All Other Systems Reviewed Negative Unless Noted: Yes Past Iyxqqnb-Ymyroi-Bnfadm Hx Patient Social History Tobacco Use?: No Substance use?: No Alcohol Use?: No Pt feels they are or have been: No Immunizations Up To Date Tetanus Booster (TDap): Unknown PED Vaccines UTD: Yes Seasonal Allergies Seasonal Allergies: No Past Medical History Surgeries: Yes Orthopedic, Tonsillectomy Respiratory: No Currently Using CPAP: No Currently Using BIPAP: No Cardiac: Yes Hypertension, Palpitations Neurological: No Reproductive Disorders: No Female Reproductive Disorders: Denies Sexually Transmitted Disease: No HIV/AIDS: No Genitourinary: No Gastrointestinal: Yes Diverticulosis Musculoskeletal: Yes Back Injury Endocrine: No HEENT: No Loss of Vision: Denies Hearing Impairment: Denies Cancer: No Psychosocial: No Integumentary: No Blood Disorders: No Family Medical History Cardiovascular disease 19 FATHER Gastroenteritis 19 FATHER (DIVERTICULITIS) GRANDFATHER (DIVERTICULITIS) Parkinson's disease 19 MOTHER No Pertinent Family Hx Physical Exam Vital Signs Vital Signs - First Documented 06/11/21 07:05 Temp 37.1 Pulse 93 Resp 18 B/P (MAP) 129/93 (105) Pulse Ox 95 O2 Delivery Room Air Capillary Refill : Less Than 3 Seconds Height, Weight, BMI Height: 5'7.00" Weight: 170lbs. 0.0oz. [id number]; 28.00 BMI Method:Stated General Appearance: WD/WN, Mild Distress Eyes: Bilateral Eye Normal Inspection, Bilateral Eye PERRL, Bilateral Eye EOMI HEENT: PERRL/EOMI; No Moist Mucous Membranes (Dry oral mucosa) Neck: Full Range of Motion, Normal Inspection, Non Tender Respiratory: Lungs Clear, Normal Breath Sounds, No Accessory Muscle Use, No Respiratory Distress Cardiovascular: Regular Rate, Rhythm, No Edema, Normal Peripheral Pulses Gastrointestinal: Non Tender, Soft Extremity: Normal Capillary Refill, Normal Inspection, Normal Range of Motion, No Pedal Edema Neurologic/Psychiatric: Alert, Oriented x3 Skin: Normal Color, Warm/Dry Progress/Results/Core Measures Suspected Sepsis SIRS Temperature: Pulse: 93 Respiratory Rate: 18 Laboratory Tests 06/11/21 07:25: White Blood Count 3.1L Blood Pressure 129 /93 Mean: 105 Laboratory Tests 06/11/21 07:25: Creatinine 0.79, Platelet Count 177 Results/Orders Lab Results Laboratory Tests Test 06/11/21 07:25 Range/Units White Blood Count 3.1 L 4.3-11.0 10^3/uL Red Blood Count 4.61 3.80-5.11 10^6/uL Hemoglobin 13.5 11.5-16.0 g/dL Hematocrit 41 35-52 % Mean Corpuscular Volume 88 80-99 fL Mean Corpuscular Hemoglobin 29 25-34 pg Mean Corpuscular Hemoglobin Concent 33 32-36 g/dL Red Cell Distribution Width 12.4 10.0-14.5 % Platelet Count 177 130-400 10^3/uL Mean Platelet Volume 9.3 9.0-12.2 fL Immature Granulocyte % (Auto) 1 % Neutrophils (%) (Auto) 67 42-75 % Lymphocytes (%) (Auto) 23 12-44 % Monocytes (%) (Auto) 9 0-12 % Eosinophils (%) (Auto) 0 0-10 % Basophils (%) (Auto) 0 0-10 % Neutrophils # (Auto) 2.1 1.8-7.8 10^3/uL Lymphocytes # (Auto) 0.7 L 1.0-4.0 10^3/uL Monocytes # (Auto) 0.3 0.0-1.0 10^3/uL Eosinophils # (Auto) 0.0 0.0-0.3 10^3/uL Basophils # (Auto) 0.0 0.0-0.1 10^3/uL Immature Granulocyte # (Auto) 0.0 0.0-0.1 10^3/uL Sodium Level 138 135-145 MMOL/L Potassium Level 3.8 3.6-5.0 MMOL/L Chloride Level 104 98-107 MMOL/L Carbon Dioxide Level 22 21-32 MMOL/L Anion Gap 12 5-14 MMOL/L Blood Urea Nitrogen 8 7-18 MG/DL Creatinine 0.79 0.60-1.30 MG/DL Estimat Glomerular Filtration Rate 75 BUN/Creatinine Ratio 10 Glucose Level 104 70-105 MG/DL Calcium Level 8.7 8.5-10.1 MG/DL My Orders Orders - AMI CASTILLO Cbc With Automated Diff (06/11/21 07:26) Basic Metabolic Panel (06/11/21 07:26) Ketorolac Injection (Toradol Injection) (06/11/21 07:30) Ed Iv/Invasive Line Start (06/11/21 07:26) Lactated Ringers (Lr 1000 Ml Iv Solution (06/11/21 07:30) Covid-19 External Lab Results (06/11/21 07:32) Isolation Central Supply Req (06/11/21 07:32) Epinephrine 1 Mg Injection (Adrenalin I (06/11/21 08:00) Diphenhydramine Injection (Benadryl Inje (06/11/21 08:00) Casirivimab/Imdevimab (Regen-Cov 1200 Mg (06/11/21 08:00) Acetaminophen Tablet (Tylenol Tablet) (06/11/21 08:00) Ondansetron Injection (Zofran Injectio (06/11/21 08:00) Medications Given in ED Current Medications Medications Dose Ordered Sig/Deepak Route Start Time Stop Time Status Last Admin Dose Admin Ketorolac Tromethamine 30 mg ONCE ONCE IVP 06/11/21 07:30 06/11/21 07:31 DC 06/11/21 07:32 30 MG Lactated Ringer's 1,000 ml @ 0 mls/hr Q0M ONCE IV 06/11/21 07:30 06/11/21 07:31 DC 06/11/21 07:32 1,000 MLS/HR Vital Signs/I&O 06/11/21 07:05 Temp 37.1 Pulse 93 Resp 18 B/P (MAP) 129/93 (105) Pulse Ox 95 O2 Delivery Room Air Capillary Refill : Less Than 3 Seconds Blood Pressure Mean: 105 Progress Note : Time: 07:45 Progress Note Aseptic vital with heart rate in the 80s. Afebrile. We will give her a shot of Toradol for her body aches, a liter of LR and check some basic labs. We will set her up for monoclonal antibody infusion here in the ER. She has obesity. Her symptoms going on for 2 days now and she is 2 days status post test positive for COVID-19. We did discuss the use of Regeneron under an emergency use authorization. We discussed the risks, benefits and alternatives. She is eager to accept the treatment. She does not have a history of latent bacterial infection that she is aware of. She would be a good candidate and could benefit from this. We did provide her with a handout and fact sheet. Departure Impression Primary Impression: COVID-19 Additional Impression: Body aches Disposition: 01 HOME, SELF-CARE Condition: Stable Departure-Patient Inst. Decision time for Depature: 08:11 Referrals: JOSELITO TERESA MD (PCP/Family) Primary Care Physician Patient Instructions: REGEN-COV (casirivimab and imdevimab) FDA Fact Sheet, COVID-19 (DC) Add. Discharge Instructions: Tylenol 650 mg every 6 hours as necessary for body aches or fever. Ibuprofen 600 mg every 6 hours as necessary for body aches or fever. Zofran 1 tablet under the tongue every 6 hours as necessary for nausea or vomiting. Tessalon Perles 1 capsule every 6 hours as necessary for cough. Promptly return to the ER for intractable vomiting, dehydration or oxygen saturations consistently below 90% while at rest. All discharge instructions reviewed with patient and/or family. Voiced understanding. Scripts Ondansetron (Ondansetron Odt) 4 Mg Tab.rapdis 4 MG PO Q6H PRN for NAUSEA/VOMITING, #8 TAB 0 Refills Prov: AMI CASTILLO 06/11/21 Benzonatate (Tessalon Perle) 100 Mg Capsule 100 MG PO Q6H PRN for COUGH, #20 CAP 0 Refills Prov: AMI CASTILLO 06/11/21 Copy Copies To 1: JOSELITO TERESA MD, TITUS J Jun 11, 2021 07:38
[2021-06-11] MEDS ORDERED: ONDA4TAB11 PO (07:50)
[2021-06-11] MEDS ORDERED: BENZ-13 PO (07:50)
[2021-06-11 07:51] LABS: POTASSIUM 3.8 MMOL/L (3.6-5.0)
[2021-06-11 07:53] LABS: CALCIUM 8.7 MG/DL (8.5-10.1)
[2021-06-11 07:57] LABS: CREATININE SERUM 0.79 MG/DL (0.60-1.30)
[2021-06-11] MEDS ORDERED: EPINEPHrine INJECTION 1 MG/ML AMP IM PRN (08:00)
[2021-06-11] MEDS ORDERED: diphenhydrAMINE 50 MG/ML INJ (BENADRYL) IV PRN (08:00)
[2021-06-11] MEDS ORDERED: ACETAMINOPHEN 500 MG TAB (TYLENOL) PO PRN (08:00)
[2021-06-11] MEDS ORDERED: CASIRIVIMAB/IMDEVIMAB 1,200 MG in NS (IVPB) 250 ML IV ONE (08:00)
[2021-06-11] MEDS ORDERED: ONDANSETRON 4 MG/2 ML (SDV) Z0FRAN IV PRN (08:00)
[2021-06-11 10:21] VITALS: BP 122/88
== END 2021-06-11 10:20 | disposition home or self-care (01) ==
LOC: EDUNIT# 06:58 → ER 07:00
DX: U07.1 COVID-19 (principal); I10 Essential (primary) hypertension
CPT/HCPCS: 36415; 80048; 85025

== ENCOUNTER → 2023-03-31 | Outpatient (CLI) | payer BC ==
[~2023-03-31] VITALS: Wt 81.0 kg
[~2023-03-31] MED LIST changes: +BENZ-13 PO; +NS IV 1000 ML 1,000 ML IV ONE; +ONDA4TAB11 PO
[2023-03-31 13:15] VITALS: BP 96/69
== END ==
LOC: SDC 09:10
PROVIDERS: ATTEND Nurse Practitioner Family
DX: U07.1 COVID-19 (principal); E86.0 Dehydration
CPT/HCPCS: 96360